=== PATIENT | male | born 1940 | race Caucasian/White ===

== ENCOUNTER 2020-11-24 11:37 | Outpatient (REF) | payer MEDICARE, OTHER, SELFPAY ==
[2020-11-24 13:59] LABS: MANUAL DIFF FLAG NO
[2020-11-24 14:07] LABS: Basophils Percent Auto 0.2 % (0-2); Eosinophils Absolute Auto 0.1 X10*3/uL (0.0-0.4); Eosinophils Percent Auto 1.2 % (0-4); Hematocrit 38.7 % (42-52); Hemoglobin 12.7 g/dl (14.0-18.0); Imm Gran Abs Auto 0.03 X10*3/uL (0.00-0.03); Imm Gran Pct Auto 0.5 % (0.0-0.4); Lymphocytes Absolute Auto 0.8 X10*3/uL (1.2-4.9); Lymphocytes Percent Auto 13.4 % (20-40); Mean Corpuscular HGB Conc 32.8 g/dl (31.0-36.0); Mean Corpuscular Hemoglobin 26.6 pg (27.0-33.0); Monocytes Absolute Auto 0.5 X10*3/uL (0.1-1.2); Monocytes Percent Auto 8.7 % (2-11); Neutrophils Absolute Auto 4.4 X10*3/uL (2.0-8.3); Platelet Count 176 X10*3/uL (160-400); Red Blood Count 4.78 X10*6/uL (4.60-5.80); Red Cell Distribution Width 13.2 % (11.0-16.0); White Blood Count 5.8 X10*3/uL (4.8-10.8)
[2020-11-24 14:39] LABS: Alanine Aminotransferase 21 U/L (0-40); Albumin Level 4.1 g/dL (3.5-5.0); Alkaline Phosphatase 66 U/L (39-117); Anion Gap 16 (12-20); Aspartate Amino Transferase 20 U/L (5-37); Bilirubin Direct 0.4 mg/dL (0.0-0.5); Blood Urea Nitrogen 13 mg/dL (9-16); Calcium 8.4 mg/dL (8.4-10.2); Carbon Dioxide 23 mmol/L (22-29); Chloride 105 mmol/L (96-108); Estimated Glomerular Filt Rate 53; Glucose Random 98 mg/dL (60-115); Potassium 4.3 mmol/l (3.3-5.1); Sodium 140 mmol/L (135-145); Total Protein 6.6 g/dL (6.5-8.0)
== END 2020-11-24 11:38 | disposition home or self-care (01) ==
LOC: HO.HMGCLDS 11:37
PROVIDERS: PCP Internal Medicine; Visit Provider Internal Medicine
DX: I10 Essential (primary) hypertension (principal); Z20.822 Contact with and (suspected) exposure to COVID-19; N40.0 Benign prostatic hyperplasia without lower urinary tract symptoms; F33.9 Major depressive disorder, recurrent, unspecified; R46.89 Other symptoms and signs involving appearance and behavior
CPT/HCPCS: 36415; 80048; 80076; 85025; U0003

== ENCOUNTER 2021-02-27 13:25 | Emergency (ER) | payer MEDICARE, BC, SELFPAY ==
--- NOTE | ~2021-02-27 | CT_ITS ---
EXAMINATION: CT CHEST WITHOUT CONTRAST CLINICAL INFORMATION: Dyspnea. COVID since November. COMPARISON: None TECHNIQUE: Multidetector volumetric CT imaging of the chest was done. Axial MIP volume rendering provided. Sagittal and coronal reformatted images were obtained. This CT examination was performed using dose optimization techniques as appropriate, variously including the following: *Automated exposure control *Adjustment of mA and/or kV according to patient size (this includes techniques or standardized protocols for targeted exams where dose is matched to indication/reason for exam; i.e. extremities or head) *Use of iterative reconstruction technique DLP: 270 mGy-cm FINDINGS: LUNGS: No evidence of acute pneumonitis or parenchymal consolidation. There is a lymph node along the minor fissure. There is a 3 mm subpleural nodule along the lateral left upper lobe on image 107 of series 5. No additional 3 mm nodule is present within the lateral right upper lobe on the same image. Scattered areas of subpleural reticulation present. Within the dependent lower lobes, there is mild subpleural scarring and accompanying traction bronchiolectasis. MEDIASTINUM: Normal heart size. Coronary calcifications. Great vessels normal caliber. No mediastinal or hilar adenopathy. Large hiatal hernia. PLEURA: There is no pleural effusion. No pleural mass or thickening. AXILLA: No lymphadenopathy. UPPER ABDOMEN: There is a 2.9 cm cyst within the anterior upper pole of the left kidney. OSSEOUS STRUCTURES: Unremarkable. CT/CT chest wo con IMPRESSION: * No evidence of acute pneumonitis or parenchymal consolidation. * Minimal subpleural fibrotic changes present throughout both lungs. * Incidental 3 mm nodules within the upper lobes bilaterally as described. If the patient is considered high risk, consider follow-up CT chest in one year per the Fleischner Society guidelines. * Large hiatal hernia. * Coronary calcifications.
[2021-02-27 13:42] VITALS: BP 116/56; PULSE 65; RESP 14; TEMP 36.8; O2SAT 98; BMI 28.3
--- NOTE | 2021-02-27 14:47 | ECG_ITS ---
Test Reason : SOB Blood Pressure : / mmHG Vent. Rate : 054 BPM Atrial Rate : 054 BPM P-R Int : 132 ms QRS Dur : 084 ms QT Int : 434 ms P-R-T Axes : 069 032 040 degrees QTc Int : 411 ms Sinus bradycardia with Premature atrial complexes with Aberrant conduction Otherwise normal ECG When compared with ECG of 04-FEB-2019 15:19, Aberrant conduction is now Present Referred By: Sola Lacy Electronically Signed By:Dario Burton
--- NOTE | 2021-02-27 14:48 | ED_ITS ---
HPI - SOB/Dyspnea General Chief Complaint: Dyspnea Stated Complaint: DIFF BREATHING Time Seen by Provider: 02/27/21 13:31 Source: patient and old records reviewed Mode of arrival: ambulatory Limitations: no limitations History of Present Illness HPI Narrative: 81 yo male with dyspnea for 3 months post COVID not back to baseline, also c/o runny nose MD elicited complaint: shortness of breath Pertinent past history: other (COVID in November) Onset (ago): month(s) Context: recent illness and occurred during exertion Timing: intermittent Severity: mild Exacerbating factors: exertion Relieving factors: nothing Associated symptoms: other (rhinorrhea) Treatment prior to arrival: none Related Data Home Medications Medication Instructions Recorded Confirmed aspirin 81 mg tablet,delayed 81 mg PO DAILY 11/23/20 02/24/21 release ferrous sulfate 325 mg (65 mg 325 mg PO DAILY 11/23/20 02/24/21 iron) tablet risperidone 0.5 mg tablet 0.5 mg PO BEDTIME 11/23/20 02/24/21 tamsulosin 0.4 mg capsule 0.4 mg PO DAILY 11/23/20 02/24/21 risperidone 1 mg tablet 1 mg PO BEDTIME 02/24/21 02/24/21 Previous Rx's Medication Instructions Recorded risperidone 0.5 mg tablet 0.5 mg PO DAILY PRN 30 Days #30 tab 11/22/20 omeprazole 40 mg capsule,delayed 40 mg PO DAILY #90 cap 12/22/20 release citalopram 20 mg tablet 20 mg PO DAILY 90 Days #90 tab 01/11/21 lisinopril 10 mg tablet 10 mg PO DAILY #90 tab 02/07/21 fluticasone propionate 1 spray INTRANASAL DAILY #16 g 02/27/21 Allergies Allergy/AdvReac Type Severity Reaction Status Date / Time No Known Drug Allergies Allergy Unknown NONE Verified 02/24/21 14:20 [NO KNOWN DRUG ALLERGIES] Review of Systems Review of Systems: Constitutional : No Fever, No Chills ENT/Mouth : No sore throat, pos Rhinorrhea, No Swallowing Difficulty Eyes: No Eye Pain, No Swelling, No Redness Cardiovascular : No Chest Pain, positive SOB, No Orthopnea, no Edema Respiratory : No Cough, No Sputum, No Wheezing, positive dyspnea Gastrointestinal : No Nausea, No Vomiting, No Diarrhea, No abdominal Pain, No Hematochezia, No Melena Genitourinary : No Dysuria, No Urinary Frequency, No Hematuria Musculoskeletal : No joint pain, No Myalgias Skin : No Skin Lesions, No rash Neuro : No Weakness, No Numbness, No Dizziness, No Headache Psych : No Anxiety/Panic, No Depression Heme/Lymph: No Bruising, No Lymphadenopathy Endocrine : No Polyuria, No Polydipsia All other systems reviewed and are negative PMFSH Past Medical History Attestation statement: The following information was validated with the patient. Source: old records reviewed Medical History Benign prostatic hyperplasia COVID-19 virus infection Depression, major, recurrent Hypertension, essential Surgical History History of orthopedic surgery Family History Family History Father Unknown family medical history Mother Unknown family medical history Social History Social History (Updated 02/27/21 @ 15:19 by Sola Lacy DO) Smoking Status: Former smoker Use of substances other than those prescribed or required for medical reasons: No Advance Directives: Yes Advance Directives Information Provided: Yes Advance Directives on File: No Physical Exam Vital Signs: Vital Signs: Last Vital Signs Temp 98.2 F 02/27/21 15:32 Pulse 54 02/27/21 15:32 Resp 16 02/27/21 15:32 BP 131/61 02/27/21 15:32 Pulse Ox 97 02/27/21 15:32 Body Mass Index 28.3 Appearance: Alert. Oriented X3. No acute distress. Eyes: Pupils equal, round and reactive to light. ENT: Pharynx normal. Neck: Normal inspection. Neck supple. CVS: Normal heart rate and rhythm. Pulses normal. Respiratory: No respiratory distress. Breath sounds normal. Abdomen: Soft and non-tender. Skin: Skin warm and dry. Normal skin color. Normal skin turgor. Extremities: No lower extremity edema. No calf ttp Neuro: Oriented X 3. No motor deficit. No sensory deficit. Course Course Course Narrative: likely pulm fibrosis will start on flonase and refer to pulmonology negative labs stable for DC MDM - SOB/Dyspnea MDM Narrative Medical decision making narrative: 81 yo male with COVID in November since then [place] no CP, worsening over past month also notes significant runny nose, sent by urgent care for further workup, no fevers, cough - states he just hasn't felt back to his baseline after COVID, labs, EKG, CT chest to assess lungs for scarring Lab Data Result diagrams: 02/27/21 15:41 02/27/21 15:41 Labs: Lab Results 02/27/21 02/27/21 02/27/21 Range/Units 15:41 15:41 15:41 WBC 6.4 (4.8-10.8) X10*3/uL RBC 4.82 (4.60-5.80) X10*6/uL Hgb 12.7 L (14.0-18.0) g/dl Hct 38.7 L (42-52) % MCV 80.3 (80-98) fL MCH 26.3 L (27.0-33.0) pg MCHC 32.8 (31.0-36.0) g/dl RDW 14.7 (11.0-16.0) % Plt Count 182 (160-400) X10*3/uL MPV 11.5 (9.4-12.4) fL Immature Gran % (Auto) 0.5 H (0.0-0.4) % Neut % (Auto) 51.9 (45-73) % Lymph % (Auto) 36.1 (20-40) % [place] % (Auto) 7.9 (2-11) % Eos % (Auto) 3.0 (0-4) % Baso % (Auto) 0.6 (0-2) % Lymph # (Auto) 2.3 (1.2-4.9) X10*3/uL [place] # (Auto) 0.5 (0.1-1.2) X10*3/uL Eos # (Auto) 0.2 (0.0-0.4) X10*3/uL Baso # (Auto) 0.0 (0.0-0.2) X10*3/uL Abs Immat Gran (auto) 0.03 (0.00-0.03) X10*3/uL Absolute Neuts (auto) 3.3 (2.0-8.3) X10*3/uL Absolute Nucleated RBC 0.000 (0.0-0.012) X10*3/uL Nucleated RBC % (auto) 0.0 (0.0-0.2) /100WBC Hold Blue Top SEE NOTE Sodium 141 (135-145) mmol/L Potassium 3.9 (3.3-5.1) mmol/L Chloride 110 H (96-108) mmol/L Carbon Dioxide 20 L (22-29) mmol/L Anion Gap 15 (12-20) BUN 18 H (9-16) mg/dL Creatinine 1.17 (0.5-1.4) mg/dL Estim Creat Clear Calc 49.0 Estimated GFR > 60 Random Glucose 79 (60-115) mg/dL Calcium 8.7 (8.4-10.2) mg/dL Magnesium 2.0 (1.6-2.6) mg/dL Total Bilirubin 0.7 (0.0-1.0) mg/dL Direct Bilirubin 0.2 (0.0-0.5) mg/dL AST 11 D (5-37) U/L ALT 14 (0-40) U/L Alkaline Phosphatase 87 D (39-117) U/L Troponin I High Sens (<3.5-35.0) ng/L B-Natriuretic Peptide (<100) pg/mL Total Protein 6.2 L (6.5-8.0) g/dL Albumin 4.1 (3.5-5.0) g/dL / Range/Units 15:41 WBC (4.8-10.8) X10*3/uL RBC (4.60-5.80) X10*6/uL Hgb (14.0-18.0) g/dl Hct (42-52) % MCV (80-98) fL MCH (27.0-33.0) pg MCHC (31.0-36.0) g/dl RDW (11.0-16.0) % Plt Count (160-400) X10*3/uL MPV (9.4-12.4) fL Immature Gran % (Auto) (0.0-0.4) % Neut % (Auto) (45-73) % Lymph % (Auto) (20-40) % [place] % (Auto) (2-11) % Eos % (Auto) (0-4) % Baso % (Auto) (0-2) % Lymph # (Auto) (1.2-4.9) X10*3/uL [place] # (Auto) (0.1-1.2) X10*3/uL Eos # (Auto) (0.0-0.4) X10*3/uL Baso # (Auto) (0.0-0.2) X10*3/uL Abs Immat Gran (auto) (0.00-0.03) X10*3/uL Absolute Neuts (auto) (2.0-8.3) X10*3/uL Absolute Nucleated RBC (0.0-0.012) X10*3/uL Nucleated RBC % (auto) (0.0-0.2) /100WBC Hold Blue Top Sodium (135-145) mmol/L Potassium (3.3-5.1) mmol/L Chloride (96-108) mmol/L Carbon Dioxide (22-29) mmol/L Anion Gap (12-20) BUN (9-16) mg/dL Creatinine (0.5-1.4) mg/dL Estim Creat Clear Calc Estimated GFR Random Glucose (60-115) mg/dL Calcium (8.4-10.2) mg/dL Magnesium (1.6-2.6) mg/dL Total Bilirubin (0.0-1.0) mg/dL Direct Bilirubin (0.0-0.5) mg/dL AST (5-37) U/L ALT (0-40) U/L Alkaline Phosphatase (39-117) U/L Troponin I High Sens < 3.5 (<3.5-35.0) ng/L B-Natriuretic Peptide 53 (<100) pg/mL Total Protein (6.5-8.0) g/dL Albumin (3.5-5.0) g/dL ECG Data Attestation: I personally reviewed and interpreted this ECG as follows: ECG interpretation date: 02/27/21 ECG interpretation time: 15:19 Interpretation: Rate: 54 Rhythm: sinus bradycardia occ PACs [place]: normal Normal P waves. Normal DEL. Normal QRS complex. ST T wave : no [place], non specific qTC: normal prior studies: no acute ischemia The study has been interpreted contemporaneously by me. . Discharge Plan Discharge Clinical Impression: Chronic dyspnea, Pulmonary fibrosis Patient Disposition: Home, Self-Care Instructions: Pulmonary Fibrosis (ED) Additional Instructions: return to ED for any worsening symptoms or concerns Prescriptions: New fluticasone propionate 50 mcg/actuation spray,suspension 1 spray intranasal DAILY Qty: 16 RF: 0 No Action risperidone 0.5 mg tablet 0.5 mg PO DAILY PRN (Reason: agitation) 30 Days Qty: 30 RF: 0 aspirin [Adult Low Dose Aspirin] 81 mg tablet,delayed release (DR/EC) 81 mg PO DAILY RF: 0 tamsulosin 0.4 mg capsule 0.4 mg PO DAILY RF: 0 ferrous sulfate 325 mg (65 mg iron) tablet 325 mg PO DAILY RF: 0 risperidone [Risperdal] 0.5 mg tablet 0.5 mg PO BEDTIME RF: 0 omeprazole 40 mg capsule,delayed release(DR/EC) 40 mg PO DAILY Qty: 90 RF: 0 citalopram 20 mg tablet 20 mg PO DAILY 90 Days Qty: 90 RF: 0 lisinopril 10 mg tablet 10 mg PO DAILY Qty: 90 RF: 3 risperidone 1 mg tablet 1 mg PO BEDTIME RF: 0 Referrals: Ger Huizar MD [Physician] - 2 weeks
[2021-02-27 15:32] VITALS: BP 131/61; PULSE 54; RESP 16; TEMP 36.8; O2SAT 97
[2021-02-27 15:46] LABS: MANUAL DIFF FLAG NO
[2021-02-27 15:47] LABS: Basophils Percent Auto 0.6 % (0-2); Eosinophils Absolute Auto 0.2 X10*3/uL (0.0-0.4); Hematocrit 38.7 % (42-52); Hemoglobin 12.7 g/dl (14.0-18.0); Imm Gran Abs Auto 0.03 X10*3/uL (0.00-0.03); Imm Gran Pct Auto 0.5 % (0.0-0.4); Lymphocytes Absolute Auto 2.3 X10*3/uL (1.2-4.9); Lymphocytes Percent Auto 36.1 % (20-40); Mean Corpuscular HGB Conc 32.8 g/dl (31.0-36.0); Mean Corpuscular Hemoglobin 26.3 pg (27.0-33.0); Mean Corpuscular Volume 80.3 fL (80-98); Mean Platelet Volume 11.5 fL (9.4-12.4); Monocytes Absolute Auto 0.5 X10*3/uL (0.1-1.2); Monocytes Percent Auto 7.9 % (2-11); Neutrophils Absolute Auto 3.3 X10*3/uL (2.0-8.3); Neutrophils Percent Auto 51.9 % (45-73); Platelet Count 182 X10*3/uL (160-400); Red Blood Count 4.82 X10*6/uL (4.60-5.80); Red Cell Distribution Width 14.7 % (11.0-16.0); White Blood Count 6.4 X10*3/uL (4.8-10.8)
[2021-02-27 16:11] LABS: Alanine Aminotransferase 14 U/L (0-40); Albumin Level 4.1 g/dL (3.5-5.0); Alkaline Phosphatase 87 U/L (39-117); Anion Gap 15 (12-20); Aspartate Amino Transferase 11 U/L (5-37); Bilirubin Direct 0.2 mg/dL (0.0-0.5); Bilirubin Total 0.7 mg/dL (0.0-1.0); Blood Urea Nitrogen 18 mg/dL (9-16); Calcium 8.7 mg/dL (8.4-10.2); Carbon Dioxide 20 mmol/L (22-29); Chloride 110 mmol/L (96-108); Estimated Glomerular Filt Rate > 60; Glucose Random 79 mg/dL (60-115); Potassium 3.9 mmol/L (3.3-5.1); Sodium 141 mmol/L (135-145); Total Protein 6.2 g/dL (6.5-8.0)
[2021-02-27 16:19] LABS: Troponin-I High Sensitivity < 3.5 ng/L (<3.5-35.0)
[2021-02-27 16:22] LABS: B Type Natriuretic Peptide 53 pg/mL (<100)
[2021-02-27 16:26] VITALS: BP 117/60; PULSE 58; RESP 16; O2SAT 96
== END 2021-02-27 16:55 | disposition home or self-care (01) ==
PROVIDERS: Emergency Provider Emergency Medicine; PCP Internal Medicine
DX: J84.10 Pulmonary fibrosis, unspecified (principal); R06.00 Dyspnea, unspecified; Z79.899 Other long term (current) drug therapy; Z87.891 Personal history of nicotine dependence; Z86.16 Personal history of COVID-19; Z79.82 Long term (current) use of aspirin
CPT/HCPCS: 36415; 71250; 80048; 80076; 83735; 83880; 84484; 85025; 93005; 99284

== ENCOUNTER → 2021-03-15 13:44 | Outpatient (BNVA) | payer MEDICARE, OTHER, SELFPAY | PROVIDERS: PCP Internal Medicine; Visit Provider Internal Medicine | DX: R06.02 Shortness of breath (principal); B94.8 Sequelae of other specified infectious and parasitic diseases; F03.90 Unspecified dementia, unspecified severity, without behavioral disturbance, psychotic disturbance, mood disturbance, and anxiety | CPT/HCPCS: 99202 ==

== ENCOUNTER → 2021-07-11 14:59 | Outpatient (BNVA) | payer MEDICARE, OTHER, SELFPAY | PROVIDERS: PCP Internal Medicine; Visit Provider Internal Medicine | DX: J30.9 Allergic rhinitis, unspecified (principal); R06.02 Shortness of breath; B94.8 Sequelae of other specified infectious and parasitic diseases; Z87.891 Personal history of nicotine dependence | CPT/HCPCS: 99212 ==

== ENCOUNTER 2021-08-24 15:07 | Outpatient (REF) | payer MEDICARE, OTHER, SELFPAY ==
[2021-08-24 16:33] LABS: MANUAL DIFF FLAG NO
[2021-08-24 16:37] LABS: Basophils Percent Auto 0.4 % (0-2); Eosinophils Absolute Auto 0.2 X10*3/uL (0.0-0.4); Eosinophils Percent Auto 3.3 % (0-4); Hematocrit 40.8 % (42-52); Hemoglobin 13.5 g/dl (14.0-18.0); Imm Gran Abs Auto 0.03 X10*3/uL (0.00-0.03); Imm Gran Pct Auto 0.4 % (0.0-0.4); Lymphocytes Absolute Auto 1.9 X10*3/uL (1.2-4.9); Lymphocytes Percent Auto 27.9 % (20-40); Mean Corpuscular HGB Conc 33.1 g/dl (31.0-36.0); Mean Corpuscular Hemoglobin 26.9 pg (27.0-33.0); Mean Corpuscular Volume 81.4 fL (80-98); Mean Platelet Volume 11.9 fL (9.4-12.4); Monocytes Absolute Auto 0.4 X10*3/uL (0.1-1.2); Monocytes Percent Auto 6.4 % (2-11); Neutrophils Absolute Auto 4.2 X10*3/uL (2.0-8.3); Neutrophils Percent Auto 61.6 % (45-73); Platelet Count 207 X10*3/uL (160-400); Red Blood Count 5.01 X10*6/uL (4.60-5.80); Red Cell Distribution Width 13.5 % (11.0-16.0); White Blood Count 6.9 X10*3/uL (4.8-10.8)
[2021-08-24 17:02] LABS: Alanine Aminotransferase 11 U/L (0-40); Albumin Level 4.5 g/dL (3.5-5.0); Alkaline Phosphatase 96 U/L (39-117); Anion Gap 13 (12-20); Aspartate Amino Transferase 11 U/L (5-37); Bilirubin Total 0.8 mg/dL (0.0-1.0); Blood Urea Nitrogen 12 mg/dL (9-16); Calcium 9.2 mg/dL (8.4-10.2); Carbon Dioxide 21 mmol/L (22-29); Chloride 108 mmol/L (96-108); Estimated Glomerular Filt Rate 50; Glucose Random 107 mg/dL (60-115); Sodium 138 mmol/L (135-145); Total Protein 6.7 g/dL (6.5-8.0)
== END 2021-08-24 15:08 | disposition home or self-care (01) ==
LOC: HO.HMGCLDS 15:07
PROVIDERS: PCP Internal Medicine; Visit Provider Internal Medicine
DX: F03.90 Unspecified dementia, unspecified severity, without behavioral disturbance, psychotic disturbance, mood disturbance, and anxiety (principal); F33.9 Major depressive disorder, recurrent, unspecified; I10 Essential (primary) hypertension; J30.9 Allergic rhinitis, unspecified; K21.9 Gastro-esophageal reflux disease without esophagitis; N40.0 Benign prostatic hyperplasia without lower urinary tract symptoms
CPT/HCPCS: 36415; 80053; 85025

== ENCOUNTER 2022-05-12 09:22 | Outpatient (REF) | payer MEDICARE, OTHER, SELFPAY ==
[2022-05-12 11:25] LABS: MANUAL DIFF FLAG NO
[2022-05-12 11:36] LABS: Basophils Percent Auto 0.5 % (0-2); Eosinophils Absolute Auto 0.2 X10*3/uL (0.0-0.4); Hematocrit 39.3 % (42.0-52.0); Imm Gran Abs Auto 0.02 X10*3/uL (0.00-0.03); Imm Gran Pct Auto 0.4 % (0.0-0.4); Lymphocytes Percent Auto 36.4 % (20-40); Mean Corpuscular HGB Conc 33.1 g/dl (31.0-36.0); Mean Corpuscular Hemoglobin 26.9 pg (27.0-33.0); Mean Corpuscular Volume 81.4 fL (80.0-98.0); Mean Platelet Volume 11.7 fL (9.4-12.4); Monocytes Absolute Auto 0.5 X10*3/uL (0.1-1.2); Monocytes Percent Auto 8.3 % (2-11); Neutrophils Absolute Auto 2.8 x10*3/uL (2.0-8.3); Neutrophils Percent Auto 50.4 % (45-73); Platelet Count 186 X10*3/uL (160-400); Red Blood Count 4.83 X10*6/uL (4.60-5.80); Red Cell Distribution Width 14.1 % (11.0-16.0); White Blood Count 5.6 X10*3/uL (4.8-10.8)
[2022-05-12 11:48] LABS: Alanine Aminotransferase 11 U/L (0-40); Albumin Level 4.4 g/dL (3.5-5.0); Alkaline Phosphatase 96 U/L (39-117); Anion Gap 10 (12-20); Aspartate Amino Transferase 12 U/L (5-37); Bilirubin Total 0.3 mg/dL (0.0-1.0); Blood Urea Nitrogen 15 mg/dL (9-16); Calcium 9.1 mg/dL (8.4-10.2); Carbon Dioxide 26 mmol/L (22-29); Chloride 109 mmol/L (96-108); Estimated Glomerular Filt Rate 52; Glucose Random 107 mg/dL (60-115); Potassium 4.3 mmol/L (3.3-5.1); Sodium 141 mmol/L (135-145); Total Protein 6.9 g/dL (6.5-8.0)
== END 2022-05-12 09:23 | disposition home or self-care (01) ==
LOC: HO.HMGCLDS 09:22
PROVIDERS: Visit Provider Internal Medicine
DX: F03.90 Unspecified dementia, unspecified severity, without behavioral disturbance, psychotic disturbance, mood disturbance, and anxiety (principal); F33.9 Major depressive disorder, recurrent, unspecified; I10 Essential (primary) hypertension; K21.9 Gastro-esophageal reflux disease without esophagitis; N40.0 Benign prostatic hyperplasia without lower urinary tract symptoms
CPT/HCPCS: 36415; 80053; 85025

== ENCOUNTER 2023-02-22 11:32 | Outpatient (REF) | payer MEDICARE, OTHER, SELFPAY ==
[2023-02-22 11:46] LABS: MANUAL DIFF FLAG NO
[2023-02-22 12:08] LABS: Basophils Percent Auto 0.7 % (0-2); Eosinophils Absolute Auto 0.2 X10*3/uL (0.0-0.4); Eosinophils Percent Auto 3.5 % (0-4); Hematocrit 39.6 % (42.0-52.0); Hemoglobin 12.9 g/dl (14.0-18.0); Imm Gran Abs Auto 0.04 X10*3/uL (0.00-0.03); Imm Gran Pct Auto 0.7 % (0.0-0.4); Lymphocytes Percent Auto 33.1 % (20-40); Mean Corpuscular HGB Conc 32.6 g/dl (31.0-36.0); Mean Corpuscular Hemoglobin 25.6 pg (27.0-33.0); Mean Corpuscular Volume 78.7 fL (80.0-98.0); Mean Platelet Volume 11.7 fL (9.4-12.4); Monocytes Absolute Auto 0.5 X10*3/uL (0.1-1.2); Monocytes Percent Auto 8.5 % (2-11); Neutrophils Absolute Auto 3.2 x10*3/uL (2.0-8.3); Neutrophils Percent Auto 53.5 % (45-73); Platelet Count 203 X10*3/uL (160-400); Red Blood Count 5.03 X10*6/uL (4.60-5.80); Red Cell Distribution Width 13.6 % (11.0-16.0)
[2023-02-22 12:35] LABS: Alanine Aminotransferase 10 U/L (0-40); Albumin Level 4.4 g/dL (3.5-5.0); Alkaline Phosphatase 97 U/L (39-117); Anion Gap 10 (12-20); Aspartate Amino Transferase 13 U/L (5-37); Bilirubin Total 0.6 mg/dL (0.0-1.0); Blood Urea Nitrogen 18 mg/dL (9-16); Calcium 8.9 mg/dL (8.4-10.2); Carbon Dioxide 28 mmol/L (22-29); Chloride 108 mmol/L (96-108); Estimated Glomerular Filt Rate 50; Glucose Random 95 mg/dL (60-115); Potassium 4.5 mmol/L (3.3-5.1); Sodium 141 mmol/L (135-145); Total Protein 6.5 g/dL (6.5-8.0)
[2023-02-22 13:00] LABS: Vitamin B12 308 pg/mL (200-900)
[2023-02-24 07:28] LABS: LDL Cholesterol Direct 99 mg/dL (<100)
[2023-02-28 10:34] LABS: Vitamin D 25-OH, D2 <4 ng/mL; Vitamin D 25-OH, D3 13 ng/mL; Vitamin D 25-OH, Total 13 ng/mL (30-100)
== END 2023-02-22 11:33 | disposition home or self-care (01) ==
LOC: HO.LAB 11:32
PROVIDERS: PCP Internal Medicine; Visit Provider Internal Medicine
DX: I10 Essential (primary) hypertension (principal); F33.9 Major depressive disorder, recurrent, unspecified; N40.0 Benign prostatic hyperplasia without lower urinary tract symptoms; K21.9 Gastro-esophageal reflux disease without esophagitis; F03.90 Unspecified dementia, unspecified severity, without behavioral disturbance, psychotic disturbance, mood disturbance, and anxiety; R53.83 Other fatigue
CPT/HCPCS: 36415; 80053; 82306; 82607; 83721; 84443; 85025

== ENCOUNTER 2023-06-20 12:15 | Outpatient (AMB) | payer MEDICARE, OTHER, SELFPAY ==
--- NOTE | 2023-06-20 12:17 | MHC.PC.OV ---
Vital Signs 06/20/23 12:19 Height 5 ft 6 in Weight 164 lb 8 oz BMI 26.5 BP 140/62 H Blood Pressure Location Rt brachial Position Sitting Pulse 76 Pulse Source Pulse Oximeter Pulse Oximetry (%) 96 Oxygen Delivery Method Room Air Intake Visit Reasons: Benign prostatic hyperplasia ~ Follow Up Allergies No Known Drug Allergies [NO KNOWN DRUG ALLERGIES] Allergy (Unknown, Verified 06/20/23 12:18) NONE Medication List - Last Reconciled 06/20/23 by Elen Gamez MD aspirin (Adult Low Dose Aspirin) 81 mg PO DAILY citalopram 20 mg PO DAILY lisinopril 10 mg PO DAILY omeprazole 40 mg PO DAILY Tobacco use date assessed: 06/20/23 Fall risk assessment: No Falls in past year Last assessed Fall Risk: 06/20/23 Dental Screening Dental Screen Date: 06/20/23 Did you have a dental visit in the last 12 months?: No Did you have a dental problem in the last 6 months where you did not have access to dental care?: No Was dental information given to patient?: No HPI Benign prostatic hyperplasia ~ Follow Up HPI Details Patient is 83-year-old gentleman this is his regular follow-up appointment Patient is here with his today Patient is stable and is very active. Dementia is stable he is answering appropriately He was on risperidone for agitation in the past which has been stopped he is doing well since he has been started on citalopram Blood pressure is stable patient is on lisinopril 10 mg GERD is stable with omeprazole 40 mg.? 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 Labs needs to be repeated in 3 months with a follow-up appointment in 4 months [facility] Medical History Benign prostatic hyperplasia COVID-19 virus infection Depression, major, recurrent Hypertension, essential Post-COVID syndrome Surgical History History of orthopedic surgery Family History Father Unknown family medical history Mother Unknown family medical history Social History Housing: House Patient Tobacco Use Status: Former Tobacco user Quit Date: 1999 Tobacco use type: Cigarette e-Cigarette/Vaping Use: Never Used service: No Current occupational status: retired Cognitive needs: No Hearing needs: No Vision needs: No Questionnaire Thrive Questionnaire Date Thrive assessed: 05/24/21 AUDIT C Alcohol Use Questionnaire (AUDIT-C) 1. How often do you have a drink containing alcohol?: Monthly or less 2. How many drinks containing alcohol do you have on a typical day when you are drinking?: 1 or 2 3. How often do you have six or more drinks on one occasion?: Never Total Score: 1 Review of Systems Const Denies chills and Denies fever(s) ENT Denies epistaxis and Denies nasal discharge Card Denies chest pain Resp Denies chest congestion, Denies cough and Denies hemoptysis GI Denies diarrhea and Denies nausea Skin/Breast Denies rash Neuro Reports no additional complaints Psych Reports no additional complaints Endo Reports no additional complaints Physical exam (Primary Care) Vital Signs: Last Vital Signs Pulse 76 06/20/23 12:19 BP 140/62 H 06/20/23 12:19 Pulse Ox 96 06/20/23 12:19 Oxygen Delivery Method Room Air 06/20/23 12:19 BMI result Body Mass Index 26.5 Tobacco/Smoking Status: Tobacco use Status Tobacco use date assessed 06/20/23 06/20/23 12:20 Patient Tobacco Use Status Former Tobacco user 06/20/23 12:18 Tobacco use type Cigarette 06/20/23 12:18 e-Cigarette/Vaping Use Never Used 06/20/23 12:18 Thrive Assessment: Date of Thrive Assessment Date Thrive assessed 05/24/21 06/20/23 12:18 Const General: cooperative, comfortable and no acute distress Orientation/consciousness: patient oriented x3 [facility] Head: Yes normocephalic Eyes General: appearance normal, both eyes and all related structures Neck Neck: Yes supple Resp Effort & Inspection: normal respiratory effort, no cough and no stridor Cardio Rhythm: regular rhythm Heart sounds: S1 normal heart sound present and S2 normal heart sound present Skin General skin exam: turgor normal Neuro General: patient oriented x3, tone normal and moves all extremities Extrem Right lower extremity: no edema Left lower extremity: no edema Assessment and Plan Assessment & Plan (1) Hypertension, essential: Code(s): I10 - Essential (primary) hypertension (2) Depression, major, recurrent: Code(s): F33.9 - Major depressive disorder, recurrent, unspecified (3) Benign prostatic hyperplasia: Code(s): N40.0 - Benign prostatic hyperplasia without lower urinary tract symptoms (4) Dementia, senile: Code(s): F03.90 - Unspecified dementia, unspecified severity, without behavioral disturbance, psychotic disturbance, mood disturbance, and anxiety (5) Chronic GERD: Code(s): K21.9 - Gastro-esophageal reflux disease without esophagitis (6) Nephropathy: Code(s): N28.9 - Disorder of kidney and ureter, unspecified Plan Patient is 83-year-old gentleman this is his regular follow-up appointment Patient is here with his today Patient is stable and is very active. Dementia is stable he is answering appropriately He was on risperidone for agitation in the past which has been stopped he is doing well since he has been started on citalopram Blood pressure is stable patient is on lisinopril 10 mg GERD is stable with omeprazole 40 mg.? 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 Labs needs to be repeated in 3 months with a follow-up appointment in 4 months Orders: Orders Complete Blood Count Auto Diff Today F03.90 - Unspecified dementia, unspecified severity, without behavioral disturbance, psychotic disturbance, mood disturbance, and anxiety, F33.9 - Major depressive disorder, recurrent, unspecified, I10 - Essential (primary) hypertension, K21.9 - Gastro-esophageal reflux disease without esophagitis, N28.9 - Disorder of kidney and ureter, unspecified, N40.0 - Benign prostatic hyperplasia without lower urinary tract symptoms Comprehensive Met. Panel Today F03.90 - Unspecified dementia, unspecified severity, without behavioral disturbance, psychotic disturbance, mood disturbance, and anxiety, F33.9 - Major depressive disorder, recurrent, unspecified, I10 - Essential (primary) hypertension, K21.9 - Gastro-esophageal reflux disease without esophagitis, N28.9 - Disorder of kidney and ureter, unspecified, N40.0 - Benign prostatic hyperplasia without lower urinary tract symptoms LDL Cholesterol Direct Today F03.90 - Unspecified dementia, unspecified severity, without behavioral disturbance, psychotic disturbance, mood disturbance, and anxiety, F33.9 - Major depressive disorder, recurrent, unspecified, I10 - Essential (primary) hypertension, K21.9 - Gastro-esophageal reflux disease without esophagitis, N28.9 - Disorder of kidney and ureter, unspecified, N40.0 - Benign prostatic hyperplasia without lower urinary tract symptoms TSH reflex Free T4 Today F03.90 - Unspecified dementia, unspecified severity, without behavioral disturbance, psychotic disturbance, mood disturbance, and anxiety, F33.9 - Major depressive disorder, recurrent, unspecified, I10 - Essential (primary) hypertension, K21.9 - Gastro-esophageal reflux disease without esophagitis, N28.9 - Disorder of kidney and ureter, unspecified, N40.0 - Benign prostatic hyperplasia without lower urinary tract symptoms Prostate Specific Antigen Today N40.0 - Benign prostatic hyperplasia without lower urinary tract symptoms Medications: New aspirin (Adult Low Dose Aspirin) 81 mg PO DAILY 90 tabs 0RF Refilled citalopram 20 mg PO DAILY 90 tabs 1RF lisinopril 10 mg PO DAILY 90 tabs 1RF omeprazole 40 mg PO DAILY 90 caps 1RF Coding Level of Care Code Est Pt Level 4 (86889) Diagnoses Hypertension, essential I10 Depression, major, recurrent F33.9 Benign prostatic hyperplasia N40.0 Dementia, senile F03.90 Chronic GERD K21.9 Nephropathy N28.9
[2023-06-20 12:19] VITALS: BP 140/62; PULSE 76; O2SAT 96; BMI 26.5
== END 2023-06-20 13:11 | disposition home or self-care (01) ==
PROVIDERS: PCP Internal Medicine; Visit Provider Internal Medicine
DX: I10 Essential (primary) hypertension (principal); F33.9 Major depressive disorder, recurrent, unspecified; F03.90 Unspecified dementia, unspecified severity, without behavioral disturbance, psychotic disturbance, mood disturbance, and anxiety; K21.9 Gastro-esophageal reflux disease without esophagitis; N40.0 Benign prostatic hyperplasia without lower urinary tract symptoms; N28.9 Disorder of kidney and ureter, unspecified
CPT/HCPCS: 99214

== ENCOUNTER 2023-10-08 10:19 | Outpatient (REF) | payer MEDICARE, OTHER, SELFPAY ==
[2023-10-08 10:50] LABS: MANUAL DIFF FLAG NO
[2023-10-08 11:47] LABS: Basophils Absolute Auto 0.1 X10*3/uL (0.0-0.2); Basophils Percent Auto 0.9 % (0-2); Eosinophils Absolute Auto 0.2 X10*3/uL (0.0-0.4); Eosinophils Percent Auto 3.8 % (0-4); Hematocrit 37.8 % (42.0-52.0); Imm Gran Abs Auto 0.02 X10*3/uL (0.00-0.03); Imm Gran Pct Auto 0.3 % (0.0-0.4); Lymphocytes Absolute Auto 2.2 X10*3/uL (1.2-4.9); Lymphocytes Percent Auto 38.2 % (20-40); Mean Corpuscular HGB Conc 31.7 g/dl (31.0-36.0); Mean Corpuscular Volume 75.8 fL (80.0-98.0); Monocytes Absolute Auto 0.6 X10*3/uL (0.1-1.2); Monocytes Percent Auto 10.1 % (2-11); Neutrophils Absolute Auto 2.7 x10*3/uL (2.0-8.3); Neutrophils Percent Auto 46.7 % (45-73); Platelet Count 213 X10*3/uL (160-400); Red Blood Count 4.99 X10*6/uL (4.60-5.80); Red Cell Distribution Width 16.1 % (11.0-16.0); White Blood Count 5.7 X10*3/uL (4.8-10.8)
[2023-10-08 12:19] LABS: Alanine Aminotransferase 12 U/L (0-40); Albumin Level 4.4 g/dL (3.5-5.0); Alkaline Phosphatase 87 U/L (39-117); Anion Gap 10 (12-20); Aspartate Amino Transferase 16 U/L (5-37); Bilirubin Total 0.4 mg/dL (0.0-1.0); Blood Urea Nitrogen 14 mg/dL (9-16); Calcium 9.7 mg/dL (8.4-10.2); Carbon Dioxide 26 mmol/L (22-29); Chloride 107 mmol/L (96-108); Estimated Glomerular Filt Rate 49; Glucose Random 87 mg/dL (60-115); Potassium 4.4 mmol/L (3.3-5.1); Sodium 139 mmol/L (135-145); Total Protein 7.1 g/dL (6.5-8.0)
[2023-10-08 12:31] LABS: Prostate Specific Antigen 3.78 ng/mL (<0.05-4.0)
[2023-10-08 12:36] LABS: TSH reflex Free T4 1.97 uIU/mL (0.32-4.0)
[2023-10-09 19:17] LABS: LDL Cholesterol Direct 91 mg/dL (<100)
== END 2023-10-08 10:20 | disposition home or self-care (01) ==
LOC: HO.LAB 10:19
PROVIDERS: PCP Internal Medicine; Visit Provider Internal Medicine
DX: Z12.5 Encounter for screening for malignant neoplasm of prostate (principal); I10 Essential (primary) hypertension; F33.9 Major depressive disorder, recurrent, unspecified; N40.0 Benign prostatic hyperplasia without lower urinary tract symptoms; F03.90 Unspecified dementia, unspecified severity, without behavioral disturbance, psychotic disturbance, mood disturbance, and anxiety; K21.9 Gastro-esophageal reflux disease without esophagitis; N28.9 Disorder of kidney and ureter, unspecified
CPT/HCPCS: 36415; 80053; 83721; 84153; 84443; 85025

== ENCOUNTER 2023-11-21 13:44 | Outpatient (AMB) | payer MEDICARE, OTHER, SELFPAY ==
--- NOTE | 2023-11-21 13:55 | A.OFFPC_ITS ---
Vital Signs 11/21/23 13:56 Height 5 ft 6 in Weight 168 lb 9 oz BMI 27.2 BP 138/62 Blood Pressure Location Rt brachial Position Sitting Pulse 67 Pulse Source Pulse Oximeter Pulse Oximetry (%) 98 Oxygen Delivery Method Room Air Intake Visit Reasons: 4 month follow up- needs PHQ9 Allergies No Known Drug Allergies [NO KNOWN DRUG ALLERGIES] Allergy (Unknown, Verified 11/21/23 13:56) NONE Medication List - Last Reconciled 11/21/23 by Elen Gamez MD aspirin (Adult Low Dose Aspirin) 81 mg PO DAILY citalopram 20 mg PO DAILY lisinopril 10 mg PO DAILY omeprazole 40 mg PO DAILY Tobacco use date assessed: 11/21/23 Fall risk assessment: 1 Fall in past year Last assessed Fall Risk: 11/21/23 Dental Screening Dental Screen Date: 11/21/23 Did you have a dental visit in the last 12 months?: No Did you have a dental problem in the last 6 months where you did not have access to dental care?: No Was dental information given to patient?: Patient declined HPI 4 month follow up- needs PHQ9 HPI Details Patient is 83-year-old gentleman Patient is here with his today for his regular follow-up appointment Patient a history of dementia but is stable at this time, 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 He used to be on risperidone but does not need it anymore. Anxiety stable on the citalopram He is recovering from head cold Blood pressure is stable patient is on lisinopril 10 mg GERD is stable with omeprazole 40 mg.? 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 Due for labs, follow-up December Medical History Post-COVID syndrome COVID-19 virus infection Hypertension, essential Benign prostatic hyperplasia Depression, major, recurrent Surgical History History of orthopedic surgery Family History Father Unknown family medical history Mother Unknown family medical history Social History Housing: House Patient Tobacco Use Status: Former Tobacco user Quit Date: 1999 Tobacco use type: Cigarette e-Cigarette/Vaping Use: Never Used service: No Current occupational status: retired Cognitive needs: No Hearing needs: No Vision needs: No Questionnaire Thrive Questionnaire Date Thrive assessed: 05/24/21 AUDIT C Alcohol Use Questionnaire (AUDIT-C) 1. How often do you have a drink containing alcohol?: Monthly or less 2. How many drinks containing alcohol do you have on a typical day when you are drinking?: 1 or 2 3. How often do you have six or more drinks on one occasion?: Never Total Score: 1 Score Reviewed/Action Taken: Yes Review of Systems Const Denies chills and Denies fever(s) ENT Denies epistaxis and Denies nasal discharge Card Denies chest pain Resp Denies chest congestion and Denies hemoptysis GI Denies diarrhea and Denies nausea Skin/Breast Denies rash Neuro Reports no additional complaints Psych Reports no additional complaints Endo Reports no additional complaints Physical exam (Primary Care) Vital Signs: Last Vital Signs Pulse 67 11/21/23 13:56 BP 138/62 11/21/23 13:56 Pulse Ox 98 11/21/23 13:56 Oxygen Delivery Method Room Air 11/21/23 13:56 BMI result Body Mass Index 27.2 Tobacco/Smoking Status: Tobacco use Status Tobacco use date assessed 11/21/23 11/21/23 13:57 Patient Tobacco Use Status Former Tobacco user 11/21/23 13:57 Tobacco use type Cigarette 11/21/23 13:57 e-Cigarette/Vaping Use Never Used 11/21/23 13:57 Thrive Assessment: Date of Thrive Assessment Date Thrive assessed 05/24/21 11/21/23 13:57 Const General: cooperative, comfortable and no acute distress Orientation/consciousness: patient oriented x3 HENLA Head: Yes normocephalic Eyes General: appearance normal, both eyes and all related structures Neck Neck: Yes supple Resp Effort & Inspection: normal respiratory effort, no cough and no stridor Cardio Rhythm: regular rhythm Heart sounds: S1 normal heart sound present and S2 normal heart sound present Skin General skin exam: turgor normal Neuro General: patient oriented x3, tone normal and moves all extremities Extrem Right lower extremity: no edema Left lower extremity: no edema Assessment and Plan Assessment & Plan (1) Hypertension, essential: Code(s): I10 - Essential (primary) hypertension (2) Depression, major, recurrent: Code(s): F33.9 - Major depressive disorder, recurrent, unspecified Qualifiers: Active/Remission status: in partial remission Qualified Code(s): F33.41 - Major depressive disorder, recurrent, in partial remission (3) Benign prostatic hyperplasia: Code(s): N40.0 - Benign prostatic hyperplasia without lower urinary tract symptoms Qualifiers: Lower urinary tract symptom presence: symptoms absent Qualified Code(s): N40.0 - Benign prostatic hyperplasia without lower urinary tract symptoms (4) Dementia: Comment: HE DOES HAVE MEMORY LOSS AND BEHAVIOR DISORDER WHICH IS CONTROLLED, IS ALSO ON CITALOPRAM FOR DEPRESSION. IS MENTAL CAPACITY IS MODERATELY IMPAIRED AT THIS TIME. Code(s): F03.90 - Unspecified dementia, unspecified severity, without behavioral disturbance, psychotic disturbance, mood disturbance, and anxiety Qualifiers: Dementia type: unspecified type Dementia severity: mild Dementia behavioral or psychological symptom: with other behavioral disturbance Qualified Code(s): F03.A18 - Unspecified dementia, mild, with other behavioral disturbance (5) Nephropathy: Code(s): N28.9 - Disorder of kidney and ureter, unspecified (6) Chronic GERD: Code(s): K21.9 - Gastro-esophageal reflux disease without esophagitis Plan atient is 83-year-old gentleman Patient is here with his today for his regular follow-up appointment Patient a history of dementia but is stable at this time, 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 He used to be on risperidone but does not need it anymore. Patient is slightly anemic with microcytic indices I have sent iron supplement is to start taking 1 every day notified that iron might cause constipation. If that happens then he will need medication for constipation. Anxiety stable on the citalopram He is recovering from head cold Blood pressure is stable patient is on lisinopril 10 mg Benign prostatic hypertrophy stable GERD is stable with omeprazole 40 mg.? 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 Due for labs, follow-up December Orders: Orders Complete Blood Count Auto Diff Today F03.90 - Unspecified dementia, unspecified severity, without behavioral disturbance, psychotic disturbance, mood disturbance, and anxiety, F33.9 - Major depressive disorder, recurrent, unspecified, I10 - Essential (primary) hypertension, K21.9 - Gastro-esophageal reflux disease without esophagitis, N28.9 - Disorder of kidney and ureter, unspecified, N40.0 - Benign prostatic hyperplasia without lower urinary tract symptoms LDL Cholesterol Direct Today F03.90 - Unspecified dementia, unspecified severity, without behavioral disturbance, psychotic disturbance, mood disturbance, and anxiety, F33.9 - Major depressive disorder, recurrent, unspecified, I10 - Essential (primary) hypertension, K21.9 - Gastro-esophageal reflux disease without esophagitis, N28.9 - Disorder of kidney and ureter, unspecified, N40.0 - Benign prostatic hyperplasia without lower urinary tract symptoms Vitamin B12 Today F03.90 - Unspecified dementia, unspecified severity, without behavioral disturbance, psychotic disturbance, mood disturbance, and anxiety, F33.9 - Major depressive disorder, recurrent, unspecified, I10 - Essential (prim libia) hypertension, K21.9 - Gastro-esophageal reflux disease without esophagitis, N28.9 - Disorder of kidney and ureter, unspecified, N40.0 - Benign prostatic hyperplasia without lower urinary tract symptoms Ferritin Today F03.90 - Unspecified dementia, unspecified severity, without behavioral disturbance, psychotic disturbance, mood disturbance, and anxiety, F33.9 - Major depressive disorder, recurrent, unspecified, I10 - Essential (primary) hypertension, K21.9 - Gastro-esophageal reflux disease without esophagitis, N28.9 - Disorder of kidney and ureter, unspecified, N40.0 - Benign prostatic hyperplasia without lower urinary tract symptoms Comprehensive Met. Panel Today F03.90 - Unspecified dementia, unspecified severity, without behavioral disturbance, psychotic disturbance, mood disturbance, and anxiety, F33.9 - Major depressive disorder, recurrent, unspecified, I10 - Essential (primary) hypertension, K21.9 - Gastro-esophageal reflux disease without esophagitis, N28.9 - Disorder of kidney and ureter, unspecified, N40.0 - Benign prostatic hyperplasia without lower urinary tract symptoms Vitamin D 25-OH (D2 and D3) Today F03.90 - Unspecified dementia, unspecified severity, without behavioral disturbance, psychotic disturbance, mood disturbance, and anxiety, F33.9 - Major depressive disorder, recurrent, unspecified, I10 - Essential (primary) hypertension, K21.9 - Gastro-esophageal reflux disease without esophagitis, N28.9 - Disorder of kidney and ureter, unspecified, N40.0 - Benign prostatic hyperplasia without lower urinary tract symptoms Medications: New ferrous sulfate Do not take it with milk products 324 mg PO ONCE 90 days 90 tabs 0RF Changed From lisinopril 10 mg PO DAILY 90 tabs 1RF To lisinopril 20 mg PO DAILY 90 tabs 1RF Coding Level of Care Code Est Pt Level 4 (72958) Diagnoses Hypertension, essential I10 Recurrent major depressive disorder, in partial remission F33.41 Active/Remission status: in partial remission Benign prostatic hyperplasia without lower urinary tract symptoms N40.0 Lower urinary tract symptom presence: symptoms absent Mild dementia with other behavioral disturbance, unspecified dementia type F03.A18 Dementia type: unspecified type Dementia severity: mild Dementia behavioral or psychological symptom: with other behavioral disturbance Nephropathy N28.9 Chronic GERD K21.9
[2023-11-21 13:56] VITALS: BP 138/62; PULSE 67; O2SAT 98; BMI 27.2
== END 2023-11-21 14:46 | disposition home or self-care (01) ==
LOC: HO.HMGC 13:44
PROVIDERS: PCP Internal Medicine; Visit Provider Internal Medicine
DX: I10 Essential (primary) hypertension (principal); F33.41 Major depressive disorder, recurrent, in partial remission; N40.0 Benign prostatic hyperplasia without lower urinary tract symptoms; F03.A18 Unspecified dementia, mild, with other behavioral disturbance; N28.9 Disorder of kidney and ureter, unspecified; K21.9 Gastro-esophageal reflux disease without esophagitis
CPT/HCPCS: 99214

== ENCOUNTER 2024-03-13 08:35 | Outpatient (AMB) | payer MEDICARE, OTHER, SELFPAY ==
--- NOTE | 2024-03-13 08:47 | A.OFFPC_ITS ---
Intake Visit Reasons: per ak Allergies No Known Drug Allergies [NO KNOWN DRUG ALLERGIES] Allergy (Unknown, Verified 11/21/23 13:56) NONE Medication List - Last Reconciled 03/13/24 by Elen Gamez MD aspirin (Adult Low Dose Aspirin) 81 mg PO DAILY citalopram 20 mg PO DAILY ferrous sulfate 324 mg PO ONCE 90 days lisinopril 20 mg PO DAILY omeprazole 40 mg PO DAILY Tobacco use date assessed: 11/21/23 Dental Screening Dental Screen Date: 11/21/23 HPI per ak HPI Details Patient is 84-year-old gentleman this is a telemed visit tells me that he has been more SOB lately and has been coughing at night as well appetite is ok and there is no N/V or diarrhea no fever or chills that she has noticed Patient a history of dementia but is stable at this time, 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 He used to be on risperidone but does not need it anymore. Patient is slightly anemic with microcytic indices he is on iron supplement, and is due for labs due to his SOB and cough I have also ordered CXR and sent Z pack Anxiety stable on the citalopram Attention: Patient is on lisinopril 10 mg and is tolerating Benign prostatic hypertrophy stable GERD is stable with omeprazole 40 mg.? 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 We will book follow-up appointment next week to go over the labs and to see how he is doing with shortness of breath is aware that if patient continued to feel worse she is to take him to emergency room [facility] Medical History Post-COVID syndrome COVID-19 virus infection Hypertension, essential Benign prostatic hyperplasia Depression, major, recurrent Surgical History History of orthopedic surgery Family History Father Unknown family medical history Mother Unknown family medical history Social History Housing: House Patient Tobacco Use Status: Former Tobacco user Quit Date: 1999 Tobacco use type: Cigarette e-Cigarette/Vaping Use: Never Used service: No Current occupational status: retired Cognitive needs: No Hearing needs: No Vision needs: No Questionnaire Thrive Questionnaire Date Thrive assessed: 05/24/21 Review of Systems Const Denies chills and Denies fever(s) ENT Denies epistaxis and Denies nasal discharge Card Denies chest pain Resp Denies chest congestion and Denies hemoptysis GI Denies diarrhea and Denies nausea Skin/Breast Denies rash Neuro Reports no additional complaints Psych Reports no additional complaints Endo Reports no additional complaints Physical exam (Primary Care) Tobacco/Smoking Status: Tobacco use Status Tobacco use date assessed 11/21/23 03/13/24 08:48 Patient Tobacco Use Status Former Tobacco user 03/13/24 08:48 Tobacco use type Cigarette 03/13/24 08:48 e-Cigarette/Vaping Use Never Used 03/13/24 08:48 Thrive Assessment: Date of Thrive Assessment Date Thrive assessed 05/24/21 03/13/24 08:48 Telehealth Telehealth Telehealth Platform: [employer] Location of provider rendering services: practice address Location of patient: address on file Patient Identification confirmed using: Name, : Yes Telehealth method: voice only Patient verbally consented to treatment: Yes Patient verbally consented to billing insurance company: Yes Patient informed of any privacy concerns related to visit: Yes Minutes spent on Phone/Video with Pt.: 16 Assessment and Plan Assessment & Plan (1) Shortness of breath: Code(s): R06.02 - Shortness of breath (2) Cough: Code(s): R05.9 - Cough, unspecified Qualifiers: Cough type: acute Qualified Code(s): R05.1 - Acute cough (3) Hypertension, essential: Code(s): I10 - Essential (primary) hypertension (4) Depression, major, recurrent: Code(s): F33.9 - Major depressive disorder, recurrent, unspecified Qualifiers: Active/Remission status: in partial remission Qualified Code(s): F33.41 - Major depressive disorder, recurrent, in partial remission (5) Benign prostatic hyperplasia: Code(s): N40.0 - Benign prostatic hyperplasia without lower urinary tract symptoms Qualifiers: Lower urinary tract symptom presence: symptoms absent Qualified Code(s): N40.0 - Benign prostatic hyperplasia without lower urinary tract symptoms (6) Dementia: Comment: HE DOES HAVE MEMORY LOSS AND BEHAVIOR DISORDER WHICH IS CONTROLLED, IS ALSO ON CITALOPRAM FOR DEPRESSION. IS MENTAL CAPACITY IS MODERATELY IMPAIRED AT THIS TIME. Code(s): F03.90 - Unspecified dementia, unspecified severity, without behavioral disturbance, psychotic disturbance, mood disturbance, and anxiety Qualifiers: Dementia type: unspecified type Dementia severity: mild Dementia behavioral or psychological symptom: with other behavioral disturbance Qualified Code(s): F03.A18 - Unspecified dementia, mild, with other behavioral disturbance (7) Nephropathy: Code(s): N28.9 - Disorder of kidney and ureter, unspecified (8) Chronic GERD: Code(s): K21.9 - Gastro-esophageal reflux disease without esophagitis Plan Patient is 84-year-old gentleman this is a telemed visit tells me that he has been more SOB lately and has been coughing at night as well appetite is ok and there is no N/V or diarrhea no fever or chills that she has noticed Patient a history of dementia but is stable at this time, 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 He used to be on risperidone but does not need it anymore. Patient is slightly anemic with microcytic indices he is on iron supplement, and is due for labs due to his SOB and cough I have also ordered CXR and sent Z pack Anxiety stable on the citalopram Attention: Patient is on lisinopril 10 mg and is tolerating Benign prostatic hypertrophy stable GERD is stable with omeprazole 40 mg.? 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 We will book follow-up appointment next week to go over the labs and to see how he is doing with shortness of breath is aware that if patient continued to feel worse she is to take him to emergency room Orders: Orders XR chest 2V Today R05.9 - Cough, unspecified, R06.02 - Shortness of breath Medications: New azithromycin Take 2 tablets today then 1 daily 250 mg PO ONCE 6 tabs 0RF 5 days J06.9 - Acute upper respiratory infection, unspecified Refilled ferrous sulfate Do not take it with milk products 324 mg PO ONCE 90 tabs 0RF 90 days Coding Level of Care Code Tele Est Pt Level 4 (25549) Complex EM visit Add On G2211 Diagnoses Shortness of breath R06.02 Acute cough R05.1 Cough type: acute Hypertension, essential I10 Recurrent major depressive disorder, in partial remission F33.41 Active/Remission status: in partial remission Benign prostatic hyperplasia without lower urinary tract symptoms N40.0 Lower urinary tract symptom presence: symptoms absent Mild dementia with other behavioral disturbance, unspecified dementia type F03.A18 Dementia type: unspecified type Dementia severity: mild Dementia behavioral or psychological symptom: with other behavioral disturbance Nephropathy N28.9 Chronic GERD K21.9
== END 2024-03-13 09:50 | disposition home or self-care (01) ==
LOC: HO.HMGC 08:35
PROVIDERS: PCP Internal Medicine; Visit Provider Internal Medicine
DX: R06.02 Shortness of breath (principal); F33.41 Major depressive disorder, recurrent, in partial remission; F03.A18 Unspecified dementia, mild, with other behavioral disturbance; R05.1 Acute cough; I10 Essential (primary) hypertension; N40.0 Benign prostatic hyperplasia without lower urinary tract symptoms; N28.9 Disorder of kidney and ureter, unspecified; K21.9 Gastro-esophageal reflux disease without esophagitis
CPT/HCPCS: 99443

== ENCOUNTER 2024-03-18 09:44 | Outpatient (REF) | payer MEDICARE, OTHER, SELFPAY ==
--- NOTE | ~2024-03-18 | XR_ITS ---
EXAMINATION: XR CHEST CLINICAL INFORMATION: Shortness of breath COMPARISON: 01/06/2019 TECHNIQUE: 2 views of the chest were obtained. FINDINGS: Moderate-sized hiatal hernia is present. Some mild degenerative changes are present in the spine. No other significant abnormality is noted involving the heart, lungs, mediastinum, bony thorax or soft tissues. XR/XR chest 2V IMPRESSION: No acute intrathoracic disease. Moderate-sized hiatal hernia.
[2024-03-18 13:10] LABS: MANUAL DIFF FLAG NO
[2024-03-18 13:33] LABS: Basophils Percent Auto 0.6 % (0-2); Eosinophils Absolute Auto 0.2 X10*3/uL (0.0-0.4); Eosinophils Percent Auto 3.7 % (0-4); Hematocrit 41.5 % (42.0-52.0); Hemoglobin 13.5 g/dl (14.0-18.0); Imm Gran Abs Auto 0.03 X10*3/uL (0.00-0.03); Imm Gran Pct Auto 0.6 % (0.0-0.4); Lymphocytes Absolute Auto 1.7 X10*3/uL (1.2-4.9); Mean Corpuscular HGB Conc 32.5 g/dl (31.0-36.0); Mean Corpuscular Hemoglobin 26.3 pg (27.0-33.0); Mean Corpuscular Volume 80.9 fL (80.0-98.0); Mean Platelet Volume 11.6 fL (9.4-12.4); Monocytes Absolute Auto 0.4 X10*3/uL (0.1-1.2); Monocytes Percent Auto 6.8 % (2-11); Neutrophils Absolute Auto 2.9 x10*3/uL (2.0-8.3); Neutrophils Percent Auto 56.3 % (45-73); Platelet Count 195 X10*3/uL (160-400); Red Blood Count 5.13 X10*6/uL (4.60-5.80); Red Cell Distribution Width 14.8 % (11.0-16.0); White Blood Count 5.2 X10*3/uL (4.8-10.8)
[2024-03-18 14:04] LABS: Alanine Aminotransferase 13 U/L (0-40); Albumin Level 4.4 g/dL (3.5-5.0); Alkaline Phosphatase 89 U/L (39-117); Anion Gap 15 (12-20); Aspartate Amino Transferase 15 U/L (5-37); Bilirubin Total 0.4 mg/dL (0.0-1.0); Blood Urea Nitrogen 13 mg/dL (9-16); Calcium 9.1 mg/dL (8.4-10.2); Carbon Dioxide 24 mmol/L (22-29); Chloride 105 mmol/L (96-108); Estimated Glomerular Filt Rate 57; Glucose Random 94 mg/dL (60-115); Sodium 140 mmol/L (135-145); Total Protein 7.4 g/dL (6.5-8.0)
[2024-03-18 14:12] LABS: Ferritin 33 ng/mL (20-250)
[2024-03-18 14:14] LABS: Vitamin B12 281 pg/mL (200-900)
[2024-03-19 09:14] LABS: LDL Cholesterol Direct 93 mg/dL (<100)
[2024-03-22 16:08] LABS: Vitamin D 25-OH, D2 <4 ng/mL; Vitamin D 25-OH, D3 11 ng/mL; Vitamin D 25-OH, Total 11 ng/mL (30-100)
== END 2024-03-18 09:45 | disposition home or self-care (01) ==
LOC: HO.HMGCX 09:44
PROVIDERS: PCP Internal Medicine; Visit Provider Internal Medicine
DX: R06.02 Shortness of breath (principal); R05.9 Cough, unspecified; I10 Essential (primary) hypertension; F33.9 Major depressive disorder, recurrent, unspecified; N40.0 Benign prostatic hyperplasia without lower urinary tract symptoms; F03.90 Unspecified dementia, unspecified severity, without behavioral disturbance, psychotic disturbance, mood disturbance, and anxiety; N28.9 Disorder of kidney and ureter, unspecified; K21.9 Gastro-esophageal reflux disease without esophagitis
CPT/HCPCS: 36415; 71046; 80053; 82306; 82607; 82728; 83721; 85025

== ENCOUNTER 2024-03-20 07:01 | Outpatient (AMB) | payer MEDICARE, OTHER, SELFPAY ==
--- NOTE | 2024-03-20 08:27 | MHC.PC.OV ---
Intake Visit Reasons: 1 Wk F/u~ [phone] Allergies No Known Drug Allergies [NO KNOWN DRUG ALLERGIES] Allergy (Unknown, Verified 11/21/23 13:56) NONE Medication List - Last Reconciled 03/20/24 by Elen Gamez MD aspirin (Adult Low Dose Aspirin) 81 mg PO DAILY azithromycin 250 mg PO ONCE 5 days citalopram 20 mg PO DAILY cyanocobalamin (vitamin B-12) 1,000 mcg PO DAILY 90 days ferrous sulfate 324 mg PO ONCE 90 days lisinopril 20 mg PO DAILY omeprazole 40 mg PO DAILY Tobacco use date assessed: 11/21/23 Dental Screening Dental Screen Date: 11/21/23 HPI 1 Wk F/u~ [phone] HPI Details One-week follow-up telemedicine Labs were reviewed with patient and says that she was not aware that patient have dementia Went over the notes from past 3 years and I read some of them to Patient has seen Dr. Conteh in 2020, I could not locate the consultation but we will request that from the office Meanwhile patient is feeling better as far as his coughing and shortness of breath is concerned His chest x-ray came back within normal limit, however he has a hiatal hernia He is taking omeprazole 40 mg which is helping him Labs showed low vitamin B12 level, for that supplement was sent patient has started taking 1 every day is requesting a script for risperidone that patient was taking a year ago as needed for agitation Script sent. Nephropathy: His kidney functions has improved from before Patient continued to be slightly anemic but stable [facility] Medical History Post-COVID syndrome COVID-19 virus infection Hypertension, essential Benign prostatic hyperplasia Depression, major, recurrent Surgical History History of orthopedic surgery Family History Father Unknown family medical history Mother Unknown family medical history Social History Housing: House Patient Tobacco Use Status: Former Tobacco user Quit Date: 1999 Tobacco use type: Cigarette e-Cigarette/Vaping Use: Never Used service: No Current occupational status: retired Cognitive needs: No Hearing needs: No Vision needs: No Questionnaire Thrive Questionnaire Date Thrive assessed: 05/24/21 Review of Systems Const Denies chills and Denies fever(s) ENT Denies epistaxis and Denies nasal discharge Card Denies chest pain Resp Denies chest congestion and Denies hemoptysis GI Denies diarrhea and Denies nausea Skin/Breast Denies rash Neuro Reports no additional complaints Psych Reports no additional complaints Endo Reports no additional complaints Physical exam (Primary Care) Tobacco/Smoking Status: Tobacco use Status Tobacco use date assessed 11/21/23 03/20/24 08:27 Patient Tobacco Use Status Former Tobacco user 03/20/24 08:27 Tobacco use type Cigarette 03/20/24 08:27 e-Cigarette/Vaping Use Never Used 03/20/24 08:27 Thrive Assessment: Date of Thrive Assessment Date Thrive assessed 05/24/21 03/20/24 08:27 Telehealth Telehealth Telehealth Platform: [employer] Location of provider rendering services: practice address Location of patient: address on file Patient Identification confirmed using: Name, : Yes Telehealth method: voice only Patient verbally consented to treatment: Yes Patient verbally consented to billing insurance company: Yes Patient informed of any privacy concerns related to visit: Yes Assessment and Plan Assessment & Plan (1) Agitation due to dementia: Code(s): F03.911 - Unspecified dementia, unspecified severity, with agitation (2) Depression, major, recurrent: Code(s): F33.9 - Major depressive disorder, recurrent, unspecified Qualifiers: Active/Remission status: in partial remission Qualified Code(s): F33.41 - Major depressive disorder, recurrent, in partial remission (3) Dementia: Comment: HE DOES HAVE MEMORY LOSS AND BEHAVIOR DISORDER WHICH IS CONTROLLED, IS ALSO ON CITALOPRAM FOR DEPRESSION. IS MENTAL CAPACITY IS MODERATELY IMPAIRED AT THIS TIME. Code(s): F03.90 - Unspecified dementia, unspecified severity, without behavioral disturbance, psychotic disturbance, mood disturbance, and anxiety Qualifiers: Dementia behavioral or psychological symptom: with other behavioral disturbance Dementia severity: mild Dementia type: unspecified type Qualified Code(s): F03.A18 - Unspecified dementia, mild, with other behavioral disturbance (4) Nephropathy: Code(s): N28.9 - Disorder of kidney and ureter, unspecified (5) Chronic GERD: Code(s): K21.9 - Gastro-esophageal reflux disease without esophagitis (6) Anemia: Code(s): D64.9 - Anemia, unspecified Qualifiers: Anemia type: due to chronic kidney disease Chronic kidney disease stage 3 subtype: stage 3a (GFR 45-59) Plan One-week follow-up telemedicine Labs were reviewed with patient and says that she was not aware that patient have dementia Went over the notes from past 3 years and I read some of them to Patient has seen Dr. Conteh in 2020, I could not locate the consultation but we will request that from the office Meanwhile patient is feeling better as far as his coughing and shortness of breath is concerned His chest x-ray came back within normal limit, however he has a hiatal hernia He is taking omeprazole 40 mg which is helping him Labs showed low vitamin B12 level, for that supplement was sent patient has started taking 1 every day is requesting a script for risperidone that patient was taking a year ago as needed for agitation Script sent. Nephropathy: His kidney functions has improved from before Patient continued to be slightly anemic but stable Medications: New risperidone (Risperdal) 0.5 mg PO BEDTIME 30 tabs 0RF For agitation Coding Level of Care Code Tele Est Pt Level 4 (46585) Diagnoses Agitation due to dementia F03.911 Recurrent major depressive disorder, in partial remission F33.41 Active/Remission status: in partial remission Mild dementia with other behavioral disturbance, unspecified dementia type F03.A18 Dementia behavioral or psychological symptom: with other behavioral disturbance Dementia severity: mild Dementia type: unspecified type Nephropathy N28.9 Chronic GERD K21.9 Anemia D64.9 Anemia type: due to chronic kidney disease Chronic kidney disease stage 3 subtype: stage 3a (GFR 45-59) Comment 30 min, discussion, charting, meds, coordination of care
== END 2024-03-20 11:37 | disposition home or self-care (01) ==
LOC: HO.HMGC 07:01
PROVIDERS: PCP Internal Medicine; Visit Provider Internal Medicine
DX: K21.9 Gastro-esophageal reflux disease without esophagitis (principal); F03.911 Unspecified dementia, unspecified severity, with agitation; F33.41 Major depressive disorder, recurrent, in partial remission; F03.A18 Unspecified dementia, mild, with other behavioral disturbance; N28.9 Disorder of kidney and ureter, unspecified; D64.9 Anemia, unspecified
CPT/HCPCS: 99443

== ENCOUNTER 2024-06-25 09:37 | Outpatient (AMB) | payer MEDICARE, OTHER, SELFPAY ==
[2024-06-25 09:41] VITALS: BP 128/70; PULSE 57; O2SAT 97; BMI 27.6
--- NOTE | 2024-06-25 09:41 | A.OFFPC_ITS ---
Vital Signs 06/25/24 09:41 Height 5 ft 6 in Weight 171 lb BMI 27.6 BP 128/70 Blood Pressure Location Rt brachial Position Sitting Pulse 57 Pulse Source Pulse Oximeter Pulse Oximetry (%) 97 Oxygen Delivery Method Room Air Intake Visit Reasons: weakness Allergies No Known Drug Allergies [NO KNOWN DRUG ALLERGIES] Allergy (Unknown, Verified 06/25/24 09:41) NONE Medication List - Last Reconciled 06/25/24 by Elen Gamez MD aspirin (Adult Low Dose Aspirin) 81 mg PO DAILY citalopram 20 mg PO DAILY cyanocobalamin (vitamin B-12) 1,000 mcg PO DAILY 90 days ferrous sulfate 324 mg PO ONCE 90 days lisinopril 20 mg PO DAILY omeprazole 40 mg PO DAILY risperidone (Risperdal) 0.5 mg PO BEDTIME Tobacco use date assessed: 06/25/24 Fall risk assessment: No Falls in past year Last assessed Fall Risk: 06/25/24 Dental Screening Dental Screen Date: 06/25/24 Did you have a dental visit in the last 12 months?: No Did you have a dental problem in the last 6 months where you did not have access to dental care?: No Was dental information given to patient?: Patient has dentist HPI weakness HPI0 Details Patient is 84-year-old gentleman who is usually very active Came in today with his , patient is feeling weak for the past 4 or 5 days He also have some chest congestion and mild cough Appetite is stable Feeling tired which is unusual for the patient No fever no chills no nausea no vomiting abdominal pain Patient is a poor historian Even though he tells me he has no urinary complaint we did the UA and he may to make sure he does not have bladder infection As patient has benign prostatic hypertrophy Urine did not show any signs of infection EKG was done as well which showed bradycardia 48 beats per minute in 2020 he bradycardia but his heart rate was 58 He needs to be evaluated by Cardiology, referral placed, at this time patient does not have any cardiac symptoms other than just feeling weak Lab order placed to be done today COVID RSV and flu test taken Further management after the reports [facility] Medical History Post-COVID syndrome COVID-19 virus infection Hypertension, essential Benign prostatic hyperplasia Depression, major, recurrent Surgical History History of orthopedic surgery Family History Father Unknown family medical history Mother Unknown family medical history Social History Housing: House Patient Tobacco Use Status: Former Tobacco user Tobacco use type: Cigarette e-Cigarette/Vaping Use: Never Used service: No Current occupational status: retired Cognitive needs: No Hearing needs: No Vision needs: No Questionnaire PHQ-9 Over the last 2 weeks, how often have you been bothered by any of the following problems? 1. Little interest or pleasure in doing things: not at all 2. Feeling down, depressed, or hopeless: not at all 3. Trouble falling or staying asleep, or sleeping too much: not at all 4. Feeling tired or having little energy: not at all 5. Poor appetite or overeating: not at all 6. Feeling bad about yourself - or that you are a failure or have let yourself or your family down: not at all 7. Trouble concentrating on things, such as reading the newspaper or watching television: not at all 8. Moving or speaking so slowly that other people could have noticed. Or the opposite - being so fidgety or restless that you have been moving around a lot more than usual: not at all 9. Thoughts that you would be better off or of hurting yourself in some way: not at all Total score: 0 Depression Screening Interpretation: Negative Depression Screening Done: Yes 11856 - PHQ-9 Billing: Yes Source: Developed by Drs. Eric Watson, Starr Cortes, Gildardo Rome and colleagues, with an educational zaria from [employer]. Thrive Questionnaire Date Thrive assessed: 06/25/24 I am a: Patient What is your living situation today?: I have a steady place to live Within the past 12 months, did the food you bought not last and you didn't have the money to get more?: Never true Within the past 12 months, did you worry whether your food would run out before you got money to buy more?: Never true Do you have trouble paying for medicines?: No Do you have trouble getting transportation to medical appointments?: No Do you have trouble paying your heating and electricity bill?: No Do you have trouble taking care of your child, family member or friend?: No Do you have trouble with day-to-day activities such as bathing, preparing meals, shopping, managing finances, etc.?: No Are you currently unemployed and looking for a job?: No Are you interested in more education?: No Please select the resources that you would like help with: None Currently or been in a relationship where the following occur: No concerns reported THRIVE Score: 0 AUDIT C Alcohol Use Questionnaire (AUDIT-C) 1. How often do you have a drink containing alcohol?: Monthly or less 2. How many drinks containing alcohol do you have on a typical day when you are drinking?: 1 or 2 3. How often do you have six or more drinks on one occasion?: Never Total Score: 1 Score Reviewed/Action Taken: Yes BENJAMIN-7 AMB Questionnaire BENJAMIN-7 Date BENJAMIN - 7 assessed: 06/25/24 Feeling nervous, anxious, or on edge: 0 = Not at all Not being able to stop or control worryin = Not at all Worrying too much about different things: 0 = Not at all Trouble relaxin = Not at all Being so restless that it is hard to sit still: 0 = Not at all Becoming easily annoyed or irritable: 0 = Not at all Feeling afraid as if something awful might happen: 0 = Not at all Total BENJAMIN-7 score (0-4 normal; 5-9 mild; 10-14 moderate; 15-21 severe): 0 Source: Developed by Drs. Eric Watson, Starr Cortes, Gildardo Rome and colleagues, with an educational zaria from [employer]. BENJAMIN-7 Assessment Billing BENJAMIN-7 Assessment Tool: BENJAMIN-7 Assessment 49315 Review of Systems ENT Denies epistaxis and Denies nasal discharge Card Denies chest pain Resp Denies hemoptysis GI Denies diarrhea and Denies nausea Skin/Breast Denies rash Neuro Reports no additional complaints Psych Reports no additional complaints Endo Reports no additional complaints Physical exam (Primary Care) Vital Signs: Last Vital Signs Pulse 57 06/25/24 09:41 BP 128/70 06/25/24 09:41 Pulse Ox 97 06/25/24 09:41 Oxygen Delivery Method Room Air 06/25/24 09:41 BMI result Body Mass Index 27.6 Tobacco/Smoking Status: Tobacco use Status Tobacco use date assessed 06/25/24 06/25/24 09:43 Patient Tobacco Use Status Former Tobacco user 06/25/24 09:43 Tobacco use type Cigarette 06/25/24 09:43 e-Cigarette/Vaping Use Never Used 06/25/24 09:43 PHQ-9: PHQ-9 Score PHQ-9: Total score 0 06/25/24 10:39 Depression Screening Interpretation: Negative Thrive Assessment: Date of Thrive Assessment Date Thrive assessed 06/25/24 06/25/24 09:43 Currently or been in a relationship where the following occur: No concerns reported Const General: cooperative, comfortable and no acute distress Orientation/consciousness: patient oriented x3 HENMT Head: Yes normocephalic Eyes General: appearance normal, both eyes and all related structures Neck Neck: Yes supple Resp Effort & Inspection: normal respiratory effort, no cough and no stridor Cardio Rhythm: regular rhythm Heart sounds: S1 normal heart sound present and S2 normal heart sound present Skin General skin exam: turgor normal Neuro General: patient oriented x3, tone normal and moves all extremities Extrem Right lower extremity: no edema Left lower extremity: no edema Results AMB Urinalysis, Automated UA Leukoctes 0 Edenilson/uL Last Edit by Hunter Rangel CMA on 06/25/24 11:21 UA Nitrite Negative Last Edit by Hunter Rangel CMA on 06/25/24 11:21 UA Urobilinogen 0.2 mg/dL Last Edit by Hunter Rangel CMA on 06/25/24 11 :21 UA Protein 0 mg/dL Last Edit by Hunter Rangel CMA on 06/25/24 11:21 UA pH 5.5 Last Edit by Hunter Rangel CMA on 06/25/24 11:21 UA Blood 0 Loco/uL Last Edit by Hunter Rangel CMA on 06/25/24 11:21 UA Specific [facility] [place] 1.010 Last Edit by Hunter Rangel CMA on 06/25/24 11:21 UA Ketone Negative Last Edit by Hunter Rangel CMA on 06/25/24 11:21 UA Bilirubin 0 mg/dL Last Edit by Hunter Rangel CMA on 06/25/24 11:21 UA Glucose 0 mg/dL Last Edit by Hunter Rangel CMA on 06/25/24 11:21 Results Reviewed Results Reviewed: Laboratory Last Values Urine pH (Auto) 5.5 06/25/24 11:20 Specific [facility] [place] (Auto) 1.010 06/25/24 11:20 Urine Protein (Auto) 0 mg/dL 06/25/24 11:20 Glucose (UA)(Auto) 0 mg/dL 06/25/24 11:20 Urine Ketones (Auto) Negative 06/25/24 11:20 Urine Blood (Auto) 0 Loco/uL 06/25/24 11:20 Urine Nitrite (Auto) Negative 06/25/24 11:20 Urine Bilirubin (Auto) 0 mg/dL 06/25/24 11:20 Urine Urobilinogen (Auto) 0.2 mg/dL 06/25/24 11:20 Leukocyte Esterase (Auto) 0 Edenilson/uL 06/25/24 11:20 Assessment and Plan Assessment & Plan (1) Weakness: Code(s): R53.1 - Weakness (2) Bradycardia: Code(s): R00.1 - Bradycardia, unspecified (3) Chest congestion: Code(s): R09.89 - Other specified symptoms and signs involving the circulatory and respiratory systems (4) Feeling unwell: Code(s): R68.89 - Other general symptoms and signs (5) Dementia: Code(s): F03.90 - Unspecified dementia, unspecified severity, without behavioral distu rbance, psychotic disturbance, mood disturbance, and anxiety Qualifiers: Dementia behavioral or psychological symptom: with agitation Dementia severity: mild Dementia type: unspecified type Qualified Code(s): F03.A11 - Unspecified dementia, mild, with agitation (6) Hypertension, essential: Code(s): I10 - Essential (primary) hypertension (7) Benign prostatic hyperplasia: Code(s): N40.0 - Benign prostatic hyperplasia without lower urinary tract symptoms Qualifiers: Lower urinary tract symptom presence: symptoms absent Qualified Code(s): N40.0 - Benign prostatic hyperplasia without lower urinary tract symptoms (8) Depression, major, recurrent: Code(s): F33.9 - Major depressive disorder, recurrent, unspecified Qualifiers: Active/Remission status: in partial remission Qualified Code(s): F33.41 - Major depressive disorder, recurrent, in partial remission Plan Patient is 84-year-old gentleman who is usually very active Came in today with his , patient is feeling weak for the past 4 or 5 days He also have some chest congestion and mild cough Appetite is stable Feeling tired which is unusual for the patient No fever no chills no nausea no vomiting abdominal pain Patient is a poor historian Even though he tells me he has no urinary complaint we did the UA and he may to make sure he does not have bladder infection As patient has benign prostatic hypertrophy Urine did not show any signs of infection EKG was done as well which showed bradycardia 48 beats per minute in 2020 he bradycardia but his heart rate was 58 He needs to be evaluated by Cardiology, referral placed, at this time patient does not have any cardiac symptoms other than just feeling weak Lab order placed to be done today COVID RSV and flu test taken Further management after the reports 46 minutes spent in care of this patient Orders: Orders SARS-CoV2/FLU/RSV Today R09.89 - Other specified symptoms and signs involving the circulatory and respiratory systems Comprehensive Met. Panel Today R09.89 - Other specified symptoms and signs involving the circulatory and respiratory systems, R53.1 - Weakness XR chest 2V Today R09.89 - Other specified symptoms and signs involving the circulatory and respiratory systems, R53.1 - Weakness Complete Blood Count Auto Diff Today R09.89 - Other specified symptoms and signs involving the circulatory and respiratory systems, R53.1 - Weakness AMB Urinalysis Automated Today Z13.9 - Encounter for screening, unspecified Referrals Cardiology Referral R00.1 - Bradycardia, unspecified Coding Level of Care Code Est Pt Level 5 (05769) Diagnoses Weakness R53.1 Bradycardia R00.1 Chest congestion R09.89 Feeling unwell R68.89 Mild dementia with agitation, unspecified dementia type F03.A11 Dementia behavioral or psychological symptom: with agitation Dementia severity: mild Dementia type: unspecified type Hypertension, essential I10 Benign prostatic hyperplasia without lower urinary tract symptoms N40.0 Lower urinary tract symptom presence: symptoms absent Recurrent major depressive disorder, in partial remission F33.41 Active/Remission status: in partial remission Additional Codes BENJAMIN-7 Assessment Billing - BENJAMIN-7 Assessment Tool: BENJAMIN-7 Assessment 84272 ([id number])
== END 2024-06-25 10:44 | disposition home or self-care (01) ==
PROVIDERS: PCP Internal Medicine; Visit Provider Internal Medicine
DX: R53.1 Weakness (principal); R00.1 Bradycardia, unspecified; R09.89 Other specified symptoms and signs involving the circulatory and respiratory systems; R68.89 Other general symptoms and signs; F03.A11 Unspecified dementia, mild, with agitation; I10 Essential (primary) hypertension; N40.0 Benign prostatic hyperplasia without lower urinary tract symptoms; F33.41 Major depressive disorder, recurrent, in partial remission; Z13.9 Encounter for screening, unspecified
CPT/HCPCS: 81003; 96127; 99215

== ENCOUNTER 2024-06-25 10:40 | Outpatient (REF) | payer MEDICARE, BC, SELFPAY ==
--- NOTE | ~2024-06-25 | XR_ITS ---
EXAMINATION: XR CHEST CLINICAL INFORMATION: Weakness. COMPARISON: 03/18/2024 TECHNIQUE: 2 views of the chest were obtained. FINDINGS: Redemonstration of retrocardiac air-fluid level, previously demonstrated to represent a hernia on CT scan of the chest of February 27, 2021. There is no gross pneumothorax. Cardiac silhouette is borderline enlarged. Low lung volumes. No pleural effusion. Degenerative changes in the thoracic spine. Mild streaky opacities at the left lung base may represent atelectasis, although an infectious/inflammatory process should also be considered in the appropriate clinical setting. XR/XR chest 2V IMPRESSION: 1. Mild streaky opacities at the left lung base may represent atelectasis, although an infectious/inflammatory process should also be considered in the appropriate clinical setting. 2. Redemonstration of retrocardiac air-fluid level, previously demonstrated to represent a hiatal hernia on CT scan of the chest of February 27, 2021. Electronically signed by: Masha Craig MD 07/22/2024 10:41 AM EDT
[2024-06-25 13:16] LABS: MANUAL DIFF FLAG NO
[2024-06-25 13:49] LABS: Basophils Percent Auto 0.5 % (0-2); Eosinophils Absolute Auto 0.2 X10*3/uL (0.0-0.4); Eosinophils Percent Auto 3.4 % (0-4); Hematocrit 39.6 % (42.0-52.0); Hemoglobin 13.3 g/dl (14.0-18.0); Imm Gran Abs Auto 0.02 X10*3/uL (0.00-0.03); Imm Gran Pct Auto 0.3 % (0.0-0.4); Lymphocytes Percent Auto 30.9 % (20-40); Mean Corpuscular HGB Conc 33.6 g/dl (31.0-36.0); Mean Corpuscular Hemoglobin 27.3 pg (27.0-33.0); Mean Corpuscular Volume 81.1 fL (80.0-98.0); Mean Platelet Volume 11.6 fL (9.4-12.4); Monocytes Absolute Auto 0.4 X10*3/uL (0.1-1.2); Monocytes Percent Auto 6.9 % (2-11); Neutrophils Absolute Auto 3.7 x10*3/uL (2.0-8.3); Platelet Count 196 X10*3/uL (160-400); Red Blood Count 4.88 X10*6/uL (4.60-5.80); Red Cell Distribution Width 14.6 % (11.0-16.0); White Blood Count 6.4 X10*3/uL (4.8-10.8)
[2024-06-25 13:51] LABS: Alanine Aminotransferase 12 U/L (0-40); Albumin Level 4.4 g/dL (3.5-5.0); Alkaline Phosphatase 77 U/L (39-117); Anion Gap 12 (12-20); Aspartate Amino Transferase 13 U/L (5-37); Bilirubin Total 0.3 mg/dL (0.0-1.0); Blood Urea Nitrogen 17 mg/dL (9-16); Calcium 8.9 mg/dL (8.4-10.2); Carbon Dioxide 24 mmol/L (22-29); Chloride 106 mmol/L (96-108); Estimated Glomerular Filt Rate 51; Glucose Random 100 mg/dL (60-115); Potassium 4.2 mmol/L (3.3-5.1); Sodium 138 mmol/L (135-145); Total Protein 7.1 g/dL (6.5-8.0)
[2024-06-25 14:15] LABS: Influenza A PCR NEGATIVE (Negative); Influenza B PCR NEGATIVE (Negative); Resp Syncy Virus RNA Qual PCR NEGATIVE (Negative); SARS COV2 PCR INHOUSE NEGATIVE (Negative)
== END 2024-06-25 10:41 | disposition home or self-care (01) ==
LOC: HO.HMGCX 10:40
PROVIDERS: PCP Internal Medicine; Visit Provider Internal Medicine
DX: R53.1 Weakness (principal); R09.89 Other specified symptoms and signs involving the circulatory and respiratory systems
CPT/HCPCS: 0241U; 36415; 71046; 80053; 85025

== ENCOUNTER 2024-07-16 10:57 | Outpatient (AMB) | payer MEDICARE, OTHER, SELFPAY ==
[2024-07-16 10:59] VITALS: BP 122/76; PULSE 62; O2SAT 97; BMI 28.2
--- NOTE | 2024-07-16 10:59 | A.OFFPC_ITS ---
Vital Signs 07/16/24 10:59 Height 5 ft 6 in Weight 175 lb BMI 28.2 BP 122/76 Blood Pressure Location Rt brachial Position Sitting Pulse 62 Pulse Source Pulse Oximeter Pulse Oximetry (%) 97 Oxygen Delivery Method Room Air Intake Visit Reasons: Per [place] Allergies No Known Drug Allergies [NO KNOWN DRUG ALLERGIES] Allergy (Unknown, Verified 07/16/24 10:59) NONE Medication List - Last Reconciled 07/16/24 by Elen Gamez MD aspirin (Adult Low Dose Aspirin) 81 mg PO DAILY citalopram 20 mg PO DAILY cyanocobalamin (vitamin B-12) 1,000 mcg PO DAILY 90 days ferrous sulfate 324 mg PO ONCE 90 days lisinopril 20 mg PO DAILY omeprazole 40 mg PO DAILY risperidone (Risperdal) 0.5 mg PO BEDTIME Tobacco use date assessed: 07/16/24 Last assessed Fall Risk: 07/16/24 Dental Screening Dental Screen Date: 07/16/24 Did you have a dental visit in the last 12 months?: Yes Did you have a dental problem in the last 6 months where you did not have access to dental care?: No Was dental information given to patient?: Patient has dentist HPI Per [place] HPI Details Patient is 84-year-old gentleman who is usually very active and is continued to be He got sick few weeks ago but has been recovering since Patient continued to climb stairs as his bedroom is upstairs However he is not very stable on his feet now I would recommend to move the room down stay but patient is reluctant He has appointment coming up with the truck rental clerk as he is feeling more and more short of breath compared to before. He is also complaining of pain under his both feet I have ordered x-ray Also instructed to start giving him 1 Tylenol arthritis in the morning with breakfast. Appetite is stable Blood pressure is well-controlled patient is on lisinopril 20 mg and is tolerating medication He is also on citalopram 20 mg as mood stabilizer Patient suffers from dementia and feels agitated at night has been giving him 1 risperidone at bedtime which is working well for the patient He is also slightly anemic and is on iron supplement and B12 supplement Follow-up 4 months we will do telemedicine visit because of winter [facility] Medical History Post-COVID syndrome COVID-19 virus infection Hypertension, essential Benign prostatic hyperplasia Depression, major, recurrent Surgical History History of orthopedic surgery Family History Father Unknown family medical history Mother Unknown family medical history Social History Housing: House Patient Tobacco Use Status: Former Tobacco user Tobacco use type: Cigarette e-Cigarette/Vaping Use: Never Used service: No Current occupational status: retired Cognitive needs: No Hearing needs: No Vision needs: No Questionnaire PHQ-9 Over the last 2 weeks, how often have you been bothered by any of the following problems? 1. Little interest or pleasure in doing things: not at all 2. Feeling down, depressed, or hopeless: not at all 3. Trouble falling or staying asleep, or sleeping too much: not at all 4. Feeling tired or having little energy: not at all 5. Poor appetite or overeating: not at all 6. Feeling bad about yourself - or that you are a failure or have let yourself or your family down: not at all 7. Trouble concentrating on things, such as reading the newspaper or watching television: not at all 8. Moving or speaking so slowly that other people could have noticed. Or the opposite - being so fidgety or restless that you have been moving around a lot more than usual: not at all 9. Thoughts that you would be better off or of hurting yourself in some way: not at all Total score: 0 Depression Screening Interpretation: Negative Depression Screening Done: Yes 35928 - PHQ-9 Billing: Yes Source: Developed by Drs. Eric Watson, Starr Cortes, Gildardo Rome and colleagues, with an educational zaria from [employer]. Thrive Questionnaire Date Thrive assessed: 07/16/24 I am a: Patient What is your living situation today?: I have a steady place to live Within the past 12 months, did the food you bought not last and you didn't have the money to get more?: Never true Within the past 12 months, did you worry whether your food would run out before you got money to buy more?: Never true Do you have trouble paying for medicines?: No Do you have trouble getting transportation to medical appointments?: No Do you have trouble paying your heating and electricity bill?: No Do you have trouble taking care of your child, family member or friend?: No Do you have trouble with day-to-day activities such as bathing, preparing meals, shopping, managing finances, etc.?: No Are you currently unemployed and looking for a job?: No Are you interested in more education?: No Please select the resources that you would like help with: None Currently or been in a relationship where the following occur: No concerns reported THRIVE Score: 0 AUDIT C Alcohol Use Questionnaire (AUDIT-C) 1. How often do you have a drink containing alcohol?: Never 3. How often do you have six or more drinks on one occasion?: Never Total Score: 0 Score Reviewed/Action Taken: Yes BENJAMIN-7 AMB Questionnaire BENJAMIN-7 Date BENJAMIN - 7 assessed: 07/16/24 Feeling nervous, anxious, or on edge: 0 = Not at all Not being able to stop or control worryin = Not at all Worrying too much about different things: 0 = Not at all Trouble relaxin = Not at all Being so restless that it is hard to sit still: 0 = Not at all Becoming easily annoyed or irritable: 0 = Not at all Feeling afraid as if something awful might happen: 0 = Not at all Total BENJAMIN-7 score (0-4 normal; 5-9 mild; 10-14 moderate; 15-21 severe): 0 Source: Developed by Drs. Eric Watson, Starr Cortes, Gildardo Rome and colleagues, with an educational zaria from [employer]. BENJAMIN-7 Assessment Billing BENJAMIN-7 Assessment Tool: BENJAMIN-7 Assessment 15006 Review of Systems Const Denies chills and Denies fever(s) ENT Denies epistaxis and Denies nasal discharge Card Denies chest pain Resp Denies chest congestion, Denies cough and Denies hemoptysis GI Denies diarrhea and Denies nausea Skin/Breast Denies rash Neuro Reports no additional complaints Psych Reports no additional complaints Endo Reports no additional complaints Physical exam (Primary Care) Vital Signs: Last Vital Signs Pulse 62 07/16/24 10:59 BP 122/76 07/16/24 10:59 Pulse Ox 97 07/16/24 10:59 Oxygen Delivery Method Room Air 07/16/24 10:59 BMI result Body Mass Index 28.2 Tobacco/Smoking Status: Tobacco use Status Tobacco use date assessed 07/16/24 07/16/24 11:00 Patient Tobacco Use Status Former Tobacco user 07/16/24 11:00 Tobacco use type Cigarette 07/16/24 11:00 e-Cigarette/Vaping Use Never Used 07/16/24 11:00 PHQ-9: PHQ-9 Score PHQ-9: Total score 0 07/16/24 11:12 Depression Screening Interpretation: Negative Thrive Assessment: Date of Thrive Assessment Date Thrive assessed 07/16/24 07/16/24 11:00 Currently or been in a relationship where the following occur: No concerns reported Const General: cooperative, comfortable and no acute distress Orientation/consciousness: patient oriented x3 HENMT Head: Yes normocephalic Eyes General: appearance normal, both eyes and all related structures Neck Neck: Yes supple Resp Effort & Inspection: normal respiratory effort, no cough and no stridor Cardio Rhythm: regular rhythm Heart sounds: S1 normal heart sound present and S2 normal heart sound present Skin General skin exam: turgor normal Neuro General: patient oriented x3, tone normal and moves all extremities Extrem Right lower extremity: no edema Left lower extremity: no edema Assessment and Plan Assessment & Plan (1) Hypertension, essential: Code(s): I10 - Essential (primary) hypertension (2) Foot pain, bilateral: Code(s): M79.671 - Pain in right foot; M79.672 - Pain in left foot (3) Benign prostatic hyperplasia: Code(s): N40.0 - Benign prostatic hyperplasia without lower urinary tract symptoms Qualifiers: Lower urinary tract symptom presence: symptoms absent Qualified Code(s): N40.0 - Benign prostatic hyperplasia without lower urinary tract symptoms (4) Depression, major, recurrent: Code(s): F33.9 - Major depressive disorder, recurrent, unspecified Qualifiers: Active/Remission status: in partial remission Qualified Code(s): F33.41 - Major depressive disorder, recurrent, in partial remission (5) Agitation due to dementia: Code(s): F03.911 - Unspecified dementia, unspecified severity, with agitation (6) Dementia: Comment: HE DOES HAVE MEMORY LOSS AND BEHAVIOR DISORDER WHICH IS CONTROLLED, IS ALSO ON CITALOPRAM FOR DEPRESSION. IS MENTAL CAPACITY IS MODERATELY IMPAIRED AT THIS TIME. Code(s): F03.90 - Unspecified dementia, unspecified severity, without behavioral disturb ance, psychotic disturbance, mood disturbance, and anxiety Qualifiers: Dementia behavioral or psychological symptom: with other behavioral disturbance Dementia severity: mild Dementia type: unspecified type Qualified Code(s): F03.A18 - Unspecified dementia, mild, with other behavioral disturbance (7) Nephropathy: Code(s): N28.9 - Disorder of kidney and ureter, unspecified (8) Chronic GERD: Code(s): K21.9 - Gastro-esophageal reflux disease without esophagitis (9) Anemia: Code(s): D64.9 - Anemia, unspecified Qualifiers: Other causes of anemia: chronic disease, other Anemia type: other cause Qualified Code(s): D63.8 - Anemia in other chronic diseases classified elsewhere Plan Patient is 84-year-old gentleman who is usually very active and is continued to be He got sick few weeks ago but has been recovering since Patient continued to climb stairs as his bedroom is upstairs However he is not very stable on his feet now I would recommend to move the room down stay but patient is reluctant He has appointment coming up with the truck rental clerk as he is feeling more and more short of breath compared to before. He is also complaining of pain under his both feet I have ordered x-ray Also instructed to start giving him 1 Tylenol arthritis in the morning with breakfast. Appetite is stable Nephropathy: GFR is 51 Blood pressure is well-controlled patient is on lisinopril 20 mg and is tolerating medication He is also on citalopram 20 mg as mood stabilizer Patient suffers from dementia and feels agitated at night has been giving him 1 risperidone at bedtime which is working well for the patient He is also slightly anemic and is on iron supplement and B12 supplement Follow-up 4 months we will do telemedicine visit because of winter months Orders: Orders XR foot LT 2V Today M79.671 - Pain in right foot, M79.672 - Pain in left foot XR foot RT 2V Today M79.671 - Pain in right foot, M79.672 - Pain in left foot Coding Level of Care Code Est Pt Level 4 (57004) Complex EM visit Add On G2211 Diagnoses Hypertension, essential I10 Foot pain, bilateral M79.671; M79.672 Benign prostatic hyperplasia without lower urinary tract symptoms N40.0 Lower urinary tract symptom presence: symptoms absent Recurrent major depressive disorder, in partial remission F33.41 Active/Remission status: in partial remission Agitation due to dementia F03.911 Mild dementia with other behavioral disturbance, unspecified dementia type F03.A18 Dementia behavioral or psychological symptom: with other behavioral disturbance Dementia severity: mild Dementia type: unspecified type Nephropathy N28.9 Chronic GERD K21.9 Anemia in other chronic diseases classified elsewhere D63.8 Other causes of anemia: chronic disease, other Anemia type: other cause Additional Codes BENJAMIN-7 Assessment Billing - BENJAMIN-7 Assessment Tool: BENJAMIN-7 Assessment 52553 ([id number])
== END 2024-07-16 11:40 | disposition home or self-care (01) ==
PROVIDERS: PCP Internal Medicine; Visit Provider Internal Medicine
DX: I10 Essential (primary) hypertension (principal); F33.41 Major depressive disorder, recurrent, in partial remission; F03.911 Unspecified dementia, unspecified severity, with agitation; F03.A18 Unspecified dementia, mild, with other behavioral disturbance; M79.671 Pain in right foot; M79.672 Pain in left foot; N40.0 Benign prostatic hyperplasia without lower urinary tract symptoms; N28.9 Disorder of kidney and ureter, unspecified; K21.9 Gastro-esophageal reflux disease without esophagitis; D63.8 Anemia in other chronic diseases classified elsewhere
CPT/HCPCS: 99214; G2211

== ENCOUNTER 2024-07-16 11:25 | Outpatient (REF) | payer MEDICARE, BC, SELFPAY ==
--- NOTE | ~2024-07-16 | XR_ITS ---
EXAMINATION: XR FOOT, RIGHT XR FOOT, LEFT CLINICAL INFORMATION: Right and left foot pain. COMPARISON: None available. TECHNIQUE: AP, oblique, and lateral views of the right and left foot. FINDINGS: RIGHT FOOT: 1st metatarsophalangeal hallux valgus angulation with lateral subluxation of the hallux sesamoids and mild osteoarthritis. No acute fracture or dislocation. Tiny plantar calcaneal spur. No concerning lytic or blastic osseous lesion. LEFT FOOT: 1st metatarsophalangeal hallux valgus angulation with lateral subluxation of the hallux sesamoids and mild osteoarthritis. No acute fracture or dislocation. No concerning lytic or blastic osseous lesion. No abnormal soft tissue calcification. XR/XR foot RT min 3V IMPRESSION: RIGHT FOOT: 1st metatarsophalangeal hallux valgus angulation with lateral subluxation of the hallux sesamoids and mild osteoarthritis. Tiny plantar calcaneal spur. LEFT FOOT: 1st metatarsophalangeal hallux valgus angulation with lateral subluxation of the hallux sesamoids and mild osteoarthritis. Electronically signed by: Hilario Chester MD 07/31/2024 08:55 PM EDT
--- NOTE | ~2024-07-16 | XR_ITS ---
EXAMINATION: XR FOOT, RIGHT XR FOOT, LEFT CLINICAL INFORMATION: Right and left foot pain. COMPARISON: None available. TECHNIQUE: AP, oblique, and lateral views of the right and left foot. FINDINGS: RIGHT FOOT: 1st metatarsophalangeal hallux valgus angulation with lateral subluxation of the hallux sesamoids and mild osteoarthritis. No acute fracture or dislocation. Tiny plantar calcaneal spur. No concerning lytic or blastic osseous lesion. LEFT FOOT: 1st metatarsophalangeal hallux valgus angulation with lateral subluxation of the hallux sesamoids and mild osteoarthritis. No acute fracture or dislocation. No concerning lytic or blastic osseous lesion. No abnormal soft tissue calcification. XR/XR foot LT min 3V IMPRESSION: RIGHT FOOT: 1st metatarsophalangeal hallux valgus angulation with lateral subluxation of the hallux sesamoids and mild osteoarthritis. Tiny plantar calcaneal spur. LEFT FOOT: 1st metatarsophalangeal hallux valgus angulation with lateral subluxation of the hallux sesamoids and mild osteoarthritis. Electronically signed by: Hilario Chester MD 07/31/2024 08:55 PM EDT
== END 2024-07-16 11:26 | disposition home or self-care (01) ==
LOC: HO.HMGCX 11:25
PROVIDERS: PCP Internal Medicine; Visit Provider Internal Medicine
DX: M79.672 Pain in left foot (principal); M79.671 Pain in right foot
CPT/HCPCS: 73630

== ENCOUNTER 2024-07-23 14:21 | Outpatient (AMB) | payer MEDICARE, OTHER, SELFPAY ==
[2024-07-23 14:48] VITALS: BP 120/62; PULSE 68; BMI 28.1
--- NOTE | 2024-07-23 14:48 | MHC.OFFVIS ---
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 Allergies Seasonal Allergies Allergy (Intermediate, Verified 07/23/24 14:50) sneezing No Known Drug Allergies [NO KNOWN DRUG ALLERGIES] Allergy (Unknown, Verified 07/16/24 10:59) NONE Medication List - Last Reconciled 07/23/24 by Meghana Somers NP aspirin (Adult Low Dose Aspirin) 81 mg PO DAILY azithromycin 250 mg PO ONCE 5 days citalopram 20 mg PO DAILY cyanocobalamin (vitamin B-12) 1,000 mcg PO DAILY 90 days ferrous sulfate 324 mg PO ONCE 90 days lisinopril 20 mg PO DAILY omeprazole 40 mg PO DAILY risperidone (Risperdal) 0.5 mg PO BEDTIME HPI Comments Details: 84-year-old female presents today for a new patient visit. He is present with his . He is here due to being found to be bradycardic on a EKG at his primary care. Rate was 48 bpm. He reports he feels spacy sometimes, short of breath with exertion, and feeling weak. He denies any dizziness, falls, syncope, or chest discomforts. He has a history of dementia, anemia, hypertension, and GERD. [facility] Medical History Dyspnea on exertion Post-COVID syndrome COVID-19 virus infection Hypertension, essential Benign prostatic hyperplasia Depression, major, recurrent Surgical History History of orthopedic surgery Family History Father Unknown family medical history Mother Unknown family medical history Social History Housing: House Alcohol intake: current Alcohol intake frequency: holidays/special occasions only Patient Tobacco Use Status: Former Tobacco user Tobacco use type: Cigarette e-Cigarette/Vaping Use: Never Used service: No Current occupational status: retired Cognitive needs: No Hearing needs: No Vision needs: No Review of Systems Const Denies weakness ENT Denies dizziness Card Denies chest pain, Denies chest pain with activity, Denies syncope, Denies rapid heart rate, Denies pedal edema, Denies edema, Denies leg edema, Denies lightheadedness, Denies palpitations, Denies dyspnea, Denies dyspnea on exertion and Denies orthopnea Resp Denies cough, Denies dyspnea and Denies dyspnea on exertion GI Denies hematochezia and Denies change in stool character Musc Denies abnormal gait, Denies muscle cramps, Denies muscle weakness, Denies numbness, Denies radiating pain into limb and Denies tingling Neuro Denies abnormal gait, Denies dizziness, Denies syncope, Denies numbness, Denies tingling and Denies weakness Endo Denies palpitations Physical Exam Vital Signs: Last Vital Signs Pulse 68 07/23/24 14:48 BP 120/62 07/23/24 14:48 BMI result Body Mass Index 28.1 Const General: healthy appearing and no acute distress Orientation/consciousness: patient oriented x3 HEENT Head: Yes normal to inspection Eyes General: appearance normal, both eyes and all related structures Neck Neck: Yes normal visual inspection Chest Chest palpation & inspection: normal inspection of the chest Resp Effort & Inspection: normal respiratory effort Auscultation: clear to auscultation bilaterally Cardio Jugular venous distension: no JVD Palpation: normal PMI Rate: regular rate Rhythm: regular rhythm Heart sounds: S1 normal heart sound present, S2 normal heart sound present, no click, no gallops, no murmurs and no rubs GI Inspection: Yes normal to inspection Palpation (GI): Soft to palpation Skin General skin exam: no rashes or lesions noted Neuro General: patient oriented x3 Extrem General: Yes normal to inspection Psych Appearance: grossly normal Assessment & Plan Assessment & Plan (1) Dyspnea on exertion: Code(s): R06.09 - Other forms of dyspnea Category: Medical (2) Bradycardia: Code(s): R00.1 - Bradycardia, unspecified Category: Medical Plan Heart rate on exam is 68. EKG from primary care shows heart rate of 48. We will obtain Holter monitor to assess rate and rhythm. We will get echocardiogram to assess for structural changes. We will obtain pharmacological stress test due to shortness of breath with exertion. Patient can walk slowly on the treadmill flat if needed due to bradycardia and to assess rate change with mild exertion. Patient and partner understand report any new symptoms. Emergency care if needed. Orders: Orders CA echo transthoracic complete 07/23/24 R06.09 - Other forms of dyspnea CA lexiscan stress w camille 07/23/24 R06.09 - Other forms of dyspnea ECG 3 day holter monitor 07/23/24 R00.1 - Bradycardia, unspecified NM cardiolite stress test 07/23/24 R06.02 - Shortness of breath, R06.09 - Other forms of dyspnea Coding Level of Care Code New Pt Level 4 (35262) Diagnoses Dyspnea on exertion R06.09 Bradycardia R00.1
== END 2024-07-23 15:13 | disposition home or self-care (01) ==
PROVIDERS: PCP Internal Medicine; Visit Provider Nurse Practitioner
DX: R06.09 Other forms of dyspnea (principal); R00.1 Bradycardia, unspecified
CPT/HCPCS: 99204

== ENCOUNTER → 2024-07-23 14:21 | Outpatient (BNVA) | payer MEDICARE, BC, OTHER, SELFPAY | PROVIDERS: PCP Internal Medicine; Visit Provider Nurse Practitioner | DX: I10 Essential (primary) hypertension (principal); R00.1 Bradycardia, unspecified; R06.09 Other forms of dyspnea | CPT/HCPCS: 99202 ==

== ENCOUNTER → 2024-08-20 09:49 | Outpatient (REF) | payer MEDICARE, BC, SELFPAY ==
--- NOTE | 2024-08-20 09:54 | CA_ITS ---
Transthoracic Echocardiogram Patient (Last, First, Middle): Zachary Guajardo A Gender: Male Date of : 1940 Age: 84 Procedure Date: 08/20/2024 Procedure Type: Transthoracic Echocardiogram Location: OP Height: 167.64 cm Weight: 78.02 kg BSA: 1.88 m2 Heart Rate: bpm BP: 138 / 78 mmHg Emulsion Coater: TO Referring MD: Meghana Somers [employer] Facilities Maintenance Technician: rOlando Rosas MD Symptoms: R06.09 - Other forms of dyspnea Study Quality: Fair/Contrast ECG Rhythm: Sinus Conclusions: - 1. Normal LV ejection fraction of 60-65% with pseudonormal filling pattern 2. At least moderately dilated left atrium 3. Normal cardiac valvular Dopplers 4. Normal RV systolic pressure 5. No pericardial effusion Findings Procedure Information Contrast agent, definity, is being given per protocol without apparent complications. Left Ventricle Normal left ventricular size, thickness, and systolic function. The visually estimated ejection fraction is between 60-65%. Spectral Doppler is indicative of a pseudonormal filling pattern. E/E prime ratio is between 8 and 15 consistent with indeterminate filling pressures. Right Ventricle Normal right ventricular cavity size and systolic function. Atria The left atrium is moderately dilated. There is no evidence of interatrial shunt. The right atrium is normal in size. Aortic Valve Normal aortic valve structure and function. There is no aortic valve stenosis. There is no aortic valve regurgitation. Mitral Valve There is mild anterior and posterior mitral leaflet thickening. There is trace mitral valve regurgitation. There is no mitral valve stenosis. Pulmonic Valve The pulmonic valve is likely normal. There is trace pulmonic valve regurgitation. Tricuspid Valve Normal tricuspid valve structure. There is mild tricuspid valve regurgitation. The right ventricular systolic pressure is normal. The right ventricular systolic pressure is 27 mmHg. Normal right atrial pressure. There is no evidence of pulmonary hypertension. Great Vessels All visible segments of the aorta are normal in size. The pulmonary artery was not well visualized. There is no dilatation of the ascending aorta measuring 3.20 cm. Small plaque is seen in the sino tubular ridge. Venous The inferior vena cava is normal in size and collapses greater than 50% with inspiration. Pericardium/Pleural There is no evidence of pericardial effusion. Measurements 2D Linear Measurements IVSd: 1.04 0.6-0.9/0.6-1.0 cm LVIDd: 4.53 3.9-5.3/4.2-5.9 cm LVIDd Index: 2.41 2.4-3.2/2.2-3.1 cm/m2 LVIDs: 2.90 2.0-3.6 cm LVPWd: 1.07 0.7-1.1 cm LA Diam: 2.80 2.7-3.8/3.0-4.0 cm LAIDs Index: 1.49 1.5-2.3 cm/m2 LV Mass: 207.79 67-162/88-224 g LV Mass Index: 110.53 43-95/49-115 g/m2 LVOT Diam: 2.10 3.0+(-)1.3 cm 2D Systolic Function EF 4C: 60.00 >55% EF 2C: 63.90 >55% EF BiP: 61.10 >55% Mitral Valve MV Pk E: 0.74 MV PK A: 0.41 MV Decel Time: 226.00 E/A: 1.80 E'Lateral: 5.87 E'Medial: 4.46 E/E' Med: 16.50 E/E' Lat: 12.60 PHT: 66.00 MVA PHT: 3.33 Decel Canadian: 3.27 Aortic Valve AoV Pk Piter: 1.20 AoV Mn Piter: 0.79 AoV VTI: 0.26 AoV Pk Grad: 6.00 Aov Mn Grad: 3.00 URMILA Cont.VTI: 2.91 LVOT LVOT Pk Piter: 0.84 LVOT Mn Piter: 0.50 LVOT VTI: 0.22 LVOT Pk Grad: 3.00 LVOT Mn Grad: 1.00 LVOT Diam: 2.10 LVOT Area: 3.46 Diastolic Function MV Pk E: 0.74 MV Pk A: 0.41 E/A: 1.80 E'Medial: 4.46 E/E' Med: 16.50 E' Laterial: 5.87 E/E' Lat: 12.60 Right Ventricle TAPSE (mm): 16.10 TVS' Piter: 10.60 Tricuspid Valve TR Pk Piter: 2.47 TR Pk Grad: 24.00 RA Press: 3.00 RVSP: 27.00 Great Vessels Aorta Sinus of Valsalva: 3.24 2.0-3.[address] Ridge: 2.71 1.7-3.4 cm Ao Asc: 3.20 2.1-3.4 cm Updated in Other Vendor System with Status of Final Orlando Rosas MD electronically signed on 08/21/2024 8:53:22 AM with status of Final
--- NOTE | 2024-08-20 09:54 | HM_ITS ---
* Total monitoring time 3 days. * Underlying rhythm is sinus with an average rate of 59/Min. About 58% of the time, rate < 60/Min. * Supraventricular ectopy noted with a burden of 1.4%. * Rare ventricular ectopy. * No significant pauses or high-grade AV blocks. * No patient markers or diary events. MTDD
== END ==
LOC: HO.CARD 09:49
PROVIDERS: PCP Internal Medicine; Visit Provider Nurse Practitioner
DX: R00.1 Bradycardia, unspecified (principal); R06.09 Other forms of dyspnea
CPT/HCPCS: 93242; 93306; Q9957

== ENCOUNTER → 2024-08-20 09:54 | Outpatient (BNV) | payer MEDICARE, OTHER, SELFPAY | PROVIDERS: PCP Internal Medicine; Visit Provider Internal Medicine Cardiovascular Disease | DX: I47.10 Supraventricular tachycardia, unspecified (principal) | CPT/HCPCS: 93244; 93306 ==

== ENCOUNTER 2024-11-13 08:37 | Outpatient (AMB) | payer MEDICARE, BC, SELFPAY ==
--- NOTE | 2024-11-13 08:52 | A.OFFPC_ITS ---
Intake Visit Reasons: 4m TV Allergies Seasonal Allergies Allergy (Intermediate, Verified 11/13/24 08:52) sneezing No Known Drug Allergies [NO KNOWN DRUG ALLERGIES] Allergy (Unknown, Verified 11/13/24 08:52) NONE Medication List - Last Reconciled 11/13/24 by Elen Gamez MD aspirin (Adult Low Dose Aspirin) 81 mg PO DAILY azithromycin 250 mg PO ONCE 5 days citalopram 20 mg PO DAILY cyanocobalamin (vitamin B-12) 1,000 mcg PO DAILY 90 days ferrous sulfate 324 mg PO ONCE 90 days lisinopril 20 mg PO DAILY omeprazole 40 mg PO DAILY prednisone 10 mg PO DAILY 3 days risperidone (Risperdal) 0.5 mg PO BEDTIME Tobacco use date assessed: 11/13/24 Fall risk assessment: No Falls in past year Last assessed Fall Risk: 11/13/24 Dental Screening Dental Screen Date: 11/13/24 Did you have a dental visit in the last 12 months?: No Did you have a dental problem in the last 6 months where you did not have access to dental care?: No Was dental information given to patient?: Patient declined HPI 4m TV HPI Details order labs History of Present Illness - The patient is an 84-year-old male pre senting with acute bronchitis. - The patient described recent onset of severe coughing that has led to disrupted sleep. - There is associated heavy breathing. - There is a history of similar episodes progressing to bronchitis in the past. - Treatment had not commenced due to a d elay in obtaining prescribed antibiotics from the pharmacy. - Prednisone was prescribed to assist in managing symptoms. Review of Systems - Respiratory: Reports persistent cough and heavy breathing. No nausea vomiting diarrhea Denies chest pain Plan I have prescribed an antibiotic for the treatment of acute bronchitis to assist in resolving the infection. Furthermore, prednisone is prescribed to decrease airway inflammation and aid in breathing improvement. Blood tests are recommended following recovery to assess overall health status. The patient is advised to ensure consistent medication adherence and to monitor respiratory symptoms closely to prevent further complications. Patient was informed and verbally consented to the use of an ambient scribe for clinic note documentation during this visit. [facility] Medical History Dyspnea on exertion Post-COVID syndrome COVID-19 virus infection Hypertension, essential Benign prostatic hyperplasia Depression, major, recurrent Surgical History History of orthopedic surgery Family History Father Unknown family medical history Mother Unknown family medical history Social History Housing: House Alcohol intake: current Alcohol intake frequency: holidays/special occasions only Patient Tobacco Use Status: Former Tobacco user Tobacco use type: Cigarette e-Cigarette/Vaping Use: Never Used service: No Current occupational status: retired Cognitive needs: No Hearing needs: No Vision needs: No Questionnaire Thrive Questionnaire Date Thrive assessed: 07/16/24 AUDIT C Alcohol Use Questionnaire (AUDIT-C) 1. How often do you have a drink containing alcohol?: Never 3. How often do you have six or more drinks on one occasion?: Never Total Score: 0 Score Reviewed/Action Taken: Yes BENJAMIN-7 AMB Questionnaire BENJAMIN-7 Date BENJAMIN - 7 assessed: 07/16/24 Source: Developed by Drs. Eric Watson, Starr Cortes, Gildardo Rome and colleagues, with an educational zaria from [employer]. Physical exam (Primary Care) Tobacco/Smoking Status: Tobacco use Status Tobacco use date assessed 11/13/24 11/13/24 08:53 Patient Tobacco Use Status Former Tobacco user 11/13/24 08:53 Tobacco use type Cigarette 11/13/24 08:53 e-Cigarette/Vaping Use Never Used 11/13/24 08:53 Thrive Assessment: Date of Thrive Assessment Date Thrive assessed 07/16/24 11/13/24 08:53 Telehealth Telehealth Telehealth Platform: [facility] Location of provider rendering services: practice address Location of patient: address on file Patient Identification confirmed using: Name, : Yes Telehealth method: voice only Patient verbally consented to treatment: Yes Patient verbally consented to billing insurance company: Yes Patient informed of any privacy concerns related to visit: Yes Minutes spent on Phone/Video with Pt.: 13 Coding Level of Care Code Tele Est Pt Level 3 (36973) Diagnoses Chest congestion R09.89 Acute cough R05.1 Cough type: acute Assessment & Plan Assessment & Plan (1) Chest congestion: Code(s): R09.89 - Other specified symptoms and signs involving the circulatory and respiratory systems Category: Medical (2) Cough: Code(s): R05.9 - Cough, unspecified Category: Medical Qualifiers: Cough type: acute Qualified Code(s): R05.1 - Acute cough Plan order labs History of Present Illness - The patient is an 84-year-old male presenting with acute bronchitis. - The patient described recent onset of severe coughing that has led to disrupted sleep. - There is associated heavy breathing. - There is a history of similar episodes progressing to bronchitis in the past. - Treatment had not commenced due to a delay in obtaining prescribed antibiotics from the pharmacy. - Prednisone was prescribed to assist in managing symptoms. Review of Systems - Respiratory: Reports persistent cough and heavy breathing. No nausea vomiting diarrhea Denies chest pain Plan I have prescribed an antibiotic for the treatment of acute bronchitis to assist in resolving the infection. Furthermore, prednisone is prescribed to decrease airway inflammation and aid in breathing improvement. Blood tests are recommended following recovery to assess overall health status. The patient is advised to ensure consistent medication adherence and to monitor respiratory symptoms closely to prevent further complications. Patient was informed and verbally consented to the use of an ambient scribe for clinic note documentation during this visit.
== END 2024-11-13 10:18 | disposition home or self-care (01) ==
LOC: HO.HMCC 08:37
PROVIDERS: PCP Internal Medicine; Visit Provider Internal Medicine
DX: R09.89 Other specified symptoms and signs involving the circulatory and respiratory systems (principal); R05.1 Acute cough

== ENCOUNTER → 2024-11-13 08:37 | Outpatient (BNVA) | payer MEDICARE, BC, SELFPAY | PROVIDERS: PCP Internal Medicine; Visit Provider Internal Medicine ==

== ENCOUNTER 2024-11-20 08:27 | Outpatient (AMB) | payer MEDICARE, BC, SELFPAY ==
--- NOTE | 2024-11-20 08:38 | MHC.PC.OV ---
Intake Visit Reasons: F/U Chest Cold Allergies Seasonal Allergies Allergy (Intermediate, Verified 11/20/24 08:38) sneezing No Known Drug Allergies [NO KNOWN DRUG ALLERGIES] Allergy (Unknown, Verified 11/20/24 08:38) NONE Medication List - Last Reconciled 11/20/24 by Elen Gamez MD aspirin (Adult Low Dose Aspirin) 81 mg PO DAILY citalopram 20 mg PO DAILY cyanocobalamin (vitamin B-12) 1,000 mcg PO DAILY 90 days ferrous sulfate 324 mg PO ONCE 90 days lisinopril 20 mg PO DAILY omeprazole 40 mg PO DAILY risperidone (Risperdal) 0.5 mg PO BEDTIME Tobacco use date assessed: 11/20/24 Fall risk assessment: No Falls in past year Last assessed Fall Risk: 11/20/24 Dental Screening Dental Screen Date: 11/20/24 Did you have a dental visit in the last 12 months?: No Did you have a dental problem in the last 6 months where you did not have access to dental care?: No Was dental information given to patient?: Patient declined HPI HPI Comments History of Present Illness Details Patient is 84-year-old gentleman , this is a telemedicine visit His respiratory illness has gotten much better Patient was treated with antibiotic and prednisone Appetite is stable Blood pressure is well-controlled patient is on lisinopril 20 mg and is tolerating medication He is also on citalopram 20 mg as mood stabilizer Patient suffers from dementia and feels agitated at night has been giving him 1 risperidone at bedtime which is working well for the patient He is also slightly anemic and is on iron supplement and B12 supplement Due for labs Follow-up 4 months [facility] Medical History Dyspnea on exertion Post-COVID syndrome COVID-19 virus infection Hypertension, essential Benign prostatic hyperplasia Depression, major, recurrent Surgical History History of orthopedic surgery Family History Father Unknown family medical history Mother Unknown family medical history Social History Housing: House Alcohol intake: current Alcohol intake frequency: holidays/special occasions only Patient Tobacco Use Status: Former Tobacco user Tobacco use type: Cigarette e-Cigarette/Vaping Use: Never Used service: No Current occupational status: retired Cognitive needs: No Hearing needs: No Vision needs: No Questionnaire PHQ-9 Over the last 2 weeks, how often have you been bothered by any of the following problems? 1. Little interest or pleasure in doing things: not at all 2. Feeling down, depressed, or hopeless: not at all 3. Trouble falling or staying asleep, or sleeping too much: not at all 4. Feeling tired or having little energy: not at all 5. Poor appetite or overeating: not at all 6. Feeling bad about yourself - or that you are a failure or have let yourself or your family down: not at all 7. Trouble concentrating on things, such as reading the newspaper or watching television: not at all 8. Moving or speaking so slowly that other people could have noticed. Or the opposite - being so fidgety or restless that you have been moving around a lot more than usual: not at all 9. Thoughts that you would be better off or of hurting yourself in some way: not at all Total score: 0 Depression Screening Interpretation: Negative Depression Screening Done: Yes 00333 - PHQ-9 Billing: Yes Source: Developed by Drs. Eric Watson, Starr Cortes, Gildardo Rome and colleagues, with an educational zaria from [employer]. Thrive Questionnaire Date Thrive assessed: 11/20/24 I am a: Patient What is your living situation today?: I have a steady place to live Within the past 12 months, did the food you bought not last and you didn't have the money to get more?: Never true Within the past 12 months, did you worry whether your food would run out before you got money to buy more?: Never true Do you have trouble paying for medicines?: No Do you have trouble getting transportation to medical appointments?: No Do you have trouble paying your heating and electricity bill?: No Do you have trouble taking care of your child, family member or friend?: No Do you have trouble with day-to-day activities such as bathing, preparing meals, shopping, managing finances, etc.?: No Are you currently unemployed and looking for a job?: No Are you interested in more education?: No Please select the resources that you would like help with: None Currently or been in a relationship where the following occur: No concerns reported THRIVE Score: 0 AUDIT C Alcohol Use Questionnaire (AUDIT-C) 1. How often do you have a drink containing alcohol?: Never 3. How often do you have six or more drinks on one occasion?: Never Total Score: 0 Score Reviewed/Action Taken: Yes BENJAMIN-7 AMB Questionnaire BENJAMIN-7 Date BENJAMIN - 7 assessed: 11/20/24 Feeling nervous, anxious, or on edge: 0 = Not at all Not being able to stop or control worryin = Not at all Worrying too much about different things: 0 = Not at all Trouble relaxin = Not at all Being so restless that it is hard to sit still: 0 = Not at all Becoming easily annoyed or irritable: 0 = Not at all Feeling afraid as if something awful might happen: 0 = Not at all Total BENJAMIN-7 score (0-4 normal; 5-9 mild; 10-14 moderate; 15-21 severe): 0 Source: Developed by Drs. Eric Watson, Starr Cortes, Gildardo Rome and colleagues, with an educational zaria from [employer]. BENJAMIN-7 Assessment Billing BENJAMIN-7 Assessment Tool: BENJAMIN-7 Assessment 69621 Physical exam (Primary Care) Tobacco/Smoking Status: Tobacco use Status Tobacco use date assessed 11/20/24 11/20/24 08:40 Patient Tobacco Use Status Former Tobacco user 11/20/24 08:40 Tobacco use type Cigarette 11/20/24 08:40 e-Cigarette/Vaping Use Never Used 11/20/24 08:40 PHQ-9: PHQ-9 Score PHQ-9: Total score 0 11/21/24 07:32 Depression Screening Interpretation: Negative Thrive Assessment: Date of Thrive Assessment Date Thrive assessed 11/20/24 11/20/24 08:40 Currently or been in a relationship where the following occur: No concerns reported Telehealth Telehealth Telehealth Platform: [facility] Location of provider rendering services: practice address Location of patient: address on file Patient Identification confirmed using: Name, : Yes Telehealth method: voice only Patient verbally consented to treatment: Yes Patient verbally consented to billing insurance company: Yes Patient informed of any privacy concerns related to visit: Yes Minutes spent on Phone/Video with Pt.: 13 Coding Level of Care Code Tele Est Pt Level 3 (25010) Diagnoses Hypertension, essential I10 Recurrent major depressive disorder, in partial remission F33.41 Active/Remission status: in partial remission Benign prostatic hyperplasia without lower urinary tract symptoms N40.0 Lower urinary tract symptom presence: symptoms absent Dementia, senile F03.90 Chronic GERD K21.9 Nephropathy N28.9 Additional Codes BENJAMIN-7 Assessment Billing - BENJAMIN-7 Assessment Tool: BENJAMIN-7 Assessment 13390 ([id number]) PHQ-9 - 72849 - PHQ-9 Billing: Yes ([id number]) Assessment & Plan Assessment & Plan (1) Hypertension, essential: Code(s): I10 - Essential (primary) hypertension Category: Medical (2) Depression, major, recurrent: Code(s): F33.9 - Major depressive disorder, recurrent, unspecified Category: Medical Qualifiers: Active/Remission status: in partial remission Qualified Code(s): F33.41 - Major depressive disorder, recurrent, in partial remission (3) Benign prostatic hyperplasia: Code(s): N40.0 - Benign prostatic hyperplasia without lower urinary tract symptoms Category: Medical Qualifiers: Lower urinary tract symptom presence: symptoms absent Qualified Code(s): N40.0 - Benign prostatic hyperplasia without lower urinary tract symptoms (4) Dementia, senile: Code(s): F03.90 - Unspecified dementia, unspecified severity, without behavioral disturbance, psychotic disturbance, mood disturbance, and anxiety Category: Medical (5) Chronic GERD: Code(s): K21.9 - Gastro-esophageal reflux disease without esophagitis Category: Medical (6) Nephropathy: Code(s): N28.9 - Disorder of kidney and ureter, unspecified Category: Medical Plan Patient is 84-year-old gentleman , this is a telemedicine visit His respiratory illness has gotten much better Patient was treated with antibiotic and prednisone Appetite is stable Blood pressure is well-controlled patient is on lisinopril 20 mg and is tolerating medication He is also on citalopram 20 mg as mood stabilizer Patient suffers from dementia and feels agitated at night has been giving him 1 risperidone at bedtime which is working well for the patient He is also slightly anemic and is on iron supplement and B12 supplement Due for labs Follow-up 4 months Orders: Orders Comprehensive Met. Panel 11/20/24 F03.90 - Unspecified dementia, unspecified severity, without behavioral disturbance, psychotic disturbance, mood disturbance, and anxiety, F33.41 - Major depressive disorder, recurrent, in partial remission, I10 - Essential (primary) hypertension, K21.9 - Gastro-esophageal reflux disease without esophagitis, N28.9 - Disorder of kidney and ureter, unspecified, N40.0 - Benign prostatic hyperplasia without lower urinary tract symptoms Vitamin B12 11/20/24 F03.90 - Unspecified dementia, unspecified severity, without behavioral disturbance, psychotic disturbance, mood disturbance, and anxiety, F33.41 - Major depressive disorder, recurrent, in partial remission, I10 - Essential (primary) hypertension, K21.9 - Gastro-esophageal reflux disease without esophagitis, N28.9 - Disorder of kidney and ureter, unspecified, N40.0 - Benign prostatic hyperplasia without lower urinary tract symptoms Complete Blood Count Auto Diff 11/20/24 F03.90 - Unspecified dementia, unspecified severity, without behavioral disturbance, psychotic disturbance, mood disturbance, and anxiety, F33.41 - Major depressive disorder, recurrent, in partial remission, I10 - Essential (primary) hypertension, K21.9 - Gastro-esophageal reflux disease without esophagitis, N28.9 - Disorder of kidney and ureter, unspecified, N40.0 - Benign prostatic hyperplasia without lower urinary tract symptoms
== END 2024-11-20 09:04 | disposition home or self-care (01) ==
LOC: HO.HMCC 08:27
PROVIDERS: PCP Internal Medicine; Visit Provider Internal Medicine
DX: I10 Essential (primary) hypertension (principal); F33.41 Major depressive disorder, recurrent, in partial remission; N40.0 Benign prostatic hyperplasia without lower urinary tract symptoms; F03.90 Unspecified dementia, unspecified severity, without behavioral disturbance, psychotic disturbance, mood disturbance, and anxiety; K21.9 Gastro-esophageal reflux disease without esophagitis; N28.9 Disorder of kidney and ureter, unspecified

== ENCOUNTER → 2024-11-20 08:27 | Outpatient (BNVA) | payer MEDICARE, BC, SELFPAY | PROVIDERS: PCP Internal Medicine; Visit Provider Internal Medicine | DX: I10 Essential (primary) hypertension (principal); F33.41 Major depressive disorder, recurrent, in partial remission; F03.90 Unspecified dementia, unspecified severity, without behavioral disturbance, psychotic disturbance, mood disturbance, and anxiety; N40.0 Benign prostatic hyperplasia without lower urinary tract symptoms; K21.9 Gastro-esophageal reflux disease without esophagitis; N28.9 Disorder of kidney and ureter, unspecified | CPT/HCPCS: 96127 ==

== ENCOUNTER 2025-01-12 09:51 | Outpatient (REF) | payer MEDICARE, OTHER, SELFPAY ==
[2025-01-12 10:18] LABS: MANUAL DIFF FLAG NO
[2025-01-12 10:40] LABS: Basophils Percent Auto 0.4 % (0-2); Eosinophils Absolute Auto 0.3 X10*3/uL (0.0-0.4); Eosinophils Percent Auto 4.9 % (0-4); Hemoglobin 11.3 g/dl (14.0-18.0); Imm Gran Abs Auto 0.02 X10*3/uL (0.00-0.03); Imm Gran Pct Auto 0.4 % (0.0-0.4); Lymphocytes Absolute Auto 1.7 X10*3/uL (1.2-4.9); Lymphocytes Percent Auto 32.6 % (20-40); Mean Corpuscular HGB Conc 32.3 g/dl (31.0-36.0); Mean Corpuscular Hemoglobin 25.5 pg (27.0-33.0); Mean Corpuscular Volume 78.8 fL (80.0-98.0); Monocytes Absolute Auto 0.4 X10*3/uL (0.1-1.2); Monocytes Percent Auto 8.2 % (2-11); Neutrophils Absolute Auto 2.9 x10*3/uL (2.0-8.3); Neutrophils Percent Auto 53.5 % (45-73); Platelet Count 197 X10*3/uL (160-400); Red Blood Count 4.44 X10*6/uL (4.60-5.80); Red Cell Distribution Width 13.9 % (11.0-16.0); White Blood Count 5.3 X10*3/uL (4.8-10.8)
[2025-01-12 11:31] LABS: Alanine Aminotransferase 24 U/L (0-40); Albumin Level 4.3 g/dL (3.5-5.0); Alkaline Phosphatase 78 U/L (39-117); Anion Gap 13 (12-20); Aspartate Amino Transferase 24 U/L (5-37); Bilirubin Total 0.3 mg/dL (0.0-1.0); Blood Urea Nitrogen 17 mg/dL (9-16); Calcium 8.9 mg/dL (8.4-10.2); Carbon Dioxide 22 mmol/L (22-29); Chloride 109 mmol/L (96-108); Estimated Glomerular Filt Rate 55; Glucose Random 95 mg/dL (60-115); Potassium 4.4 mmol/L (3.3-5.1); Sodium 140 mmol/L (135-145); Total Protein 7.2 g/dL (6.5-8.0); Vitamin B12 393 pg/mL (200-900)
== END 2025-01-12 09:52 | disposition home or self-care (01) ==
LOC: HO.LAB 09:51
PROVIDERS: PCP Internal Medicine; Visit Provider Internal Medicine
DX: N28.9 Disorder of kidney and ureter, unspecified (principal); K21.9 Gastro-esophageal reflux disease without esophagitis; F03.90 Unspecified dementia, unspecified severity, without behavioral disturbance, psychotic disturbance, mood disturbance, and anxiety; N40.0 Benign prostatic hyperplasia without lower urinary tract symptoms; F33.41 Major depressive disorder, recurrent, in partial remission; I10 Essential (primary) hypertension
CPT/HCPCS: 36415; 80053; 82607; 85025

== ENCOUNTER 2025-02-25 09:08 | Outpatient (AMB) | payer MEDICARE, OTHER, SELFPAY ==
--- NOTE | 2025-02-25 09:12 | A.OFFPC_ITS ---
Vital Signs 02/25/25 09:16 Height 5 ft 6 in Weight 173 lb 4 oz BMI 28.0 BP 130/68 Blood Pressure Location Lt brachial Position Sitting Pulse 57 Pulse Source Pulse Oximeter Pulse Oximetry (%) 97 Oxygen Delivery Method Room Air Intake Visit Reasons: Follow Up Allergies Seasonal Allergies Allergy (Intermediate, Verified 02/25/25 09:21) sneezing No Known Drug Allergies [NO KNOWN DRUG ALLERGIES] Allergy (Unknown, Verified 02/25/25 09:21) NONE Medication List - Last Reconciled 02/25/25 by Elen Gamez MD aspirin (Adult Low Dose Aspirin) 81 mg PO DAILY citalopram 20 mg PO DAILY cyanocobalamin (vitamin B-12) 1,000 mcg PO DAILY 90 days ferrous sulfate 324 mg PO ONCE 90 days lisinopril 20 mg PO DAILY omeprazole 40 mg PO DAILY risperidone (Risperdal) 0.5 mg PO BEDTIME Tobacco use date assessed: 02/25/25 Fall risk assessment: No Falls in past year Last assessed Fall Risk: 02/25/25 Dental Screening Dental Screen Date: 02/25/25 Did you have a dental visit in the last 12 months?: No Did you have a dental problem in the last 6 months where you did not have access to dental care?: No Was dental information given to patient?: Patient declined HPI Follow Up HPI Details History - The patient is an 85-year-old male pre senting with dizziness and balance impairment. - Reports feeling lightheaded and unbala nced occasionally, which results in anxiety about falling. - Has experienced these symptoms intermi ttently, increased in recent times. - I have recommended use of walker for support when feeling unbalanced. - Blood pressure readings have remained generally stable. - Historically has stable anemia with re cent lab showing stability. - Experiences situational anxiety, which is managed with medication. - Known to become angry and upset easily without medication. Risperidone Patient have diagnosis of dementia but has not seen neurologist in a while He has a balance problem there is a risk for fall I will be booking him appointment to see a neurologist Medications - Citalopram for anxiety - Lisinopril for hypertension - Omeprazole for gastrointestinal issues - Risperidone as needed for agitation Problem List - Stable Anemia - Dizziness and Lightheadedness - Balance Impairment - Hypertension - Anxiety - Agitation - osteoarthritis multiple joints Diagnostic results - Labs: Kidney function stable; GFR at 5 5; liver enzymes within normal limits; Vitamin B12 level at 390; Anemia stable. Patient Instructions - Use walker as needed for balance to pr event falls. We will send script to medical supply store - Continue medications as prescribed, ut ilizing Risperidone only as needed for agitation. - Begin taking Vitamin B12 supplement. - Expect referral to see a neurologist f or further evaluation. - Return for follow-up in three months. Review of Systems General: No fever no chills neurological: No headaches ear nose throat: No sore throat no hearing difficulty no ear pain cardiovascular: No syncope, no chest pain, no palpitations gastrointestinal: No nausea vomiting or diarrhea skin: No new complaints Physical Exam general: No acute distress HEENT: No acute findings neck: Supple respiratory system: Able to talk in full sentences, no audible wheeze no stridor cardiovascular: S1-S2, blood pressure is 130/68 gastrointestinal: No pain extremities: No new findings USED [employer]: Alert awake oriented x3 motor sensory intact, occasional lightheadedness, dizziness, and unbalance, severe kyphosis, shuffling gait skin: Normal turgor [facility] Medical History Dyspnea on exertion Post-COVID syndrome COVID-19 virus infection Hypertension, essential Benign prostatic hyperplasia Depression, major, recurrent Surgical History History of orthopedic surgery Family History Father Unknown family medical history Mother Unknown family medical history Social History Housing: House Alcohol intake: current Alcohol intake frequency: holidays/special occasions only Patient Tobacco Use Status: Former Tobacco user Tobacco use type: Cigarette e-Cigarette/Vaping Use: Never Used service: No Current occupational status: retired Cognitive needs: No Hearing needs: No Vision needs: No Questionnaire PHQ-9 Over the last 2 weeks, how often have you been bothered by any of the following problems? 1. Little interest or pleasure in doing things: several days 2. Feeling down, depressed, or hopeless: several days 3. Trouble falling or staying asleep, or sleeping too much: not at all 4. Feeling tired or having little energy: several days 5. Poor appetite or overeating: not at all 6. Feeling bad about yourself - or that you are a failure or have let yourself or your family down: not at all 7. Trouble concentrating on things, such as reading the newspaper or watching television: not at all 8. Moving or speaking so slowly that other people could have noticed. Or the opposite - being so fidgety or restless that you have been moving around a lot more than usual: not at all 9. Thoughts that you would be better off or of hurting yourself in some way: not at all Total score: 3 Depression Screening Interpretation: Negative Depression Screening Done: Yes 78893 - PHQ-9 Billing: Yes Source: Developed by Drs. Eric Watson, Starr Cortes, Gildardo Rome and colleagues, with an educational zaria from [employer]. Thrive Questionnaire Date Thrive assessed: 02/25/25 I am a: Patient What is your living situation today?: I do not have a steady places to live I am temporarily staying with others Within the past 12 months, did the food you bought not last and you didn't have the money to get more?: Never true Within the past 12 months, did you worry whether your food would run out before you got money to buy more?: Never true Do you have trouble paying for medicines?: No Do you have trouble getting transportation to medical appointments?: Yes Do you have trouble paying your heating and electricity bill?: No Do you have trouble taking care of your child, family member or friend?: No Do you have trouble with day-to-day activities such as bathing, preparing meals, shopping, managing finances, etc.?: No Are you currently unemployed and looking for a job?: No Are you interested in more education?: No Please select the resources that you would like help with: None Currently or been in a relationship where the following occur: No concerns reported THRIVE Score: 2 AUDIT C Alcohol Use Questionnaire (AUDIT-C) 1. How often do you have a drink containing alcohol?: Monthly or less 2. How many drinks containing alcohol do you have on a typical day when you are drinking?: 1 or 2 3. How often do you have six or more drinks on one occasion?: Never Total Score: 1 Score Reviewed/Action Taken: Yes BENJAMIN-7 AMB Questionnaire BENJAMIN-7 Date BENJAMIN - 7 assessed: 02/25/25 Feeling nervous, anxious, or on edge: 1 = Several days Not being able to stop or control worryin = Several days Worrying too much about different things: 0 = Not at all Trouble relaxin = Several days Being so restless that it is hard to sit still: 0 = Not at all Becoming easily annoyed or irritable: 1 = Several days Feeling afraid as if something awful might happen: 0 = Not at all Total BENJAMIN-7 score (0-4 normal; 5-9 mild; 10-14 moderate; 15-21 severe): 4 Source: Developed by Drs. Eric Watson, Starr Cortes, Gildardo Rome and colleagues, with an educational zaria from [employer]. BENJAMIN-7 Assessment Billing BENJAMIN-7 Assessment Tool: BENJAMIN-7 Assessment 61826 Physical exam (Primary Care) Vital Signs: Last Vital Signs Pulse 57 02/25/25 09:16 BP 130/68 02/25/25 09:16 Pulse Ox 97 02/25/25 09:16 Oxygen Delivery Method Room Air 02/25/25 09:16 BMI result Body Mass Index 28.0 Tobacco/Smoking Status: Tobacco use Status Tobacco use date assessed 02/25/25 02/25/25 09:21 Patient Tobacco Use Status Former Tobacco user 02/25/25 09:13 Tobacco use type Cigarette 02/25/25 09:13 e-Cigarette/Vaping Use Never Used 02/25/25 09:13 PHQ-9: PHQ-9 Score PHQ-9: Total score 3 02/25/25 09:56 Depression Screening Interpretation: Negative Thrive Assessment: Date of Thrive Assessment Date Thrive assessed 02/25/25 02/25/25 09:21 Currently or been in a relationship where the following occur: No concerns reported Coding Level of Care Code Est Pt Level 4 (12946) Complex EM visit Add On G2211 Diagnoses Dementia, senile F03.90 Gait disturbance R26.9 Hypertension, essential I10 Recurrent major depressive disorder, in partial remission F33.41 Active/Remission status: in partial remission Benign prostatic hyperplasia without lower urinary tract symptoms N40.0 Lower urinary tract symptom presence: symptoms absent Chronic GERD K21.9 Nephropathy N28.9 Additional Codes BENJAMIN-7 Assessment Billing - BENJAMIN-7 Assessment Tool: BENJAMIN-7 Assessment 20842 ([id number]) PHQ-9 - 97960 - PHQ-9 Billing: Yes ([id number]) Assessment & Plan Assessment & Plan (1) Dementia, senile: Code(s): F03.90 - Unspecified dementia, unspecified severity, without behavioral disturbance, psychotic disturbance, mood disturbance, and anxiety Category: Medical (2) Gait disturbance: Code(s): R26.9 - Unspecified abnormalities of gait and mobility Category: Medical (3) Hypertension, essential: Code(s): I10 - Essential (primary) hypertension Category: Medical (4) Depression, major, recurrent: Code(s): F33.9 - Major depressive disorder, recurrent, unspecified Category: Medical Qualifiers: Active/Remission status: in partial remission Qualified Code(s): F33.41 - Major depressive disorder, recurrent, in partial remission (5) Benign prostatic hyperplasia: Code(s): N40.0 - Benign prostatic hyperplasia without lower urinary tract symptoms Category: Medical Qualifiers: Lower urinary tract symptom presence: symptoms absent Qualified Code(s): N40.0 - Benign prostatic hyperplasia without lower urinary tract symptoms (6) Chronic GERD: Code(s): K21.9 - Gastro-esophageal reflux disease without esophagitis Category: Medical (7) Nephropathy: Code(s): N28.9 - Disorder of kidney and ureter, unspecified Category: Medical Plan History - The patient is an 85-year-old male presenting with dizziness and balance impairment. - Reports feeling lightheaded and unbalanced occasionally, which results in anxiety about falling. - Has experienced these symptoms intermittently, increased in recent times. - I have recommended use of walker for support when feeling unbalanced. - Blood pressure readings have remained generally stable. - Historically has stable anemia with recent lab showing stability. - Experiences situational anxiety, which is managed with medication. - Known to become angry and upset easily without medication. Risperidone Patient have diagnosis of dementia but has not seen neurologist in a while He has a balance problem there is a risk for fall I will be booking him appointment to see a neurologist Medications - Citalopram for anxiety - Lisinopril for hypertension - Omeprazole for gastrointestinal issues - Risperidone as needed for agitation Problem List - Stable Anemia - Dizziness and Lightheadedness - Balance Impairment - Hypertension - Anxiety - Agitation - osteoarthritis multiple joints Diagnostic results - Labs: Kidney function stable; GFR at 55; liver enzymes within normal limits; Vitamin B12 level at 390; Anemia stable. Patient Instructions - Use walker as needed for balance to prevent falls. We will send script to medical supply store - Continue medications as prescribed, utilizing Risperidone only as needed for agitation. - Begin taking Vitamin B12 supplement. - Expect referral to see a neurologist for further evaluation. - Return for follow-up in three months. Orders: Referrals Neurology Referral F03.90 - Unspecified dementia, unspecified severity, without behavioral disturbance, psychotic disturbance, mood disturbance, and anxiety, R26.9 - Unspecified abnormalities of gait and mobility Medications: Refilled cyanocobalamin (vitamin B-12) 1,000 mcg PO DAILY 90 days 90 tabs 2RF
[2025-02-25 09:16] VITALS: BP 130/68; PULSE 57; O2SAT 97; BMI 28.0
== END 2025-02-25 09:47 | disposition home or self-care (01) ==
LOC: HO.HMCC 09:08
PROVIDERS: PCP Internal Medicine; Visit Provider Internal Medicine
DX: F03.90 Unspecified dementia, unspecified severity, without behavioral disturbance, psychotic disturbance, mood disturbance, and anxiety (principal); R26.9 Unspecified abnormalities of gait and mobility; I10 Essential (primary) hypertension; F33.41 Major depressive disorder, recurrent, in partial remission; N40.0 Benign prostatic hyperplasia without lower urinary tract symptoms; K21.9 Gastro-esophageal reflux disease without esophagitis; N28.9 Disorder of kidney and ureter, unspecified

== ENCOUNTER → 2025-02-25 09:08 | Outpatient (BNVA) | payer MEDICARE, OTHER, SELFPAY | PROVIDERS: PCP Internal Medicine; Visit Provider Internal Medicine | DX: R26.9 Unspecified abnormalities of gait and mobility (principal); F03.90 Unspecified dementia, unspecified severity, without behavioral disturbance, psychotic disturbance, mood disturbance, and anxiety; I10 Essential (primary) hypertension; F33.41 Major depressive disorder, recurrent, in partial remission; N40.0 Benign prostatic hyperplasia without lower urinary tract symptoms; K21.9 Gastro-esophageal reflux disease without esophagitis; N28.9 Disorder of kidney and ureter, unspecified; Z79.899 Other long term (current) drug therapy | CPT/HCPCS: 96127; 99212 ==

== ENCOUNTER 2025-04-24 11:56 | Outpatient (REF) | payer MEDICARE, OTHER, SELFPAY ==
--- NOTE | ~2025-04-24 | XR_ITS ---
EXAMINATION: XR CHEST 2 VIEWS HISTORY: R53.1 - Weakness COMPARISON: Comparison is made with the prior examination dated 06/25/2024. FINDINGS: PA and lateral views of the chest are submitted. The lungs are expanded and clear. There is no pleural effusion, pneumothorax, or pulmonary vascular congestion. The heart is normal in size. There is a moderate to large hiatal hernia.. There is degenerative disc disease of the spine. XR/XR chest 2V IMPRESSION: Moderate to large hiatal hernia. No acute cardiopulmonary abnormality. Electronically signed by: Eric Bautista MD 04/24/2025 01:30 PM EDT
== END 2025-04-24 11:57 | disposition home or self-care (01) ==
LOC: HO.HMGCX 11:56
PROVIDERS: PCP Internal Medicine; Visit Provider Physician Assistant
DX: R53.1 Weakness (principal)
CPT/HCPCS: 71046; 99212

== ENCOUNTER 2025-04-24 11:56 | Outpatient (AMB) | payer MEDICARE, OTHER, SELFPAY ==
--- NOTE | 2025-04-24 12:09 | MHC.OFFWIV ---
Intake Vital Signs 04/24/25 12:10 Height 5 ft 6 in Weight 161 lb BMI 26.0 BP 104/60 Blood Pressure Location Lt brachial Position Sitting Pulse 64 Pulse Source Pulse Oximeter Temp 97.7 F Temp Source Oral Pulse Oximetry (%) 100 Oxygen Delivery Method Room Air Intake Visit Reasons: EP Weak, not feeling well Intake Note: Patient here for weakness, diarrhea, just not feeling well overall. Patient Tobacco Use Status: Former Tobacco user Allergies Seasonal Allergies Allergy (Intermediate, Verified 04/24/25 12:22) sneezing No Known Drug Allergies [NO KNOWN DRUG ALLERGIES] Allergy (Unknown, Verified 04/24/25 12:22) NONE Do you need a note to return to daycare/school/sports/work: No HPI HPI Comments History of Present Illness Details This is an 85-year-old male with a past medical history of anemia, hypertension, BPH and dementia presenting with his for evaluation of generalized weakness over the past 2-3 weeks. Patient reports having an upper respiratory infection approximately 3 weeks ago that resolved however he will intermittently feel weak and ?I just cannot get the yard work done?. Patient states increased weakness and fatigue that is intermittent and he had a single episode of diarrhea today. Patient denies having any fevers, chills, shortness for breath, chest pain, dysuria, urinary frequency or abdominal pain. Patient states he has a mild cough, but attributes this to seasonal allergies which are currently untreated. The patient's states that he usually takes Claritin however has not been taking it since the time of his upper respiratory infection. [facility] Medical History Dyspnea on exertion Post-COVID syndrome COVID-19 virus infection Hypertension, essential Benign prostatic hyperplasia Depression, major, recurrent Surgical History History of orthopedic surgery Family History Father Unknown family medical history Mother Unknown family medical history Social History Housing: House Alcohol intake: current Alcohol intake frequency: holidays/special occasions only Patient Tobacco Use Status: Former Tobacco user Tobacco use type: Cigarette e-Cigarette/Vaping Use: Never Used service: No Current occupational status: retired Cognitive needs: No Hearing needs: No Vision needs: No Review of Systems Const All systems reviewed & are unremarkable except as noted in HPI and below Denies chills, Reports fatigue, Denies fever(s) and Reports weakness Eyes Reports no additional complaints ENT Reports no additional complaints Card Reports no additional complaints and Denies dyspnea Resp Reports no additional complaints, Reports cough, Denies dyspnea and Denies wheezing GI Reports no additional complaints Reports no additional complaints, Denies hematuria, Denies difficulty urinating, Denies dysuria and Denies urinary frequency Musc Reports no additional complaints Skin/Breast Reports system reviewed and no additional complaints, except as documented Neuro Reports no additional complaints and Reports weakness Psych Reports no additional complaints Endo Reports no additional complaints and Reports fatigue Gary/Lymph Reports no additional complaints Aller/Immun Reports no additional complaints and Denies wheezing Physical Exam Vital Signs: Last Vital Signs Temp 97.7 F 04/24/25 12:10 Pulse 64 04/24/25 12:10 BP 104/60 04/24/25 12:10 Pulse Ox 100 04/24/25 12:10 Oxygen Delivery Method Room Air 04/24/25 12:10 BMI result Body Mass Index 26.0 Patient is afebrile and is not hypoxic. Const General: cooperative, healthy appearing, comfortable, no acute distress, well developed, alert, awake and Physically active; No ill appearing Nutritional Appearance: well nourished Orientation/consciousness: oriented to person and oriented to place Limitations: other limitations HEENT Head: Yes normal to inspection and Yes normocephalic Ears: hearing grossly normal bilaterally, external ears normal and EAC's normal Mouth: Normal oral and palatal mucosa present and moist mucous membranes Throat: Yes posterior oropharynx normal Eyes General: appearance normal, both eyes and all related structures Neck Lymphatic: no lymphadenopathy noted Resp Effort & Inspection: normal respiratory effort, no audible wheezes and Actively coughing Auscultation: clear to auscultation bilaterally Cardio Rate: regular rate Rhythm: regular rhythm GI Palpation (GI): Soft to palpation, nontender and no guarding Percussion: Yes normal to percussion Skin General skin exam: no rashes or lesions noted Neuro General: oriented to person and oriented to place Psych Appearance: grossly normal Mental Status: mental status grossly normal Thought content: Normal thought content present Insight: Fair insight present (Psych) Judgement: Fair judgement present (Psych) Results Reviewed Results Reviewed: CXR demonstrates hiatal hernia previously seen. Assessment & Plan Assessment & Plan (1) Weakness: Comment: Patient states he has had a cough with increased frequency since stopping his Claritin 3 weeks ago. There are no acute findings noted on chest x-ray. Patient is well-appearing and vital signs are reassuring. Code(s): R53.1 - Weakness Plan: Restart Claritin once daily and follow up at the walk-in or with your primary care physician for any worsening symptoms. Orders: Orders XR chest 2V Today R53.1 - Weakness Coding Level of Care Code Est Pt Level 3 (46420) Diagnoses Weakness R53.1 Time Spent (min) 20
[2025-04-24 12:10] VITALS: BP 104/60; PULSE 64; TEMP 36.5; O2SAT 100; BMI 26.0
== END 2025-04-24 13:24 | disposition home or self-care (01) ==
PROVIDERS: PCP Internal Medicine; Visit Provider Physician Assistant
DX: R53.1 Weakness (principal)

== ENCOUNTER → 2025-04-24 13:03 | Outpatient (BNV) | payer MEDICARE, OTHER, SELFPAY | PROVIDERS: PCP Internal Medicine; Visit Provider Radiology Diagnostic Radiology | DX: K44.9 Diaphragmatic hernia without obstruction or gangrene (principal) | CPT/HCPCS: 71046 ==

== ENCOUNTER 2025-07-23 14:13 | Outpatient (AMB) | payer MEDICARE, OTHER, SELFPAY ==
--- NOTE | 2025-07-23 14:36 | MHC.OFFVIS ---
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 Required: No Accompanied by: Spouse Allergies Seasonal Allergies Allergy (Intermediate, Verified 07/23/25 14:42) sneezing No Known Drug Allergies (NO KNOWN DRUG ALLERGIES) Allergy (Unknown, Verified 04/24/25 12:22) NONE Medication List - Last Reconciled 07/23/[address] Torres NP aspirin (Adult Low Dose Aspirin) 81 mg PO DAILY citalopram 20 mg PO DAILY ferrous sulfate 324 mg PO ONCE 90 days lisinopril 20 mg PO DAILY omeprazole 40 mg PO DAILY risperidone 0.25 mg PO BEDTIME walker Use as directed HPI Comments Details: This is a 85-year-old male patient coming in for an overdue follow-up visit, accompanied by his . Patient was previously seen in the office a year ago for low heart rate for which patient underwent a Holter study. Patient at that time it also reported shortness of breath on exertion for which patient was supposed to undergo a myocardial perfusion study and an echo however, patient only completed the echocardiogram. Today, patient reports that he still has ongoing shortness of breath on exertion which is getting progressive. Patient is otherwise denying any cardiac symptoms of exertional chest pain, palpitations, dizziness, orthopnea, PND, leg edema, presyncope, or syncope. Patient does report that he has been feeling weak recently due to ongoing diarrhea that has improved now. Patient states that he had a fall about a week ago in related to this. Denies any seizure activity. Otherwise his main complaint today has been arthritic pain in all his joints. [facility] Medical History Dyspnea on exertion Post-COVID syndrome COVID-19 virus infection Hypertension, essential Benign prostatic hyperplasia Depression, major, recurrent Surgical History History of orthopedic surgery Family History Father Unknown family medical history Mother Unknown family medical history Social History Housing: House Alcohol intake: current Alcohol intake frequency: holidays/special occasions only Patient Tobacco Use Status: Former Tobacco user Tobacco use type: Cigarette e-Cigarette/Vaping Use: Never Used service: No Current occupational status: retired Cognitive needs: No Hearing needs: No Vision needs: No Review of Systems Const Denies daytime sleepiness, Denies difficulty sleeping, Denies snoring, Denies stops breathing during sleep and Denies weakness Card Denies chest pain, Denies rapid heart rate, Denies irregular heart rhythm, Denies claudication, Denies leg edema, Denies lightheadedness, Denies palpitations, Reports dyspnea, Reports dyspnea on exertion, Denies orthopnea, Denies paroxysmal nocturnal dyspnea and Denies slow heart rate Resp Denies cough, Reports dyspnea, Reports dyspnea on exertion and Denies snoring GI Reports no additional complaints, Denies hematochezia, Denies change in stool character and Denies dyspepsia Musc Denies abnormal gait, Denies muscle weakness and Denies numbness Neuro Denies abnormal gait, Denies numbness and Denies weakness Endo Denies palpitations Physical Exam Vital Signs: Last Vital Signs Pulse 56 07/23/25 14:38 BP 100/76 07/23/25 14:38 BMI result Body Mass Index 25.8 Const General: cooperative, comfortable and no acute distress Orientation/consciousness: patient oriented x3 HEENT Head: Yes normal to inspection Neck Neck: Yes normal visual inspection, Yes trachea midline and Yes supple Chest Chest palpation & inspection: normal inspection of the chest Resp Effort & Inspection: normal respiratory effort Auscultation: clear to auscultation bilaterally, no crackles, no rales, no rhonchi and no wheezes Cardio Jugular venous distension: no JVD Palpation: normal PMI Rate: bradycardic Rhythm: regular rhythm Heart sounds: S1 normal heart sound present, S2 normal heart sound present, no click, no gallops, no murmurs and no rubs Peripheral pulses: Peripheral pulses 2+ throughout GI Inspection: Yes normal to inspection Palpation (GI): Soft to palpation Auscultation: normal bowel sounds Skin General skin exam: no rashes or lesions noted Neuro General: patient oriented x3 Extrem General: Yes normal to inspection, No no pedal edema and No calf tenderness Psych Appearance: grossly normal Mental Status: mental status grossly normal Office Procedures EKG Details: EKG today shows sinus bradycardia, rate 56 beats per minute, short DC at 106 milliseconds, poor R-wave progression in V2 suggesting septal infarct, [place]. [id number], Complete Assessment & Plan Assessment & Plan (1) Dyspnea on exertion: Code(s): R06.09 - Other forms of dyspnea Category: Medical Plan: 08/20/2024-echo study showed a normal LV systolic function with an ejection fraction between 60-65% with pseudo normal filling pattern, moderately dilated left atrium. 08/20/2024-echo study showed a underlying sinus rhythm with an average heart rate of 59 beats per minute, with supraventricular ectopy a burden of 1.4%, and rare ventricular ectopies. No significant pauses. Given his ongoing symptom of shortness of breath, patient will undergo an ischemic workup with myocardial perfusion study with a vasodilating agent as patient is not able to walk on his treadmill. Further testing based on findings. (2) Bradycardia: Code(s): R00.1 - Bradycardia, unspecified Category: Medical Plan: As above. (3) Hypertension, essential: Code(s): I10 - Essential (primary) hypertension Category: Medical Plan: Blood pressure today is low normal. Patient on lisinopril. Continue the same for now and if patient continues to have lower blood pressures then we can plan on slowly taken him off this. Advised heart healthy diet, regular exercise as tolerated, med compliance, and management of vascular risk factors. Advised using his walker for mobility. Discussed fall precautions. Follow up after stress test. In the interim, patient will call the office with any concerns or change in symptoms. This note was generated using voice recognition software. While every effort has been made to ensure accuracy and proper assistant dean, there may be occasional errors that could affect the content or meaning of the described symptoms. Orders: Orders AMB EKG-In Office Today R06.09 - Other forms of dyspnea CA lexiscan stress w camille Today R06.09 - Other forms of dyspnea Coding Level of Care Code Est Pt Level 4 (90745) Complex EM visit Add On G2211 Diagnoses Dyspnea on exertion R06.09 Bradycardia R00.1 Hypertension, essential I10 CPT Codes EKG - CPT: 06653-[id number], Complete ([id number]) Time Spent (min) 31 Comment Time spent in reviewing the chart, test results, assessment, counseling and documentation.
[2025-07-23 14:38] VITALS: BP 100/76; PULSE 56; BMI 25.8
== END 2025-07-23 15:07 | disposition home or self-care (01) ==
LOC: HO.HCS 14:14
PROVIDERS: PCP Internal Medicine
DX: R06.09 Other forms of dyspnea (principal); R00.1 Bradycardia, unspecified; I10 Essential (primary) hypertension
CPT/HCPCS: 93010; 99214; G2211

== ENCOUNTER → 2025-07-23 14:13 | Outpatient (BNVA) | payer MEDICARE, OTHER, SELFPAY | PROVIDERS: PCP Internal Medicine | DX: I10 Essential (primary) hypertension (principal); R06.09 Other forms of dyspnea; R00.1 Bradycardia, unspecified | CPT/HCPCS: 93005; 99212 ==

== ENCOUNTER 2025-08-05 11:28 | Outpatient (AMB) | payer MEDICARE, OTHER, SELFPAY ==
--- NOTE | 2025-08-05 11:31 | A.OFFPC_ITS ---
Vital Signs 08/05/25 11:34 Height 5 ft 6 in Weight 162 lb BMI 26.1 BP 132/70 Blood Pressure Location Rt brachial Position Sitting Pulse 61 Pulse Source Pulse Oximeter Pulse Oximetry (%) 96 Intake Visit Reasons: Annual PE - see comments Allergies Seasonal Allergies Allergy (Intermediate, Verified 08/05/25 11:34) sneezing No Known Drug Allergies (NO KNOWN DRUG ALLERGIES) Allergy (Unknown, Verified 08/05/25 11:34) NONE Medication List - Last Reconciled 08/05/25 by Elen Gamez MD aspirin (Adult Low Dose Aspirin) 81 mg PO DAILY citalopram 20 mg PO DAILY ferrous sulfate 324 mg PO ONCE 90 days lisinopril 20 mg PO DAILY omeprazole 40 mg PO DAILY risperidone 0.25 mg PO BEDTIME walker Use as directed Tobacco use date assessed: 02/25/25 Fall risk assessment: 1 Fall in past year Last assessed Fall Risk: 08/05/25 Dental Screening Dental Screen Date: 02/25/25 HPI Annual PE - see comments HPI Details History of Present Illness The patient is an 85-year-old male presenting for a wellness visit. Multiple joint osteoarthritis: Patient is complaining of severe pain all over his body sometimes he is not able to sleep and get out of bed in the morning He is taking Tylenol without relief Dementia with Agitation: - The patient suffers from dementia, whi ch at times causes agitation. - The agitation is managed with risperid one 0.25 mg as needed. Hypertension: - The patient has a history of hypertens ion. - It is managed effectively with lisinop ril 20 mg. Gastroesophageal Reflux Disease: - Patient takes omeprazole 40 mg for the management of gastroesophageal reflux disease. Anxiety and Depression: - The patient's anxiety and depression a re stable with citalopram 20 mg daily. 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 - He is on iron supplement therapy due t o this diagnosis. 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 Medications - Risperidone 0.25 mg as needed for audi ntia with agitation - Lisinopril 20 mg for hypertension - Omeprazole 40 mg for gastroesophageal reflux disease - Citalopram 20 mg daily for anxiety and depression - Aspirin (dose not specified) - Iron supplement for anemia Patient Instructions - complete blood test today Continue medications I have sent hydrocodone acetaminophen to be taken at night as needed only 30 tablets sent Side effects of medication were reviewed with the patient and his who is a primary domestic cleaner It may cause constipation and drowsiness there is a risk of fall. Follow-up 3 months Review of Systems - General: No fever no chills - Neurological: No headaches no dizzin ess - Ear nose throat: No sore throat no hearing difficulty no ear pain - Cardiovascular: No syncope, no chest pain, no palpitations - Gastrointestinal: No nausea vomiting or diarrhea - Endocrine: No polyuria polydipsia no heat intolerance Physical Exam General: Cooperative, healthy appearing, comfortable, no acute distress Orientation: Patient oriented x3 Limitations: Very unsteady on his feet Head: Normal to inspection Ears: Within normal limit visually Nose: Normal external nose present Face and sinus: Normal facial exam Eyes: Appearance normal, extraocular movement intact pupils reactive Neck: Normal visual inspection and supple Respiratory: Normal respiratory effort and able to speak in complete sentences. Clear to auscultation, no stridor Cardiovascular: S1 and S2 RRR GI: Normal to inspection. Soft to palpation and nontender Skin: Turgor normal, no acute findings Neuro: Patient oriented x3, motor age-appropriate, gait unstable Extremities: Normal to inspection Patient was informed and verbally consented to the use of an ambient scribe for clinic note documentation during this visit. [facility] Medical History Dyspnea on exertion Post-COVID syndrome COVID-19 virus infection Hypertension, essential Benign prostatic hyperplasia Depression, major, recurrent Surgical History History of orthopedic surgery Family History Father Unknown family medical history Mother Unknown family medical history Social History Housing: House Alcohol intake: current Alcohol intake frequency: holidays/special occasions only Patient Tobacco Use Status: Former Tobacco user Tobacco use type: Cigarette e-Cigarette/Vaping Use: Never Used service: No Current occupational status: retired Cognitive needs: No Hearing needs: No Vision needs: No Questionnaire PHQ-9 Over the last 2 weeks, how often have you been bothered by any of the following problems? 1. Little interest or pleasure in doing things: several days 2. Feeling down, depressed, or hopeless: several days 3. Trouble falling or staying asleep, or sleeping too much: not at all 4. Feeling tired or having little energy: several days 5. Poor appetite or overeating: not at all 6. Feeling bad about yourself - or that you are a failure or have let yourself or your family down: not at all 7. Trouble concentrating on things, such as reading the newspaper or watching television: not at all 8. Moving or speaking so slowly that other people could have noticed. Or the opposite - being so fidgety or restless that you have been moving around a lot more than usual: not at all 9. Thoughts that you would be better off or of hurting yourself in some way: not at all Total score: 3 Depression Screening Interpretation: Negative Depression Screening Done: Yes 52294 - PHQ-9 Billing: Yes Source: Developed by Drs. Eric Watson, Starr Cortes, Gildardo Rome and colleagues, with an educational zaria from [employer]. Thrive Questionnaire Date Thrive assessed: 02/25/25 I am a: Patient What is your living situation today?: I do not have a steady places to live I am temporarily staying with others Within the past 12 months, did the food you bought not last and you didn't have the money to get more?: Never true Within the past 12 months, did you worry whether your food would run out before you got money to buy more?: Never true Do you have trouble paying for medicines?: No Do you have trouble getting transportation to medical appointments?: Yes Do you have trouble paying your heating and electricity bill?: No Do you have trouble taking care of your child, family member or friend?: No Do you have trouble with day-to-day activities such as bathing, preparing meals, shopping, managing finances, etc.?: No Are you currently unemployed and looking for a job?: No Are you interested in more education?: No Please select the resources that you would like help with: None Currently or been in a relationship where the following occur: No concerns reported THRIVE Score: 2 AUDIT C Alcohol Use Questionnaire (AUDIT-C) 1. How often do you have a drink containing alcohol?: Monthly or less 2. How many drinks containing alcohol do you have on a typical day when you are drinking?: 1 or 2 3. How often do you have six or more drinks on one occasion?: Never Total Score: 1 BENJAMIN-7 AMB Questionnaire BENJAMIN-7 Date BENJAMIN - 7 assessed: 02/25/25 Feeling nervous, anxious, or on edge: 1 = Several days Not being able to stop or control worryin = Several days Worrying too much about different things: 0 = Not at all Trouble relaxin = Several days Being so restless that it is hard to sit still: 0 = Not at all Becoming easily annoyed or irritable: 1 = Several days Feeling afraid as if something awful might happen: 0 = Not at all Total BENJAMIN-7 score (0-4 normal; 5-9 mild; 10-14 moderate; 15-21 severe): 4 Source: Developed by Drs. Eric Watson, Starr Cortes, Gildardo Rome and colleagues, with an educational zaria from [employer]. BENJAMIN-7 Assessment Billing BENJAMIN-7 Assessment Tool: BENJAMIN-7 Assessment 35558 Physical exam (Primary Care) Vital Signs: Last Vital Signs Pulse 61 08/05/25 11:34 BP 132/70 08/05/25 11:34 Pulse Ox 96 08/05/25 11:34 BMI result Body Mass Index 26.1 Tobacco/Smoking Status: Tobacco use Status Tobacco use date assessed 02/25/25 08/05/25 11:31 Patient Tobacco Use Status Former Tobacco user 08/05/25 11:31 Tobacco use type Cigarette 08/05/25 11:31 e-Cigarette/Vaping Use Never Used 08/05/25 11:31 PHQ-9: PHQ-9 Score PHQ-9: Total score 3 08/05/25 12:39 Depression Screening Interpretation: Negative Thrive Assessment: Date of Thrive Assessment Date Thrive assessed 02/25/25 08/05/25 11:31 Currently or been in a relationship where the following occur: No concerns reported Immunizations pneumoc 20-saurav conj-dip cr(PF) 0.5 mL IM syringe Performing Provider: Elen Gamez MD Performing Location: [facility] Administered by: Hunter Rangel CMA on 08/05/25 12:19 Dose Route Admin Location Dispensed Lot Number Expiration Date NDC Medicaid Collection Specialist 0.5 mL IM Left Deltoid 0.5 mL [id number] 05/01/26 3711-0195-97 [employer] Total Dispensed Waste 0.5 mL 0 % VIS Given Date VIS Provided VIS Publication Date 08/05/25 Single Vaccine 25 Eligibility Eligibility Date Funding Source Not [facility] Eligible 08/05/25 Private Coding Level of Care Code Est Pt Level 4 (83973) Est Pt Prev Care 40-64y(16564) Diagnoses Encounter for general adult medical examination with abnormal findings Z00.01 Hypertension, essential I10 Dementia, senile F03.90 Gait disturbance R26.9 Recurrent major depressive disorder, in partial remission F33.41 Active/Remission status: in partial remission Benign prostatic hyperplasia without lower urinary tract symptoms N40.0 Lower urinary tract symptom presence: symptoms absent Chronic GERD K21.9 Nephropathy N28.9 Additional Codes BENJAMIN-7 Assessment Billing - BENJAMIN-7 Assessment Tool: BENJAMIN-7 Assessment 73547 ([id number]) PHQ-9 - 08733 - PHQ-9 Billing: Yes ([id number]) Assessment & Plan Assessment & Plan (1) Encounter for general adult medical examination with abnormal findings: Code(s): Z00.01 - Encounter for general adult medical examination with abnormal findings Category: Medical (2) Hypertension, essential: Code(s): I10 - Essential (primary) hypertension Category: Medical (3) Dementia, senile: Code(s): F03.90 - Unspecified dementia, unspecified severity, without behavioral disturbance, psychotic disturbance, mood disturbance, and anxiety Category: Medical (4) Gait disturbance: Code(s): R26.9 - Unspecified abnormalities of gait and mobility Category: Medical (5) Depression, major, recurrent: Code(s): F33.9 - Major depressive disorder, recurrent, unspecified Category: Medical Qualifiers: Active/Remission status: in partial remission Qualified Code(s): F33.41 - Major depressive disorder, recurrent, in partial remission (6) Benign prostatic hyperplasia: Code(s): N40.0 - Benign prostatic hyperplasia without lower urinary tract symptoms Category: Medical Qualifiers: Lower urinary tract symptom presence: symptoms absent Qualified Code(s): N40.0 - Benign prostatic hyperplasia without lower urinary tract symptoms (7) Chronic GERD: Code(s): K21.9 - Gastro-esophageal reflux disease without esophagitis Category: Medical (8) Nephropathy: Code(s): N28.9 - Disorder of kidney and ureter, unspecified Category: Medical Plan History of Present Illness The patient is an 85-year-old male presenting for a wellness visit. Multiple joint osteoarthritis: Patient is complaining of severe pain all over his body sometimes he is not able to sleep and get out of bed in the morning He is taking Tylenol without relief Dementia with Agitation: - The patient suffers from dementia, which at times causes agitation. - The agitation is managed with risperidone 0.25 mg as needed. Hypertension: - The patient has a history of hypertension. - It is managed effectively with lisinopril 20 mg. Gastroesophageal Reflux Disease: - Patient takes omeprazole 40 mg for the management of gastroesophageal reflux disease. Anxiety and Depression: - The patient's anxiety and depression are stable with citalopram 20 mg daily. 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 - He is on iron supplement therapy due to this diagnosis. 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 Medications - Risperidone 0.25 mg as needed for dementia with agitation - Lisinopril 20 mg for hypertension - Omeprazole 40 mg for gastroesophageal reflux disease - Citalopram 20 mg daily for anxiety and depression - Aspirin (dose not specified) - Iron supplement for anemia Patient Instructions - complete blood test today Continue medications I have sent hydrocodone acetaminophen to be taken at night as needed only 30 tablets sent Side effects of medication were reviewed with the patient and his who is a primary domestic cleaner It may cause constipation and drowsiness there is a risk of fall. Follow-up 3 months Orders: Orders Pneumococcal 20 Immunization Today Z23 - Encounter for immunization Medications: New hydrocodone-acetaminophen 5-325 mg Partial Fill upon patient request. 1 tab PO BEDTIME PRN 30 tabs 0RF pain
[2025-08-05 11:34] VITALS: BP 132/70; PULSE 61; O2SAT 96; BMI 26.1
== END 2025-08-05 12:42 | disposition home or self-care (01) ==
LOC: HO.HMCC 11:29
PROVIDERS: PCP Internal Medicine; Visit Provider Internal Medicine
DX: Z00.01 Encounter for general adult medical examination with abnormal findings (principal); I10 Essential (primary) hypertension; F03.90 Unspecified dementia, unspecified severity, without behavioral disturbance, psychotic disturbance, mood disturbance, and anxiety; R26.9 Unspecified abnormalities of gait and mobility; F33.41 Major depressive disorder, recurrent, in partial remission; N40.0 Benign prostatic hyperplasia without lower urinary tract symptoms; K21.9 Gastro-esophageal reflux disease without esophagitis; N28.9 Disorder of kidney and ureter, unspecified; Z23 Encounter for immunization

== ENCOUNTER 2025-08-05 11:28 | Outpatient (REF) | payer MEDICARE, OTHER, SELFPAY ==
[2025-08-05 14:00] LABS: MANUAL DIFF FLAG NO
[2025-08-05 14:05] LABS: Hematocrit 39.5 % (42.0-52.0); Hemoglobin 13.3 g/dl (14.0-18.0); Imm Gran Abs Auto 0.02 X10*3/uL (0.00-0.03); Imm Gran Pct Auto 0.3 % (0.0-0.4); Lymphocytes Absolute Auto 1.9 X10*3/uL (1.2-4.9); Mean Corpuscular HGB Conc 33.7 g/dl (31.0-36.0); Mean Corpuscular Hemoglobin 27.7 pg (27.0-33.0); Mean Corpuscular Volume 82.1 fL (80.0-98.0); NRBC Abs Auto 0.000 X10*3/uL (0.0-0.012); NRBC Pct Auto 0.0 /100WBC (0.0-0.2); Platelet Count 161 X10*3/uL (160-400); Red Blood Count 4.81 X10*6/uL (4.60-5.80); White Blood Count 6.0 X10*3/uL (4.8-10.8)
[2025-08-05 16:02] LABS: Alanine Aminotransferase 20 U/L (0-40); Albumin Level 4.4 g/dL (3.5-5.0); Alkaline Phosphatase 72 U/L (39-117); Anion Gap 11 (12-20); Aspartate Amino Transferase 20 U/L (5-37); Blood Urea Nitrogen 13 mg/dL (9-16); Calcium 9.1 mg/dL (8.4-10.2); Carbon Dioxide 27 mmol/L (22-29); Chloride 107 mmol/L (96-108); Estimated Glomerular Filt Rate 50; Ferritin 82 ng/mL (20-250); Potassium 4.0 mmol/L (3.3-5.1); Sodium 141 mmol/L (135-145); Total Protein 6.7 g/dL (6.5-8.0)
== END 2025-08-05 11:29 | disposition home or self-care (01) ==
LOC: HO.HMGCLDS 11:28
PROVIDERS: PCP Internal Medicine; Visit Provider Internal Medicine
DX: Z00.01 Encounter for general adult medical examination with abnormal findings (principal); Z23 Encounter for immunization; I10 Essential (primary) hypertension; F33.41 Major depressive disorder, recurrent, in partial remission; F03.A18 Unspecified dementia, mild, with other behavioral disturbance; K21.9 Gastro-esophageal reflux disease without esophagitis; N28.9 Disorder of kidney and ureter, unspecified; D63.8 Anemia in other chronic diseases classified elsewhere; F03.90 Unspecified dementia, unspecified severity, without behavioral disturbance, psychotic disturbance, mood disturbance, and anxiety; R26.9 Unspecified abnormalities of gait and mobility; N40.0 Benign prostatic hyperplasia without lower urinary tract symptoms; Z79.82 Long term (current) use of aspirin; Z79.899 Other long term (current) drug therapy
CPT/HCPCS: 36415; 80053; 82728; 83721; 84443; 85025; 90471; 90677; 96127; 99212; 99397

== ENCOUNTER 2025-10-11 21:03 | Emergency (ER) | payer MEDICARE, OTHER, SELFPAY ==
--- NOTE | ~2025-10-11 | CT_ITS ---
CLINICAL HISTORY: elderly fall CT abdomen and pelvis without contrast Comparison: CT/REG - CT CHEST WO IV CON - 10/12/25 01:12 EST Findings: Study limited due to lack of intravenous contrast. Specifically, evaluation of the vascular tree, solid abdominal organs, and gastrointestinal tract be limited without the administration of intravenous contrast. This is especially true given the clinical history of trauma. Please refer to the patient's separately dictated CT of the chest for information regarding findings within the lower thorax. CT abdomen: No compression fracture seen within the lumbar spine. Mild convex right upper lumbar curvature. Layering calcified gallstones are seen within the gallbladder measuring up to 6 mm in size. No gallbladder wall thickening or pericholecystic fluid. No acute findings seen within the unenhanced liver, spleen, pancreas, or adrenal glands. This is a 3 cm exophytic cyst off the left kidney. 5 mm lower pole left renal calculus is seen. No hydronephrosis. Unenhanced right kidney is unremarkable. Large hiatal hernia as described on the patient's CT of the chest. No dilated small bowel. No free fluid or free air. CT pelvis: Appendix is normal. No colonic wall thickening or pericolonic inflammatory stranding. Portions of the colon are seen along the superior aspect of bilateral inguinal hernias. No obstructive phenomenon seen. Urinary bladder is moderately distended. No free fluid or free air. No acute fractures about the bony pelvis. Moderate degenerative change of both hip joints, [id number]. IMPRESSION: 1. No acute traumatic findings given the limitations of a noncontrast study. 2. Cholelithiasis without CT findings of cholecystitis. 3. Nonobstructing left renal calculus. This document has been electronically signed by: Kenny Webster MD on 10/12/2025 02:42:11
--- NOTE | ~2025-10-11 | CT_ITS ---
CLINICAL HISTORY: head injury CT head without contrast Comparison: None provided Findings: Generalized cerebral and cerebellar atrophy, not unexpected for a patient of this age. The size and shape of the ventricular system is within normal limits for this degree of atrophy. Mild areas of low-attenuation are seen within the periventricular deep white matter. [place]-white differentiation is preserved. No midline shift or mass effect. No intracranial hemorrhage. No calvarial fractures. IMPRESSION: 1. No acute intracranial findings. Specifically, no fracture or intracranial hemorrhage. This document has been electronically signed by: Kenny Webster MD on 10/12/2025 02:31:47
--- NOTE | ~2025-10-11 | CT_ITS ---
CLINICAL HISTORY: fell CT chest without contrast Comparison: CT - CT ABDOMEN PELVIS WO IV CON - 10/12/25 01:12 EST CR/SR - XR CHEST 2 VIEWS - 04/24/25 13:14 EDT Findings: Study limited due to lack of intravenous contrast. Specifically, sensitivity and specificity for acute traumatic injury to the vascular tree, solid abdominal organs, and gastrointestinal tract be limited without IV contrast administration. [id number] emphysematous changes throughout the lungs. No pleural effusion or pneumothorax. Juxtapleural areas of atelectasis or scarring are seen within the lung bases bilaterally. 5 mm pleural-based lymph node abutting the right major fissure. No noncontrast CT findings of acute aortic injury. No mediastinal hematoma. Heart size within normal limits. Large hiatal hernia is seen. This is a mixed sliding and paraesophageal hiatal hernia with the majority of the stomach being intrathoracic in location. This displaces the heart anteriorly. No free fluid or free air within the upper abdomen. No compression fracture seen within the thoracic spine. No rib fractures. IMPRESSION: 1. Study limited due to lack of intravenous contrast. 2. Given that limitation, no acute traumatic finding. 3. Large hiatal hernia as above. This document has been electronically signed by: Kenny Webster MD on 10/12/2025 02:37:41
--- NOTE | ~2025-10-11 | CT_ITS ---
CLINICAL HISTORY: trauma CT cervical spine without contrast Comparison: None provided Findings: Bony alignment of the cervical vertebral bodies is anatomic. No fracture or prevertebral soft tissue swelling is identified. 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 Upper airway is patent. No apical pneumothorax. IMPRESSION: 1. No acute fracture. 2. Multilevel degenerative change. This document has been electronically signed by: Kenny Webster MD on 10/12/2025 02:34:01
[2025-10-11 21:08] VITALS: BP 101/34; PULSE 61; O2SAT 100
[2025-10-11 21:17] VITALS: BP 111/61; PULSE 58; RESP 14; TEMP 36.5; O2SAT 98; BMI 25.9
--- NOTE | 2025-10-11 21:19 | ECG_ITS ---
Test Reason : FALL Blood Pressure : */* mmHG Vent. Rate : 59 BPM Atrial Rate : 59 BPM P-R Int : 108 ms QRS Dur : 96 ms QT Int : 452 ms P-R-T Axes : 45 57 37 degrees QTcB Int : 447 ms Sinus bradycardia with short RI Otherwise normal ECG When compared with ECG of 27-Feb-2021 15:08, No significant changes seen Referred By: Generic ED Physician Electronically Signed By: DALIA CHAVARRIA
[2025-10-11 21:23] LABS: Glucose, Whole Blood 127 mg/dL (60-115)
[2025-10-11 21:31] LABS: MANUAL DIFF FLAG NO
[2025-10-11 21:33] LABS: Hematocrit 38.4 % (42.0-52.0); Hemoglobin 12.9 g/dl (14.0-18.0); Imm Gran Abs Auto 0.04 X10*3/uL (0.00-0.03); Imm Gran Pct Auto 0.6 % (0.0-0.4); Lymphocytes Absolute Auto 1.5 X10*3/uL (1.2-4.9); Mean Corpuscular HGB Conc 33.6 g/dl (31.0-36.0); Mean Corpuscular Hemoglobin 27.7 pg (27.0-33.0); Mean Corpuscular Volume 82.6 fL (80.0-98.0); NRBC Abs Auto 0.000 X10*3/uL (0.0-0.012); NRBC Pct Auto 0.0 /100WBC (0.0-0.2); Platelet Count 169 X10*3/uL (160-400); Red Blood Count 4.65 X10*6/uL (4.60-5.80); White Blood Count 6.5 X10*3/uL (4.8-10.8)
[2025-10-11 21:49] LABS: Anion Gap 12 (12-20); Calcium 9.0 mg/dL (8.4-10.2); Carbon Dioxide 22 mmol/L (22-29); Chloride 110 mmol/L (96-108); Potassium 3.9 mmol/L (3.3-5.1); Sodium 140 mmol/L (135-145)
[2025-10-11 21:53] LABS: Alanine Aminotransferase 15 U/L (0-40); Albumin Level 4.2 g/dL (3.5-5.0); Alkaline Phosphatase 74 U/L (39-117); Aspartate Amino Transferase 19 U/L (5-37); Blood Urea Nitrogen 19 mg/dL (9-16); Creatinine Clr Calc Pharmacy 31.5; Estimated Glomerular Filt Rate 41; Magnesium 2.1 mg/dL (1.6-2.6); Total Protein 6.4 g/dL (6.5-8.0); Troponin-I High Sensitivity < 2.7 ng/L (<3.5-35.0)
[2025-10-11 22:55] VITALS: BP 122/61; PULSE 57; TEMP 36.7; O2SAT 98
--- NOTE | 2025-10-11 23:17 | ED_ITS ---
HPI - Fall General Chief Complaint: Fall Stated Complaint: fall, weakness, diarrhea Time Seen by Provider: 10/11/25 22:40 History of Present Illness HPI Narrative: Patient is an 85 year old male status post unwitnessed fall in the bathroom. There was no loss of consciousness. Patient reports some weakness. Some nausea and diarrhea. No back pain. No focal weakness. Patient from home. Not on blood thinners. History of dementia. History of hypertension. No fever no chills. No diaphoresis. Patient is from home. Related Data Previous Rx's ?Medication ?Instructions ?Recorded walker #1 ea 02/25/25 risperidone 0.25 mg tablet 0.25 mg PO BEDTIME For agit ation 07/17/25 #30 tabs hydrocodone 5 mg-acetaminophen 325 1 tab PO BEDTIME UT N pain #30 tabs 08/05/25 mg tablet citalopram 20 mg tablet 20 mg PO DAILY #90 tabs 03/06 lisinopril 20 mg tablet 20 mg PO DAILY #90 tabs 1103/06 omeprazole 40 mg capsule,delayed 40 mg PO DAILY #90 ca ps 09/15/25 release aspirin 81 mg tablet,delayed 81 mg PO DAILY #90 tabs 1 11/16/24 release (Adult Low Dose Aspirin) ferrous sulfate 324 mg (65 mg 324 mg PO ONCE 90 days # 90 tabs 09/16/25 iron) tablet,delayed release Allergies Allergy/AdvReac Type Severity Reaction Status Date / Time Seasonal Allergies Allergy Intermediate sneezing Verified 10/11/25 21:18 No Known Drug Allergies (NO Allergy Unknown NONE Verified 10/11/25 21:18 KNOWN DRUG ALLERGIES) Review of Systems 2 Review of Systems: Positive fall. Positive back pain No bowel urinary issues No focal weakness PMFSH Past Medical History Medical History Dyspnea on exertion Post-COVID syndrome COVID-19 virus infection Hypertension, essential Benign prostatic hyperplasia Depression, major, recurrent Surgical History History of orthopedic surgery Family History Family History Father Unknown family medical history Mother Unknown family medical history Social History Social History Housing: House Alcohol intake: current Alcohol intake frequency: does not drink Patient Tobacco Use Status: Former Tobacco user Tobacco use type: Cigarette Smoked in Last 30 Days: No e-Cigarette/Vaping Use: Never Used Use of substances other than those prescribed or required for medical reasons: No Advance Directives: No Advance Directives Information Provided: Yes service: No Current occupational status: retired Cognitive needs: No Hearing needs: No Vision needs: No Physical Exam 2 Exam: Exam: Appearance: Alert. Oriented X3. No acute distress. Eyes: Pupils equal, round and reactive to light. ENT: Pharynx normal. Neck: Normal inspection. Neck supple. No lymph nodes noted. No crepitus CVS: Normal heart rate and rhythm. Pulses normal. Normal S1 and S2 Respiratory: No respiratory distress. Breath sounds normal. No Wheezing. No rales Abdomen: Soft and nontender. No rigidity. No distention. good BS x4 Skin: Skin warm and dry. Normal skin color. Normal skin turgor. Extremities: No lower extremity edema. Neurovascular intact to all extremities. No Lacerations. No Rash Neuro: Oriented X 3. No motor deficit. No sensory deficit. Moving all extermities. No slurred speech Vital Signs: Vital Signs: Last Vital Signs Temp 98.1 F 10/11/25 22:55 Pulse 62 10/12/25 01:46 Resp 16 10/12/25 01:46 BP 145/66 H 10/12/25 01:46 Pulse Ox 98 10/12/25 01:46 O2 Del Method Room Air 10/12/25 01:46 BMI result Body Mass Index 25.9 Medications Administered Discontinued Medications Generic Name Dose Route Start Last Admin Trade Name Freq PRN Reason Stop Dose Admin Sodium Chloride 1,000 mls @ 999 mls/hr 10/11/25 23:15 10/12/25 01:35 Ns IV 10/12/25 00:15 Infused .Q1H1M FERN Infusion Medical Decision Making Medical Decision Making [facility] Narrative: My interpretation of patient's EKG showed a sinus rhythm heart rate is 70 UT QRS QTC normal no acute ST segment elevation. Patient's troponin is negative. History of the same type of fall in the past. Most likely mechanical per patient. Patient's white count is normal hemoglobin is 12.9. This is approximately baseline. Creatinine of 1.6 slightly more elevated than prior of 1.3. Urine showed no signs of infection COVID flu RSV are negative. CT scan currently pending. I received sign-out from my colleague Dr. Pryor Head CT and cervical spine CT did not show any acute abnormality CT scan of the chest abdomen or pelvis did not show any acute abnormality Patient was ambulated around the emergency room, patient did well walking. Patient does not believe he needs a case management or PT eval. Differential Diagnosis Differential Diagnoses: The differential diagnosis associated with the presentation includes Dehydration, bleed, fracture, ACS, arrhythmia, electrolyte disturbance, infection Admission/Observation Consideration of admission/observation: Escalation of care including admission/observation considered Lab Data MDM Lab Attestation statement: I reviewed the patient's lab results. 10/11/25 21:26 10/11/25 21:26 Labs: Lab Results 10/11/25 10/11/25 10/12/25 Range/Units 21:16 21:26 00:34 WBC 6.5 (4.8-10.8) X10*3/uL RBC 4.65 (4.60-5.80) X10*6/uL Hgb 12.9 L (14.0-18.0) g/dl Hct 38.4 L (42.0-52.0) % MCV 82.6 (80.0-98.0) fL MCH 27.7 (27.0-33.0) pg MCHC 33.6 (31.0-36.0) g/dl RDW 14.5 (11.0-16.0) % Plt Count 169 (160-400) X10*3/uL MPV 10.5 (9.4-12.4) fL Immature Gran % (Auto) 0.6 H (0.0-0.4) % Neut % (Auto) 64.9 (45-73) % Lymph % (Auto) 23.7 (20-40) % [place] % (Auto) 6.6 (2-11) % Eos % (Auto) 3.7 (0-4) % Baso % (Auto) 0.5 (0-2) % Lymph # (Auto) 1.5 (1.2-4.9) X10*3/uL [place] # (Auto) 0.4 (0.1-1.2) X10*3/uL Eos # (Auto) 0.2 (0.0-0.4) X10*3/uL Baso # (Auto) 0.0 (0.0-0.2) X10*3/uL Abs Immat Gran (auto) 0.04 H (0.00-0.03) X10*3/uL Absolute Neuts (auto) 4.2 (2.0-8.3) x10*3/uL Absolute Nucleated RBC 0.000 (0.0-0.012) X10*3/uL Nucleated RBC % (auto) 0.0 (0.0-0.2) /100WBC Sodium 140 (135-145) mmol/L Potassium 3.9 (3.3-5.1) mmol/L Chloride 110 H (96-108) mmol/L Carbon Dioxide 22 (22-29) mmol/L Anion Gap 12 (12-20) BUN 19 H (9-16) mg/dL Creatinine 1.60 H (0.5-1.4) mg/dL Estim Creat Clear Calc 31.5 Estimated GFR 41 POC Glucose 127 H (60-115) mg/dL Random Glucose 148 H (60-115) mg/dL Calcium 9.0 (8.4-10.2) mg/dL Magnesium 2.1 (1.6-2.6) mg/dL Total Bilirubin 0.5 (0.0-1.0) mg/dL AST 19 (5-37) U/L ALT 15 (0-40) U/L Alkaline Phosphatase 74 (39-117) U/L Troponin I High Sens < 2.7 (<3.5-35.0) ng/L Total Protein 6.4 L (6.5-8.0) g/dL Albumin 4.2 (3.5-5.0) g/dL Urine Color Yellow Urine Appearance Clear Urine pH 5.5 (5.0-9.0) Ur Specific [place] 1.015 (1.005-1.025) Urine Protein Negative (Neg-Trace) mg/dL Urine Glucose (UA) Negative (Negative) mg/dL Urine Ketones Negative (Negative) mg/dL Urine Blood Negative (Negative) Urine Nitrite Negative (Negative) Ur Leukocyte Esterase Negative (Negative) Influenza Type A (PCR) (Negative) Influenza Type B (PCR) (Negative) RSV RNA Qual (PCR) (Negative) SARS-CoV-2 RNA (RT-PCR) (Negative) 10/12/25 Range/Units 00:35 WBC (4.8-10.8) X10*3/uL RBC (4.60-5.80) X10*6/uL Hgb (14.0-18.0) g/dl Hct (42.0-52.0) % MCV (80.0-98.0) fL MCH (27.0-33.0) pg MCHC (31.0-36.0) g/dl RDW (11.0-16.0) % Plt Count (160-400) X10*3/uL MPV (9.4-12.4) fL Immature Gran % (Auto) (0.0-0.4) % Neut % (Auto) (45-73) % Lymph % (Auto) (20-40) % [place] % (Auto) (2-11) % Eos % (Auto) (0-4) % Baso % (Auto) (0-2) % Lymph # (Auto) (1.2-4.9) X10*3/uL [place] # (Auto) (0.1-1.2) X10*3/uL Eos # (Auto) (0.0-0.4) X10*3/uL Baso # (Auto) (0.0-0.2) X10*3/uL Abs Immat Gran (auto) (0.00-0.03) X10*3/uL Absolute Neuts (auto) (2.0-8.3) x10*3/uL Absolute Nucleated RBC (0.0-0.012) X10*3/uL Nucleated RBC % (auto) (0.0-0.2) /100WBC Sodium (135-145) mmol/L Potassium (3.3-5.1) mmol/L Chloride (96-108) mmol/L Carbon Dioxide (22-29) mmol/L Anion Gap (12-20) BUN (9-16) mg/dL Creatinine (0.5-1.4) mg/dL Estim Creat Clear Calc Estimated GFR POC Glucose (60-115) mg/dL Random Glucose (60-115) mg/dL Calcium (8.4-10.2) mg/dL Magnesium (1.6-2.6) mg/dL Total Bilirubin (0.0-1.0) mg/dL AST (5-37) U/L ALT (0-40) U/L Alkaline Phosphatase (39-117) U/L Troponin I High Sens (<3.5-35.0) ng/L Total Protein (6.5-8.0) g/dL Albumin (3.5-5.0) g/dL Urine Color Urine Appearance Urine pH (5.0-9.0) Ur Specific [place] (1.005-1.025) Urine Protein (Neg-Trace) mg/dL Urine Glucose (UA) (Negative) mg/dL Urine Ketones (Negative) mg/dL Urine Blood (Negative) Urine Nitrite (Negative) Ur Leukocyte Esterase (Negative) Influenza Type A (PCR) NEGATIVE (Negative) Influenza Type B (PCR) NEGATIVE (Negative) RSV RNA Qual (PCR) NEGATIVE (Negative) SARS-CoV-2 RNA (RT-PCR) NEGATIVE (Negative) Independent Interpretation I performed an independent interpretation of an: EKG (Sinus heart rate is 75 UT QRS QTC normal no acute ST segment elevation) and CT Scan Radiology Impression Discussion of test interpretation with radiology: I have reviewed the radiologist's reading. Radiologist Impression: No acute intracranial findings. Specifically, no fracture or intracranial hemorrhage. Cervical spine CT: Bony alignment of the cervical vertebral bodies is anatomic. No fracture or prevertebral soft tissue swelling is identified. 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 Upper airway is patent. No apical pneumothorax. Chest CT: Study limited due to lack of intravenous contrast. 2. Given that limitation, no acute traumatic finding. 3. Large hiatal hernia as above. CT scan of abdomen/pelvis: 1. No acute traumatic findings given the limitations of a noncontrast study. 2. Cholelithiasis without CT findings of cholecystitis. 3. Nonobstructing left renal calculus. External Record Review External record reviewed: Outpatient record (Outpatient cardiology note reviewed) Chronic Conditions History of hypertension Social Determinants Patient?s care significantly limited by Social Determinants of Health including: Problems related to primary support group Critical Care Time Critical Care Time Critical Care Time: Yes Total Critical Care Time: 35 Attestation: I have personally provided critical care time. Time includes review of lab data, radiology results, discussion with consultants, and monitoring for potential decompensation. Intervention performed as documented. Discharge Plan Discharge Clinical Impression: Fall, Multiple contusions Patient Disposition: Home, Self-Care Instructions: Fall Prevention for Older Adults (ED) Additional Instructions: Please follow-up with your primary care physician tomorrow. If you have any worsening or new symptoms, please return to the emergency room or call 911 Prescriptions: No Action (DME) walker Misc See Rx Instructions .Route Qty: 1 0RF Rx Instructions: Use as directed risperidone 0.25 mg tablet 0.25 mg PO BEDTIME Qty: 30 0RF lisinopril 20 mg tablet 20 mg PO DAILY Qty: 90 0RF omeprazole 40 mg capsule,delayed release(DR/EC) 40 mg PO DAILY Qty: 90 0RF citalopram 20 mg tablet 20 mg PO DAILY Qty: 90 0RF aspirin [Adult Low Dose Aspirin] 81 mg tablet,delayed release (DR/EC) 81 mg PO DAILY Qty: 90 0RF ferrous sulfate 324 mg (65 mg iron) tablet,delayed release (DR/EC) 324 mg PO ONCE 90 Days Qty: 90 0RF Rx Instructions: Do not take it with milk products hydrocodone-acetaminophen 5-325 mg tablet 1 tab PO BEDTIME PRN (Reason: pain) Qty: 30 0RF Rx Instructions: Partial Fill upon patient request. Print Language: Sami
[2025-10-12 00:52] LABS: Appearance Urine Clear; Glucose Urine UA Negative (Negative); PH 5.5 (5.0-9.0); Specific Gravity - Urine 1.015 (1.005-1.025)
[2025-10-12 01:28] LABS: Resp Syncy Virus RNA Qual PCR NEGATIVE (Negative); SARS COV2 PCR INHOUSE NEGATIVE (Negative)
[2025-10-12 01:46] VITALS: BP 145/66; PULSE 62; RESP 16; O2SAT 98
--- NOTE | 2025-10-12 03:43 | PC.NURSE ---
Pt states having a walker at home that he does not like utilizing. Pt encouraged to ambulate with a walker at home for safety. Pt is able to ambulate with a steady gait, with and without a walker. Denies pain. made aware.
[2025-10-12 04:30] VITALS: BP 165/60; PULSE 65; RESP 18; TEMP 36.9; O2SAT 96
[2025-10-12 04:31] VITALS: BP 165/60; PULSE 65; RESP 18; TEMP 36.9; O2SAT 96
== END 2025-10-12 04:32 | disposition home or self-care (01) ==
PROVIDERS: Emergency Medicine Emergency Medical Services; Emergency Provider Emergency Medicine; PCP Internal Medicine
DX: S09.90XA Unspecified injury of head, initial encounter (principal); T14.8XXA Other injury of unspecified body region, initial encounter; W19.XXXA Unspecified fall, initial encounter; Y93.9 Activity, unspecified; Y92.003 Bedroom of unspecified non-institutional (private) residence as the place of occurrence of the external cause; R53.1 Weakness; R11.0 Nausea; R19.7 Diarrhea, unspecified; Z03.818 Encounter for observation for suspected exposure to other biological agents ruled out; I10 Essential (primary) hypertension; R00.1 Bradycardia, unspecified; Z87.891 Personal history of nicotine dependence
CPT/HCPCS: 36415; 70450; 71250; 72125; 74176; 80053; 81003; 82947; 83735; 84484; 85025; 87637; 93005; 96360; 96361; 99284; 99285

== ENCOUNTER → 2025-10-11 21:19 | Outpatient (BNV) | payer MEDICARE, OTHER, SELFPAY | PROVIDERS: Emergency Provider Emergency Medicine; PCP Internal Medicine; Visit Provider Internal Medicine | DX: R00.1 Bradycardia, unspecified (principal) | CPT/HCPCS: 93010 ==

== ENCOUNTER → 2025-10-12 | Outpatient (BNV) | payer MEDICARE, OTHER, SELFPAY | PROVIDERS: Emergency Provider Emergency Medicine; PCP Internal Medicine; Visit Provider Radiology Diagnostic Radiology | DX: Z04.3 Encounter for examination and observation following other accident (principal); N20.0 Calculus of kidney; K44.9 Diaphragmatic hernia without obstruction or gangrene; M47.812 Spondylosis without myelopathy or radiculopathy, cervical region; S09.90XA Unspecified injury of head, initial encounter | CPT/HCPCS: 70450; 71250; 72125; 74176 ==

== ENCOUNTER 2025-10-30 11:13 | Outpatient (AMB) | payer MEDICARE, OTHER, SELFPAY ==
[2025-10-30 11:26] VITALS: BP 120/60; PULSE 66; O2SAT 97; BMI 25.2
--- NOTE | 2025-10-30 11:26 | MHC.PC.OV ---
Vital Signs 10/30/25 11:26 Height 5 ft 6 in Weight 156 lb BMI 25.2 BP 120/60 Blood Pressure Location Lt brachial Position Sitting Pulse 66 Pulse Source Pulse Oximeter Pulse Oximetry (%) 97 Intake Visit Reasons: follow up Allergies Seasonal Allergies Allergy (Intermediate, Verified 10/30/25 11:28) sneezing No Known Drug Allergies (NO KNOWN DRUG ALLERGIES) Allergy (Unknown, Verified 10/30/25 11:28) NONE Medication List - Last Reconciled 10/30/25 by Elen Gamez MD aspirin (Adult Low Dose Aspirin) 81 mg PO DAILY citalopram 20 mg PO DAILY ferrous sulfate 324 mg PO ONCE 90 days hydrocodone-acetaminophen 5-325 mg 1 tab PO BEDTIME PRN lisinopril 20 mg PO DAILY omeprazole 40 mg PO DAILY risperidone 0.25 mg PO BEDTIME walker Use as directed Tobacco use date assessed: 02/25/25 Dental Screening Dental Screen Date: 02/25/25 HPI HPI Comments History of Present Illness Details History of Present Illness The patient is an 85 year old male presenting for chronic condition management and evaluation of a new-onset dry cough. Acute Dry Cough: - The patient developed a minor, dry cough yesterday. Chronic Kidney Disease: - Laboratory results from September showed slightly compromised kidney function. Hypertension: - The patient's blood pressure is well-controlled on lisinopril, with a recent reading of 120 systolic. Iron Supplementation: - The patient has been taking an iron supplement daily. - An iron level checked in July was normal. Medications: - Citalopram - Iron supplement, taken daily - Lisinopril - Omeprazole - Risperidone Social History: - Functional Status: The patient required assistance to get onto the exam table. - Nutrition: The patient is reported to be eating okay. Diagnostic Results: - Labs from September: Kidney function was slightly compromised; electrolytes, blood sugar, and liver enzymes were normal. - Labs from July: Iron level was normal. [facility] Medical History Dyspnea on exertion Post-COVID syndrome COVID-19 virus infection Hypertension, essential Benign prostatic hyperplasia Depression, major, recurrent Surgical History History of orthopedic surgery Family History Father Unknown family medical history Mother Unknown family medical history Social History Housing: House Alcohol intake: current Alcohol intake frequency: does not drink Patient Tobacco Use Status: Former Tobacco user Tobacco use type: Cigarette e-Cigarette/Vaping Use: Never Used service: No Current occupational status: retired Cognitive needs: No Hearing needs: No Vision needs: No Questionnaire Thrive Questionnaire Date Thrive assessed: 02/25/25 I am a: Patient What is your living situation today?: I do not have a steady places to live I am temporarily staying with others Within the past 12 months, did the food you bought not last and you didn't have the money to get more?: Never true Within the past 12 months, did you worry whether your food would run out before you got money to buy more?: Never true Do you have trouble paying for medicines?: No Do you have trouble getting transportation to medical appointments?: Yes Do you have trouble paying your heating and electricity bill?: No Do you have trouble taking care of your child, family member or friend?: No Do you have trouble with day-to-day activities such as bathing, preparing meals, shopping, managing finances, etc.?: No Are you currently unemployed and looking for a job?: No Are you interested in more education?: No Currently or been in a relationship where the following occur: No concerns reported THRIVE Score: 2 BENJAMIN-7 AMB Questionnaire BENJAMIN-7 Date BENJAMIN - 7 assessed: 02/25/25 Source: Developed by Drs. Eric Watson, Starr Cortes, Gildardo Rome and colleagues, with an educational zaria from [email or web address]. Review of Systems Narrative Review of Systems - General: No fever no chills - Neurological: No headaches no dizziness - Ear nose throat: No sore throat no hearing difficulty no ear pain - Cardiovascular: No syncope, no chest pain, no palpitations - Gastrointestinal: No nausea vomiting or diarrhea - Endocrine: No polyuria polydipsia no heat intolerance - Genitourinary: No dysuria , no blood in urine Physical exam (Primary Care) Vital Signs: Last Vital Signs Pulse 66 10/30/25 11:26 BP 120/60 10/30/25 11:26 Pulse Ox 97 10/30/25 11:26 BMI result Body Mass Index 25.2 Tobacco/Smoking Status: Tobacco use Status Tobacco use date assessed 02/25/25 10/30/25 11:28 Patient Tobacco Use Status Former Tobacco user 10/30/25 11:28 Tobacco use type Cigarette 10/30/25 11:28 e-Cigarette/Vaping Use Never Used 10/30/25 11:28 Thrive Assessment: Date of Thrive Assessment Date Thrive assessed 02/25/25 10/30/25 11:28 Currently or been in a relationship where the following occur: No concerns reported Narrative Physical Exam General: No acute distress HEENT: No acute findings Neck: Supple Respiratory system: Lungs are clear, able to talk in full sentences, no audible wheeze Cardiovascular: S1-S2 regular in rate and rhythm Gastrointestinal: No pain Extremities: No new findings DIRECTOR BIOSTATISTICS: Alert awake oriented x3 motor intact, unsteady on feet Skin: Normal turgor Coding Level of Care Code Est Pt Level 4 (33234) Add On Problem Visit Only Diagnoses Hypertension, essential I10 Recurrent major depressive disorder, in partial remission F33.41 Active/Remission status: in partial remission Chronic GERD K21.9 Nephropathy N28.9 Anemia in other chronic diseases classified elsewhere D63.8 Anemia type: other cause Other causes of anemia: chronic disease, other Dementia, senile F03.90 Assessment & Plan Assessment & Plan (1) Hypertension, essential: Code(s): I10 - Essential (primary) hypertension Category: Medical (2) Depression, major, recurrent: Code(s): F33.9 - Major depressive disorder, recurrent, unspecified Category: Medical Qualifiers: Active/Remission status: in partial remission Qualified Code(s): F33.41 - Major depressive disorder, recurrent, in partial remission (3) Chronic GERD: Code(s): K21.9 - Gastro-esophageal reflux disease without esophagitis Category: Medical (4) Nephropathy: Code(s): N28.9 - Disorder of kidney and ureter, unspecified Category: Medical (5) Anemia: Code(s): D64.9 - Anemia, unspecified Category: Medical Qualifiers: Anemia type: other cause Other causes of anemia: chronic disease, other Qualified Code(s): D63.8 - Anemia in other chronic diseases classified elsewhere (6) Dementia, senile: Code(s): F03.90 - Unspecified dementia, unspecified severity, without behavioral disturbance, psychotic disturbance, mood disturbance, and anxiety Category: Medical Plan Problem List - Acute dry cough - Chronic Kidney Disease, unspecified - Hypertension - Medication management for iron supplementation - dementia / agitation - anxiety/dep/ stable Plan - For the dry cough, as the lungs are clear on examination, no immediate action is needed, but symptoms should be monitored. - The slightly compromised kidney function will be monitored with periodic lab tests. - The iron supplement dosage will be reduced from daily to every other day, such as three times a week (e.g., Sunday, Sunday, Sunday), to prevent excessive intake. - Blood tests, including a check of the iron level, will be repeated at the next visit. 3M - The patient will continue his current medications for blood pressure control and other conditions. Orders: Orders Complete Blood Count Auto Diff Today D63.8 - Anemia in other chronic diseases classified elsewhere, F03.90 - Unspecified dementia, unspecified severity, without behavioral disturbance, psychotic disturbance, mood disturbance, and anxiety, F33.41 - Major depressive disorder, recurrent, in partial remission, I10 - Essential (primary) hypertension, K21.9 - Gastro-esophageal reflux disease without esophagitis, N28.9 - Disorder of kidney and ureter, unspecified Comprehensive Met. Panel Today D63.8 - Anemia in other chronic diseases classified elsewhere, F03.90 - Unspecified dementia, unspecified severity, without behavioral disturbance, psychotic disturbance, mood disturbance, and anxiety, F33.41 - Major depressive disorder, recurrent, in partial remission, I10 - Essential (primary) hypertension, K21.9 - Gastro-esophageal reflux disease without esophagitis, N28.9 - Disorder of kidney and ureter, unspecified LDL Cholesterol Direct Today D63.8 - Anemia in other chronic diseases classified elsewhere, F03.90 - Unspecified dementia, unspecified severity, without behavioral disturbance, psychotic disturbance, mood disturbance, and anxiety, F33.41 - Major depressive disorder, recurrent, in partial remission, I10 - Essential (primary) hypertension, K21.9 - Gastro-esophageal reflux disease without esophagitis, N28.9 - Disorder of kidney and ureter, unspecified Ferritin Today D63.8 - Anemia in other chronic diseases classified elsewhere, F03.90 - Unspecified dementia, unspecified severity, without behavioral disturbance, psychotic disturbance, mood disturbance, and anxiety, F33.41 - Major depressive disorder, recurrent, in partial remission, I10 - Essential (primary) hypertension, K21.9 - Gastro-esophageal reflux disease without esophagitis, N28.9 - Disorder of kidney and ureter, unspecified Vitamin B12 Today D63.8 - Anemia in other chronic diseases classified elsewhere, F03.90 - Unspecified dementia, unspecified severity, without behavioral disturbance, psychotic disturbance, mood disturbance, and anxiety, F33.41 - Major depressive disorder, recurrent, in partial remission, I10 - Essential (primary) hypertension, K21.9 - Gastro-esophageal reflux disease without esophagitis, N28.9 - Disorder of kidney and ureter, unspecified Vitamin D 25-OH (D2 and D3) Today D63.8 - Anemia in other chronic diseases classified elsewhere, F03.90 - Unspecified dementia, unspecified severity, without behavioral disturbance, psychotic disturbance, mood disturbance, and anxiety, F33.41 - Major depressive disorder, recurrent, in partial remission, I10 - Essential (primary) hypertension, K21.9 - Gastro-esophageal reflux disease without esophagitis, N28.9 - Disorder of kidney and ureter, unspecified
== END 2025-10-30 13:23 | disposition home or self-care (01) ==
LOC: HO.HMCC 11:14
PROVIDERS: PCP Internal Medicine; Visit Provider Internal Medicine
DX: I10 Essential (primary) hypertension (principal); F03.90 Unspecified dementia, unspecified severity, without behavioral disturbance, psychotic disturbance, mood disturbance, and anxiety; F33.41 Major depressive disorder, recurrent, in partial remission; K21.9 Gastro-esophageal reflux disease without esophagitis; N28.9 Disorder of kidney and ureter, unspecified; D63.8 Anemia in other chronic diseases classified elsewhere

== ENCOUNTER → 2025-10-30 11:13 | Outpatient (BNVA) | payer MEDICARE, OTHER, SELFPAY | PROVIDERS: PCP Internal Medicine; Visit Provider Internal Medicine | DX: I10 Essential (primary) hypertension (principal); F33.41 Major depressive disorder, recurrent, in partial remission; K21.9 Gastro-esophageal reflux disease without esophagitis; N18.9 Chronic kidney disease, unspecified; D63.8 Anemia in other chronic diseases classified elsewhere; F03.90 Unspecified dementia, unspecified severity, without behavioral disturbance, psychotic disturbance, mood disturbance, and anxiety; F41.9 Anxiety disorder, unspecified | CPT/HCPCS: 99212 ==